=== PATIENT | female | born 1945 | race Caucasian/White ===

== ENCOUNTER → 2016-11-30 | Outpatient (CLI) | payer BC ==
[~2016-11-30] MED LIST: CHOL2000 PO; DILT240C56 PO; SIMV40TA4 PO; TRIA37.5 PO
--- NOTE | 2016-11-30 16:25 | MAMMOGRAPHY REPORT ---
BILATERAL DIGITAL SCREENING MAMMOGRAM WITH CAD: 11/30/2016 CLINICAL HISTORY: Routine screening examination. TECHNIQUE: Bilateral CC and MLO views were obtained. Current study was also evaluated with a Comput er Aided Detection (CAD) system. COMPARISON: Comparison is made to exams dated: 11/26/2015 mammogram, 05/25/2014 ultrasound, 11/22/2013 m ammogram, 05/25/2014 mammogram, 11/17/2013 mammogram, and 11/20/2014 mammogram - [facility]. BREAST COMPOSITION: There are scattered areas of fibroglandular density in both breasts. FINDINGS: There is a stable intramammary lymph node in the right upper outer posterior breast. Stab le scattered and grouped punctate benign-appearing microcalcifications bilaterally, most numerous in the left superior breast. No new suspicious mass, architectural distortion or cluster of microcalc ifications is seen. IMPRESSION: ACR BI-RADS CATEGORY 1: NEGATIVE There is no mammographic evidence of malignancy. A 1 year screening mammogram is recommended. The p atient will receive written notification of the results. Approximately 10% of breast cancers are not detected with mammography. A negative mammographic repor t should not delay biopsy if a clinically suggestive mass is present. Denise Tejada M.D. ay/:11/30/2016 14:24:04 Logistic Specialist: Leila VENTURA)(Mckenna), [facility] letter sent: Normal 1/2 BI-RADS Code: ACR BI-RADS Category 1: Negative
== END | disposition home or self-care (01) ==
LOC: C.MAMM 11:09
PROVIDERS: ATTEND Obstetrics & Gynecology
DX: Z12.31 Encounter for screening mammogram for malignant neoplasm of breast (principal)

== ENCOUNTER → 2017-01-21 | Outpatient (CLI) | payer BC ==
[2017-01-21 12:15] LABS: HEMATOCRIT 44.6 % (37-47); MEAN CELL VOLUME 93.1 fL (80-100); MEAN CORPUSCULAR HEMOGLOBIN 30.7 pg (25-34); MEAN PLATELET VOLUME 10.3 fL (7.4-10.4); PLATELET COUNT 294 K/uL (130-400); RED BLOOD COUNT 4.79 M/uL (4.2-5.4)
[2017-01-21 12:30] LABS: ESTIMATED AVERAGE GLUCOSE 117 mg/dl; HA1C FLAG Normal (Normal)
[2017-01-21 12:31] LABS: ALT/SGPT 29 U/L (12-78); AST/SGOT 21 U/L (15-37); BLOOD UREA NITROGEN 15 mg/dl (7-18); BUN/CREATININE RATIO 19.6 (10-20); CARBON DIOXIDE 28 mmol/L (21-32); CHLORIDE 105 mmol/L (98-107); CHOLESTEROL 139 mg/dl (0-200); CREATININE 0.77 mg/dl (0.60-1.20); GLUCOSE 101 mg/dl (70-99); POTASSIUM 3.7 mmol/L (3.5-5.1); SODIUM 142 mmol/L (136-145); TRIGLYCERIDES 90 mg/dl (0-150); VERY LOW DENSITY LIPOPROT CALC 18 mg/dl
[2017-01-21 12:33] LABS: ALKALINE PHOSPHATASE 67 U/L (45-117); CHOLESTEROL/HDL RATIO 2.5; HDL CHOLESTEROL 56 mg/dl; LDL CHOLESTEROL CALCULATED 65 mg/dl
[2017-01-21 12:38] LABS: CALCIUM 9.3 mg/dl (8.5-10.1)
== END | disposition home or self-care (01) ==
LOC: C.LABBFT 07:35
PROVIDERS: ATTEND Internal Medicine
DX: R73.01 Impaired fasting glucose (principal); I10 Essential (primary) hypertension; E55.9 Vitamin D deficiency, unspecified; E78.5 Hyperlipidemia, unspecified

== ENCOUNTER → 2017-08-19 | Outpatient (CLI) | payer BC ==
[~2017-08-19] MED LIST changes: +DILT-203 PO; -DILT240C56 PO
[2017-08-19 12:18] LABS: HEMATOCRIT 45.7 % (37-47); MEAN CELL VOLUME 93.6 fL (80-100); MEAN CORPUSCULAR HEMOGLOBIN 31.6 pg (25-34); MEAN CORPUSCULAR HGB CONC 33.7 g/dl (32-36); MEAN PLATELET VOLUME 10.3 fL (7.4-10.4); PLATELET COUNT 293 K/uL (130-400); RED BLOOD COUNT 4.88 M/uL (4.2-5.4); WHITE BLOOD COUNT 6.63 K/uL (4.8-10.8)
[2017-08-19 12:31] LABS: ALT/SGPT 30 U/L (12-78); AST/SGOT 20 U/L (15-37); BLOOD UREA NITROGEN 19 mg/dl (7-18); BUN/CREATININE RATIO 19.1 (10-20); CALCIUM 9.4 mg/dl (8.5-10.1); CARBON DIOXIDE 28 mmol/L (21-32); CHLORIDE 102 mmol/L (98-107); CHOLESTEROL 151 mg/dl (0-200); CREATININE 0.98 mg/dl (0.60-1.20); GLUCOSE 108 mg/dl (70-99); POTASSIUM 3.8 mmol/L (3.5-5.1); SODIUM 138 mmol/L (136-145); TRIGLYCERIDES 108 mg/dl (0-150); VERY LOW DENSITY LIPOPROT CALC 22 mg/dl
[2017-08-19 12:37] LABS: ESTIMATED AVERAGE GLUCOSE 117 mg/dl; HA1C FLAG Normal (Normal)
[2017-08-19 12:41] LABS: ALKALINE PHOSPHATASE 83 U/L (45-117); HDL CHOLESTEROL 50 mg/dl; LDL CHOLESTEROL CALCULATED 79 mg/dl
== END | disposition home or self-care (01) ==
LOC: C.LABBFT 07:18
PROVIDERS: ATTEND Internal Medicine
DX: E78.5 Hyperlipidemia, unspecified (principal); I10 Essential (primary) hypertension; R73.01 Impaired fasting glucose; E55.9 Vitamin D deficiency, unspecified

== ENCOUNTER → 2017-12-06 | Outpatient (CLI) | payer BC ==
--- NOTE | 2017-12-07 07:46 | MAMMOGRAPHY REPORT ---
BILATERAL DIGITAL SCREENING MAMMOGRAM TOMOSYNTHESIS WITH CAD: 12/06/2017 CLINICAL HISTORY: Routine screening. Patient has no complaints. TECHNIQUE: Breast tomosynthesis in addition to standard 2D mammography was performed. Current study was also evaluated with a Computer Aided Detection (CAD) system. COMPARISON: Comparison is made to exams dated: 11/30/2016 mammogram, 11/26/2015 mammogram, 11/20/2014 ma mmogram, 05/25/2014 mammogram, 11/22/2013 mammogram, and 11/17/2013 mammogram - [facility]. BREAST COMPOSITION: There are scattered areas of fibroglandular density in both breasts. FINDINGS: There is a stable intramammary lymph node in the upper outer posterior right breast. No miller spicious mass, architectural distortion or cluster of microcalcifications is seen. IMPRESSION: ACR BI-RADS CATEGORY 1: NEGATIVE There is no mammographic evidence of malignancy. A 1 year screening mammogram is recommended. The pa tient will receive written notification of the results. Approximately 10% of breast cancers are not detected with mammography. A negative mammographic report should not delay biopsy if a clinically suggestive mass is present. Denise Tejada M.D. ay/:12/06/2017 15:59:48 Competitive Athlete: Marivel VILLALOBOS(Jose Ramon)(Mckenna)([place]), [facility] letter sent: Normal 1/2 BI-RADS Code: ACR BI-RADS Category 1: Negative
== END | disposition home or self-care (01) ==
LOC: C.MAMM 11:03
PROVIDERS: ATTEND Obstetrics & Gynecology
DX: Z12.31 Encounter for screening mammogram for malignant neoplasm of breast (principal)

== ENCOUNTER → 2018-03-21 | Outpatient (CLI) | payer BC ==
[2018-03-21 17:41] LABS: ALBUMIN 3.8 gm/dl (3.4-5.0); ALKALINE PHOSPHATASE 83 U/L (45-117); ALT/SGPT 28 U/L (12-78); AST/SGOT 20 U/L (15-37); BLOOD UREA NITROGEN 15 mg/dl (7-18); CALCIUM 9.1 mg/dl (8.5-10.1); CARBON DIOXIDE 27 mmol/L (21-32); CHOLESTEROL 140 mg/dl (0-200); CREATININE 1.02 mg/dl (0.60-1.20); GLUCOSE 96 mg/dl (70-99); LDL CHOLESTEROL CALCULATED 67 mg/dl; POTASSIUM 3.7 mmol/L (3.5-5.1); SODIUM 136 mmol/L (136-145)
== END | disposition home or self-care (01) ==
LOC: C.LABBFT 12:06
PROVIDERS: ATTEND Internal Medicine
DX: E78.5 Hyperlipidemia, unspecified (principal); E55.9 Vitamin D deficiency, unspecified; R73.01 Impaired fasting glucose

== ENCOUNTER 2024-05-31 13:38 | Inpatient (IN) ==
--- NOTE | 2024-05-31 13:49 | Emergency Department Note ---
Impression & Plan Ambulatory dysfunction, Arthritis of left hip ED Provider Note NAME: AJITH KEITH AGE: 79 SEX: F : 1945 ARRIVES VIA: Ambulance INFORMANT: Patient ED PROVIDER(S): BROCK Sinclair, Shahla Morris DO CHIEF COMPLAINT: Left hip pain HISTORY OF PRESENT ILLNESS: This 79-year-old female patient presents to the emergency department via ambulance for evaluation of left hip pain. She reports pain is worsened over the last 4 days. She states she has a history of osteoarthritis in the left hip, and follows with orthopedics. She reports they recommended a left total hip, however the patient has worsened in the interim. Family is at bedside, and states the patient is having significant ambulatory dysfunction. The patient denies any numbness or tingling in the extremity, she denies any recent falls, or new injury. She is alert and oriented, she is neurovascularly intact. REVIEW OF SYSTEMS: A review of systems was performed with positives and pertinent negatives listed in the history of present illness. All other systems were reviewed and are negative. ALLERGIES: See below MEDICATIONS: See below PMH: See below PHYSICAL EXAM: VITALS: Vitals are noted on the nurse's note and reviewed by myself. Vital signs stable. GENERAL: 79-year-old female, in no acute distress, nondiaphoretic, well- developed well-nourished. SKIN: The skin was without rashes, erythema, edema, or bruising. HEAD: Normocephalic atraumatic. HEART: Regular rate and rhythm without murmurs gallops or rubs. LUNGS: Clear to auscultation bilaterally without wheezes, rales or rhonchi. No retractions or accessory muscle use. ABDOMEN: Positive bowel sounds x 4. Soft, nontender, without masses or organomegaly. sign negative. No guarding or rebound tenderness. MUSCULOSKELETAL: Limited ROM left lower extremity due to severe pain in the left hip joint, lateral left hip. TTP lateral left hip, posterior left knee, popliteal fossa. Limited ROM left knee, due to pain and proximal extremity. DP pulse intact, capillary refill <3. NEURO: Patient was alert and oriented to person place and time. No focal neurological deficits. MEDICAL DECISION MAKING: The patient is a pleasant, 79-year-old female who arrives to the emergency department for evaluation of the above-stated complaint. A saline lock was established, CBC, CMP, urinalysis were obtained. CBC shows no leukocytosis, with a stable hemoglobin and hematocrit, CMP is unremarkable, urinalysis negative for infection. CT imaging of the left hip, as well as the left lumbar spine were obtained which shows severe osteoarthritic changes of the left hip, with no acute bony abnormality. Ultrasound imaging was obtained to rule out DVT, which was negative. Family was able to inform nursing staff, as well as myself that the patient has been falling recently, and has worsened ambulatory status over the last few weeks. The patient was provided a topical Lidoderm patch, IV Toradol, and IV acetaminophen for pain control. An ambulatory trial was attempted, however was unsuccessful as the patient was unable to bear weight on the extremity. At that time I felt the need to admit the patient for ambulatory dysfunction, and pain control. [facility], Dr. Acosta who agreed to accept the patient for admission under his care. Orthopedic consult will be obtained during the patient's stay. Please refer to Dr. Acosta's documentation for further patient workup and care. The patient's case was discussed with Dr. Morris, who agreed with my evaluation and treatment plan. DIFFERENTIAL DIAGNOSIS: Fracture, subluxation, dislocation, contusion, ligamentous injury, neurovascular, compartment syndrome, as well as other pathologies. The chart was completed utilizing [employer] Speech voice recognition software. Grammatical errors, random word insertions, pronoun errors, and incomplete sentences are an occasional consequence of this system due to software limitations, ambient noise, and hardware issues. Any formal questions or concerns about the content, text, or information contained within the body of this dictation should be directly addressed to the physician for clarification. Past Med/Surg History Problem List (Updated 06/05/24 @ 01:07 by BROCK Early) Arthritis of left hip (Acute) Lower extremity edema Ambulatory dysfunction (Acute) Paresthesia of right foot Hip arthritis Greater trochanteric pain syndrome Tubular adenoma of colon Urinary incontinence Medicare annual wellness visit, subsequent Vitamin D deficiency (Chronic) Hypertension (Chronic) Impaired fasting glucose (Chronic) Hypercholesteremia (Chronic) Medical History (Updated 06/05/24 @ 01:07 by BROCK Early) Hypertension Hyperlipidemia Surgical History History of colonoscopy (07/30/16) Dr. Pozo, three polyps ranging 5-8 mm from rectum and sigmoid colon, tubular adenoma and hyperplastic, repeat recommended 3 years History of left cataract extraction Was given 2mg of IV versed without apparent complications History of rectocele HX OF RECTOCELE REPAIR History of bilateral tubal ligation History of cholecystectomy Family History Brother Prostate cancer Other No family history of adverse response to anesthesia Denies family history of Ovarian cancer Myocardial infarction Breast cancer Colorectal cancer Social History Smoking Status: Never smoker Tobacco Type: Cigarettes Cigarettes Per Day: QUIT MANY YEARS AGO; Second Hand Exposure: No; Do You Dip or Chew Tobacco: No; Hx Alcohol Use: No Hx Substance Use: No Preferred Language: Latvian Communication Ability: Effective Visual Impairment: No Limitations Hearing Ability: Use of Hearing Aid Asic Engineer Required: No Beliefs That Will Affect Care: None marital status: Current Living Situation: Alone current 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 status: retired 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[employer], [employer] Feels Safe at Home: Yes Safety Concerns: Feels Safe At This Time Childhood Exposure to Second-Hand Smoke: Yes Diet: low salt Diet Comment: watches her salt intake, does this by choice caffeine: Yes during the past year weight has: remained stable Dental Care, Regularly: No Physical Activity Frequency: Daily Physical Activity Frequency Comment: walking about 30 min a day Seatbelt Use: always Sunscreen Use: No Assistive Devices: Walker Allergies Allergies Allergy/AdvReac Type Severity Reaction Status Date / Time enalapril Allergy Unknown COUGH Verified 05/19/24 13:22 Home Meds Home Medications Medication Instructions Recorded Confirmed celecoxib 100 mg capsule (Celebrex) 100 mg PO BID PRN Other 05/31/24 05/31/24 Previous Rx's Medication Instructions Recorded ergocalciferol (vitamin D2) 1,250 50,000 unit PO WEEKLY #12 caps 11/13/23 mcg (50,000 unit) capsule triamterene 37.5 1 cap PO DAILY #90 caps 11/13/23 mg-hydrochlorothiazide 25 mg capsule diltiazem HCl 240 mg capsule,24 240 mg PO DAILY #90 caps 05/19/24 hr,extended release oxybutynin chloride 15 mg 15 mg PO DAILY #90 tabs 05/19/24 tablet,extended release 24 hr rosuvastatin 10 mg tablet 10 mg PO DAILY #90 tabs 05/19/24 Results & Data (ED) Vital Signs Vital Signs - 24 hr 05/31/24 13:39 Temperature 36.6 C Temperature Source Oral Pulse Rate 81 Pulse Rhythm Regular Pulse Strength Normal Respiratory Rate 20 Respiratory Effort / Characteristics Non-Labored Spontaneous Respiratory Depth Normal Blood Pressure 163/92 H Blood Pressure Mean 115 Blood Pressure Position Sitting Pulse Oximetry 96 Oxygen Delivery Method Room Air Sepsis Recent Fever Within 48 Hours No Sepsis New/Unexplained Change in Mental Status N/A Sepsis Action Taken by Nursing No Action Required Home Medications Current Medication List: was personally reviewed by me Laboratory Data Attestation: I reviewed the patient's lab results. 06/03/24 05:47 06/03/24 05:47 Lab Results 05/31/24 Range/Units 14:48 WBC 8.37 (4.8-10.8) K/ul RBC 4.09 L (4.20-5.40) M/uL Hgb 12.8 (12.0-16.0) g/dl Hct 37.6 (37.0-47.0) % MCV 91.9 (80.0-100.0) fL MCH 31.3 (25.0-34.0) pg MCHC 34.0 (32.0-36.0) g/dL RDW Std Deviation 46.5 H (36.4-46.3) fL RDW Coeff of Mitchell 13.6 (11.5-14.5) % Plt Count 259 (130-400) K/uL MPV 9.6 (9.4-12.4) fL Immature Gran % (Auto) 0.7 % Neut % (Auto) 75.5 % Lymph % (Auto) 11.8 % [place] % (Auto) 10.8 % Eos % (Auto) 0.8 % Baso % (Auto) 0.4 % Neut # (Auto) 6.32 (1.40-6.50) K/uL Lymph # (Auto) 0.99 L (1.20-3.40) K/uL [place] # (Auto) 0.90 H (0.11-0.59) K/uL Eos # (Auto) 0.07 (0.00-0.50) K/uL Baso # (Auto) 0.03 (0.00-0.20) K/uL Immature Gran # (Auto) 0.06 (0.01-0.20) K/uL Sodium 141 (136-145) mmol/L Potassium 4.2 (3.5-5.1) mmol/L Chloride 105 (98-107) mmol/L Carbon Dioxide 30 (21-32) mmol/L Anion Gap 6 (3-11) BUN 13 (6-23) mg/dl Creatinine 1.06 (0.6-1.2) mg/dl Est Cr Clr Drug Dosing 46.0 ml/min eGFR 53.44 BUN/Creatinine Ratio 12.3 (10-20) Glucose 95 (70-99(Fasting)) mg/dl Calcium 9.3 (8.6-10.3) mg/dl Total Bilirubin 0.6 (0.2-1.0) mg/dl AST 17 (13-39) U/L ALT 15 (7-52) U/L Alkaline Phosphatase 70 (34-104) U/L Total Protein 6.4 (6.0-8.3) gm/dl Albumin 3.8 (3.4-5.0) gm/dl Globulin 2.6 (2.5-4.0) gm/dl Albumin/Globulin Ratio 1.5 (0.9-2) Administered Medications Acetaminophen (Acetaminophen 325 Mg Tab) 650 mg PO Q4H PRN PRN Reason: Fever/Pain (Pain 1-7) Stop: 06/30/24 20:11 Last Admin: 06/04/24 18:08 Dose: 650 mg Documented By: Admin: 06/03/24 19:15 Dose: 650 mg Documented By: Admin: 06/03/24 12:50 Dose: 650 mg Documented By: Admin: 06/03/24 01:33 Dose: 650 mg Documented By: Admin: 06/02/24 02:15 Dose: 650 mg Documented By: Admin: 06/01/24 00:41 Dose: 650 mg Documented By: ZAKIA Diltiazem HCl (Diltiazem Hcl 240 Mg Capcr) 240 mg PO DAILY GIANCARLO Stop: 07/01/24 08:59 Last Admin: 06/04/24 08:10 Dose: 240 mg Documented By: Admin: 06/03/24 08:45 Dose: 240 mg Documented By: Admin: 06/02/24 09:19 Dose: 240 mg Documented By: Admin: 06/01/24 07:56 Dose: 240 mg Documented By: IAN Heparin Sodium (Porcine) (Heparin Sod 5,000 Unit/0.5 Ml Vial) 5,000 units SQ Q12 GIANCARLO Stop: 06/30/24 20:59 Last Admin: 06/04/24 20:24 Dose: 5,000 units Documented By: Admin: 06/04/24 08:17 Dose: 5,000 units Documented By: Admin: 06/03/24 21:05 Dose: 5,000 units Documented By: Admin: 06/03/24 08:51 Dose: 5,000 units Documented By: Admin: 06/02/24 20:29 Dose: 5,000 units Documented By: Admin: 06/02/24 09:22 Dose: 5,000 units Documented By: Admin: 06/01/24 20:10 Dose: 5,000 units Documented By: Admin: 06/01/24 07:56 Dose: 5,000 units Documented By: Admin: 05/31/24 21:55 Dose: 5,000 units Documented By: ZAKIA Lidocaine (Lidocaine 5% 1 Patch) 1 patch TD QAM GIANCARLO Stop: 07/01/24 08:59 Last Admin: 06/04/24 08:11 Dose: 1 patch Documented By: Admin: 06/03/24 12:50 Dose: 1 patch Documented By: Admin: 06/02/24 09:17 Dose: 1 patch Documented By: Admin: 06/01/24 07:56 Dose: 1 patch Documented By: IAN Miscellaneous (Remove Lidoderm Patch) 1 each N/A DAILY@2100 [facility] Stop: 06/30/24 20:59 Last Admin: 06/04/24 20:25 Dose: 1 each Documented By: Admin: 06/03/24 21:06 Dose: 1 each Documented By: Admin: 06/02/24 20:29 Dose: 1 each Documented By: Admin: 06/01/24 20:10 Dose: 1 each Documented By: Admin: 05/31/24 21:55 Dose: 1 each Documented By: ZAKIA Miscellaneous (Remove Lidoderm Patch) 1 each N/A DAILY@2100 [facility] Stop: 06/30/24 20:59 Last Admin: 06/04/24 20:25 Dose: Not Given Documented By: Admin: 06/03/24 21:06 Dose: Not Given Documented By: Admin: 06/02/24 20:29 Dose: Not Given Documented By: Admin: 06/02/24 00:21 Dose: Not Given Documented By: Admin: 05/31/24 21:55 Dose: Not Given Documented By: ZAKIA Oxybutynin Chloride (Oxybutynin Chloride Xl 5 Mg Tabcr) 15 mg PO DAILY [facility] Stop: 07/01/24 08:59 Last Admin: 06/04/24 08:10 Dose: 15 mg Documented By: Admin: 06/03/24 08:45 Dose: 15 mg Documented By: Admin: 06/02/24 09:19 Dose: 15 mg Documented By: Admin: 06/01/24 07:56 Dose: 15 mg Documented By: IAN Rosuvastatin Calcium (Rosuvastatin Calcium 10 Mg Tab) 10 mg PO DAILY [facility] Stop: 07/01/24 08:59 Last Admin: 06/04/24 10:51 Dose: 10 mg Documented By: Admin: 06/03/24 08:45 Dose: 10 mg Documented By: Admin: 06/02/24 09:18 Dose: 10 mg Documented By: Admin: 06/01/24 07:56 Dose: 10 mg Documented By: IAN Tramadol HCl (Tramadol Hcl 50 Mg Tablet) 50 mg PO Q6H PRN PRN Reason: Pain, breakthrough Stop: 07/01/24 13:55 Last Admin: 06/04/24 21:30 Dose: 50 mg Documented By: Admin: 06/03/24 20:57 Dose: 50 mg Documented By: DILMA Triamterene/Hydrochlorothiazide (Triamterene/Hctz 37.5/25mg Tab) 1 tab PO QAM [facility] Stop: 07/01/24 08:59 Last Admin: 06/04/24 08:10 Dose: 1 tab Documented By: Admin: 06/03/24 08:45 Dose: 1 tab Documented By: Admin: 06/02/24 09:19 Dose: 1 tab Documented By: Admin: 06/01/24 07:56 Dose: 1 tab Documented By: IAN Discontinued Medications Acetaminophen (Acetaminophen 500 Mg Tab) 1,000 mg PO NOW STA Stop: 05/31/24 14:38 Last Admin: 05/31/24 14:46 Dose: 1,000 mg Documented By: GIOVANNA Acetaminophen (Acetaminophen 325 Mg Tab) 650 mg PO NOW STA Stop: 05/31/24 19:18 Last Admin: 05/31/24 19:23 Dose: 650 mg Documented By: Ketorolac Tromethamine (Ketorolac Tromethamine 15 Mg/Ml Vial) 10 mg IV NOW ONE Stop: 05/31/24 14:38 Last Admin: 05/31/24 14:46 Dose: 10 mg Documented By: GIOVANNA Lidocaine (Lidocaine 5% 1 Patch) 1 patch TD NOW STA Stop: 05/31/24 14:38 Last Admin: 05/31/24 14:45 Dose: 1 patch Documented By: GIOVANNA Morphine Sulfate (Morphine Sulfate 2 Mg/Ml Carp) 2 mg IV NOW STA Stop: 05/31/24 19:25 Last Admin: 05/31/24 19:50 Dose: Not Given Documented By: Morphine Sulfate (Morphine Sulfate 2 Mg/Ml Carp) 2 mg IV Q4H PRN PRN Reason: Severe Pain (8-10) on NRS Stop: 06/14/24 20:11 Last Admin: 05/31/24 21:55 Dose: 2 mg Documented By: ZAKIA Imaging Data Attestation: I personally reviewed and interpreted this imaging study as follows: Discharge Plan Visit Data Chief Complaint: Hip Pain Stated Complaint: L HIP PAIN ED Provider: Shahla Morris ED Midlevel Provider: Naila Crane Discharge Problem: Ambulatory dysfunction, Arthritis of left hip Patient Disposition: Admitted As Inpatient Discharge Instructions Interventions: ED Discharge Assessment Last Done: 06/01/24 02:45
[2024-05-31] MEDS: LIDOCAINE 5% 1 PATCH TD STA (14:45)
[2024-05-31] MEDS: KETOROLAC TROMETHAMINE 15 MG/ML VIAL IV ONE (14:46)
[2024-05-31] MEDS: ACETAMINOPHEN 500 MG TAB PO STA (14:46)
[2024-05-31 15:10] LABS: Basophils # (auto) 0.03 K/uL (0.00-0.20); Basophils % (auto) 0.4 %; Eosinophils # (auto) 0.07 K/uL (0.00-0.50); Eosinophils % (auto) 0.8 %; Hematocrit (blood only) 37.6 % (37.0-47.0); Hemoglobin 12.8 g/dl (12.0-16.0); Immature Granulocytes # (auto) 0.06 K/uL (0.01-0.20); Immature Granulocytes % (auto) 0.7 %; Lymphocytes # (auto) 0.99 K/uL (1.20-3.40); Lymphocytes % (auto) 11.8 %; Mean Corpuscular Hemoglobin 31.3 pg (25.0-34.0); Mean Corpuscular Volume 91.9 fL (80.0-100.0); Mean Platelet Volume 9.6 fL (9.4-12.4); Monocytes % (auto) 10.8 %; Neutrophils # (auto) 6.32 K/uL (1.40-6.50); Neutrophils % (auto) 75.5 %; Platelet Count 259 K/uL (130-400); RDW Coefficient of Variation 13.6 % (11.5-14.5); RDW Standard Deviation 46.5 fL (36.4-46.3); Red Blood Count 4.09 M/uL (4.20-5.40); White Blood Count 8.37 K/ul (4.8-10.8)
[2024-05-31 15:19] LABS: Albumin Globulin Ratio 1.5 (0.9-2); Albumin Level 3.8 gm/dl (3.4-5.0); BUN Creatinine Ratio 12.3 (10-20); Bilirubin,Total 0.6 mg/dl (0.2-1.0); Calcium 9.3 mg/dl (8.6-10.3); Globulin 2.6 gm/dl (2.5-4.0); Potassium 4.2 mmol/L (3.5-5.1); Total Protein 6.4 gm/dl (6.0-8.3)
--- NOTE | 2024-05-31 15:34 | Ultrasound Report ---
ULTRASOUND LEFT LOWER EXTREMITY VENOUS CLINICAL HISTORY: Left leg pain. COMPARISON STUDY: No priors. TECHNIQUE: Real-time, grayscale, and color Doppler sonography of the deep veins of the left lower ext remity was performed from the inguinal crease to the calf. Compression and augmentation were utilized . FINDINGS: There is no sonographic evidence of deep venous thrombosis identified in the left lower ext remity. The common femoral, superficial femoral, and popliteal veins are patent and normally compress ible. The greater saphenous vein and the profunda femoris vein at the junction with the common femora l vein are clear. The visualized calf veins are patent. IMPRESSION: There is no sonographic evidence of deep venous thrombosis identified in the left lower e xtremity. ACT 112: Negative or not required by law. Electronically signed by: Alcides Hamilton M.D. 05/31/2024 3:32 PM
--- NOTE | 2024-05-31 15:41 | CT Scan Report ---
CT lumbar spine wo con CLINICAL HISTORY: pain, ambulatory dysfunction TECHNIQUE: Multidetector row helical CT of the lumbar spine was performed without administration of i ntravenous contrast. Coronal and sagittal reformations were obtained. Automated dose lowering techniq ues and/or adjustment according to patient size were utilized for this exam. Comparison: None available at the time of this dictation. FINDINGS: For counting purposes, the last complete intervertebral disc space is considered L5-S1. No acute fractures are identified. Degenerative changes are noted in the visualized spine. Vertebral body alignment is within normal limits. Atherosclerotic changes are seen in the aorta. High-grade jo-ann nosis in the left common iliac artery. Diverticulosis seen without diverticulitis. IMPRESSION: Degenerative changes without evidence of acute bony injury. ACT 112: Negative or not required by law. Electronically signed by: Cosmo Flores M.D. 05/31/2024 3:39 PM
--- NOTE | 2024-05-31 16:59 | CT Scan Report ---
CT SCAN OF THE LEFT HIP WITHOUT IV CONTRAST CLINICAL HISTORY: LEFT hip pain. Ambulatory dysfunction. COMPARISON STUDY: Pelvic CT dated 08/01/2009. TECHNIQUE: CT scan of the left hip was performed from the bony pelvis to the femoral shaft. Images ar e reviewed in the axial, sagittal, and coronal planes. IV contrast was not administered for this exam ination. A dose lowering technique was utilized adhering to the principles of ALARA. Note that interp retation is suboptimal without plain film correlate. CT DOSE: 1613.31 mGy.cm FINDINGS: The Skeletal structures are osteopenic. There is no evidence of acute fracture involving th e left hip or the visualized left hemipelvis. There is severe osteoarthritic change of the left hip w ith near complete loss of superior joint space, bony sclerosis, and overgrowth. There is minimal flat tening of the femoral head. A joint effusion is observed. No evidence of avascular necrosis is seen. No lytic or blastic lesion is identified. There is generalized atrophy of the regional musculature. N o left pelvic sidewall or inguinal lymphadenopathy is seen. Postsurgical change is partially visualiz ed in the pelvis. The bladder and uterus are normal as imaged. IMPRESSION: 1. No acute bony abnormality is identified. 2. Severe osteoarthritic change of the left hip as above. ACT 112: Negative or not required by law. Electronically signed by: Alcides Hamilton M.D. 05/31/2024 4:58 PM
--- NOTE | 2024-05-31 17:57 | History & Physical Report ---
Date of Service May 31, 2024 Assessment & Plan (1) Ambulatory dysfunction: Plan: Patient unable to bear weight on her left leg, and came to the emergency room on 05/31 Patient lives alone; per family, she has had recurrent/worsening unwitnessed falls Currently in discussions with orthopedics regarding left total hip replacement PT/OT consult appreciated Fall precautions Pain control Case management consult for potential rehab/SNF placement A.m. CBC, BMP (2) Hip arthritis: Plan: Left hip CT on arrival revealed severe osteoarthritic changes Orthopedic surgery consulted for potential left hip replacement (3) Lower extremity edema: Plan: +3 pitting edema in the lower extremities bilaterally; ?contributing to falls Patient reports she was recently told to stop taking her triamtereneHCTZ due to renal function (CrCl 46.0 on arrival) Renal function is okay on arrival; will plan to restart this medication given new onset/worsening LE edema Low-sodium diet Daily weights Strict I&O monitoring Trend BMP (4) Hypertension: Plan: Continue diltiazem Plan Disposition: Admit to [facility] Full Code Regular diet, low sodium VTE PPx: Heparin 5000u SQ q12h History of Present Illness Chief Complaint: Left hip pain, ambulatory dysfunction Primary Care Provider: Ely Bain MD Sandra is a 79-year-old female with PMH of hypercholesteremia, HTN, vitamin D deficiency, urinary incontinence, right hip arthritis, and greater trochanteric pain syndrome. She presented worsening pain in the right hip x 4 days, and inability to bear weight on 05/31. Patient lives alone, and family is concerned regarding recurrent unwitnessed falls, which have been increasing in frequency. Patient's [id number] (Destiney) is at the bedside and provides additional history. Patient follows with Dr. Nolasco (ortho), and has been in discussions regarding a left total hip replacement. Patient reports that the pain in her left hip is progressively getting worse. She characterizes it as a "sharp", intermittent pain like a "hot poker", followed by dull/achy pain. Ra diation down the left leg. She is not taking any pain medicine at home for this and generally tries to avoid pain medications. Patient is exacerbated when she bears weight on the leg; worse with movements. Patient fell twice last week. She is unable to get up on her own when she falls, but can sometimes crawl to the phone for help; family recently was told Mony in all rooms in her house. She moves with a walker at baseline. Patient took her regular morning medications today; she manages her own medications at home. She was recently told to stop taking triamterenehydrochlorothiazide due to her "kidney numbers". Since then, she does note that she has had increased swelling in her legs. Patient reports that she has had significant balance issues over the last few weeks. She no longer goes outside, or drives anymore. She is largely unable to get up on her own, per family. Patient is hypertensive 163/92 at time of admission; vitals otherwise stable. ED course: Toradol 10 mg IV Acetaminophen 1000 mg IV Lidocaine patch ROS: Patient endorses Patient denies Per nursing staff, patient was a 2+ assist and was unable to bear any weight on her leg. Allergies Allergy/AdvReac Type Severity Reaction Status Date / Time enalapril Allergy Unknown COUGH Verified 05/19/24 13:22 Home Medications Medication Instructions Recorded Confirmed Type ergocalciferol (vitamin D2) 1,250 50,000 unit PO WEEKLY #12 caps 11/13/23 05/31/24 Rx mcg (50,000 unit) capsule triamterene 37.5 1 cap PO DAILY #90 caps 11/13/23 05/31/24 Rx mg-hydrochlorothiazide 25 mg capsule diltiazem HCl 240 mg capsule,24 240 mg PO DAILY #90 caps 05/19/24 05/31/24 Rx hr,extended release oxybutynin chloride 15 mg 15 mg PO DAILY #90 tabs 05/19/24 05/31/24 Rx tablet,extended release 24 hr rosuvastatin 10 mg tablet 10 mg PO DAILY #90 tabs 05/19/24 05/31/24 Rx celecoxib 100 mg capsule (Celebrex) 100 mg PO BID PRN Other 05/31/24 05/31/24 History Past Med/Surg History Problem List (Updated 05/31/24 @ 18:55 by Charan Barriga PA-C) Lower extremity edema Ambulatory dysfunction Paresthesia of right foot Hip arthritis Greater trochanteric pain syndrome Tubular adenoma of colon Urinary incontinence Medicare annual wellness visit, subsequent Vitamin D deficiency (Chronic) Hypertension (Chronic) Impaired fasting glucose (Chronic) Hypercholesteremia (Chronic) Medical History (Updated 05/31/24 @ 18:55 by Charan Barriga PA-C) Hypertension Hyperlipidemia Surgical History History of colonoscopy (07/30/16) Dr. Pozo, three polyps ranging 5-8 mm from rectum and sigmoid colon, tubular adenoma and hyperplastic, repeat recommended 3 years History of left cataract extraction Was given 2mg of IV versed without apparent complications History of rectocele HX OF RECTOCELE REPAIR History of bilateral tubal ligation History of cholecystectomy Family History Brother Prostate cancer Other No family history of adverse response to anesthesia Denies family history of Ovarian cancer Myocardial infarction Breast cancer Colorectal cancer Social History Smoking Status: Never smoker Tobacco Type: Cigarettes Cigarettes Per Day: QUIT MANY YEARS AGO; Second Hand Exposure: No; Do You Dip or Chew Tobacco: No; Hx Alcohol Use: No Hx Substance Use: No Preferred Language: Palauan Communication Ability: Effective Visual Impairment: No Limitations Hearing Ability: Use of Hearing Aid Oil Filters Inspector Required: No Beliefs That Will Affect Care: None marital status: Current Living Situation: Alone current 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 status: retired 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, [employer] Feels Safe at Home: Yes Childhood Exposure to Second-Hand Smoke: Yes Diet: low salt Diet Comment: watches her salt intake, does this by choice caffeine: Yes during the past year weight has: remained stable Dental Care, Regularly: No Physical Activity Frequency: Daily Physical Activity Frequency Comment: walking about 30 min a day Seatbelt Use: always Sunscreen Use: No Assistive Devices: Denture - Upper, Denture - Lower, Glasses and Hearing Aid - Bilateral Review of Systems Review of Systems: See HPI above Physical Exam Physical Exam: General: no acute distress; pleasant affect; non-toxic appearing; cooperative; SpO2 94% on RA HEENT: normocephalic, atraumatic; no scleral icterus; PERRLA; vision and hearing grossly intact Neck: supple; no lymphadenopathy; trachea midline Skin: warm, dry without signs of tenting; no cyanosis; no rashes, bruising, lesions, or erythema noted CV: chest wall NTP; RRR; S1/S2 normal; no murmurs/rubs/gallops; pulses intact and symmetric at radial, DP, and PT Lungs: no acute respiratory distress; symmetrical chest wall expansion; clear breath sounds across all lung haro w/o adventitious sounds; no wheezing ABD: Soft, NTP; BS present; no rebound/guarding; no distention MSK: no tics or fasciculations; +3 pitting edema in the lower extremities bilaterally extending up towards the knee, nonerythematous; patient demonstrates to be able to wiggle toes/plantarflex/dorsiflex bilaterally with 5/5 strength; 3/5 strength when lifting left leg from the hip supine, 4/5 strength when lifting right leg from the hip supine Left hip: Mildly TTP; no rashes, bruising, or hematomas noted Neuro: A&Ox3; normal mood and affect; fluent speech; no focal deficits; sensation grossly intact in the LEs b/l Results & Data Results & Data Vital Signs (Past 12 Hours) Vital Signs Temp Pulse Pulse Resp BP BP Pulse Ox 05/31/24 13:52 72 20 163/92 H 94 05/31/24 13:39 36.6 C 81 20 163/92 H 96 O2 Del Method 05/31/24 13:52 Room Air 05/31/24 13:39 Room Air Laboratory Results Abnormal lab results 05/31/24 Range/Units 14:48 RBC 4.09 L (4.20-5.40) M/uL RDW Std Deviation 46.5 H (36.4-46.3) fL Lymph # (Auto) 0.99 L (1.20-3.40) K/uL [place] # (Auto) 0.90 H (0.11-0.59) K/uL Diagnostic Findings Venous Doppler Study 05/31/24 14:36 ULTRASOUND LEFT LOWER EXTREMITY VENOUS CLINICAL HISTORY: Left leg pain. COMPARISON STUDY: No priors. TECHNIQUE: Real-time, grayscale, and color Doppler sonography of the deep veins of the left lower extremity was performed from the inguinal crease to the calf. Compression and augmentation were utilized. FINDINGS: There is no sonographic evidence of deep venous thrombosis identified in the left lower extremity. The common femoral, superficial femoral, and popliteal veins are patent and normally compressible. The greater saphenous vein and the profunda femoris vein at the junction with the common femoral vein are clear. The visualized calf veins are patent. IMPRESSION: There is no sonographic evidence of deep venous thrombosis identified in the left lower extremity. ACT 112: Negative or not required by law. Electronically signed by: Alcides Hamilton M.D. 05/31/2024 3:[address] 05/31/24 14:52 CT SCAN OF THE LEFT HIP WITHOUT IV CONTRAST CLINICAL HISTORY: LEFT hip pain. Ambulatory dysfunction. COMPARISON STUDY: Pelvic CT dated 08/01/2009. TECHNIQUE: CT scan of the left hip was performed from the bony pelvis to the femoral shaft. Images are reviewed in the axial, sagittal, and coronal planes. IV contrast was not administered for this examination. A dose lowering technique was utilized adhering to the principles of ALARA. Note that interpretation is suboptimal without plain film correlate. CT DOSE: 1613.31 mGy.cm FINDINGS: The Skeletal structures are osteopenic. There is no evidence of acute fracture involving the left hip or the visualized left hemipelvis. There is severe osteoarthritic change of the left hip with near complete loss of superior joint space, bony sclerosis, and overgrowth. There is minimal flattening of the femoral head. A joint effusion is observed. No evidence of avascular necrosis is seen. No lytic or blastic lesion is identified. There is generalized atrophy of the regional musculature. No left pelvic sidewall or inguinal lymphadenopathy is seen. Postsurgical change is partially visualized in the pelvis. The bladder and uterus are normal as imaged. IMPRESSION: 1. No acute bony abnormality is identified. 2. Severe osteoarthritic change of the left hip as above. ACT 112: Negative or not required by law. Electronically signed by: Alcides Hamilton M.D. 05/31/2024 4:[address] 05/31/24 14:52 CT lumbar spine wo con CLINICAL HISTORY: pain, ambulatory dysfunction TECHNIQUE: Multidetector row helical CT of the lumbar spine was performed without administration of intravenous contrast. Coronal and sagittal reformations were obtained. Automated dose lowering techniques and/or adjustment according to patient size were utilized for this exam. Comparison: None available at the time of this dictation. FINDINGS: For counting purposes, the last complete intervertebral disc space is considered L5-S1. No acute fractures are identified. Degenerative changes are noted in the visualized spine. Vertebral body alignment is within normal limits. Atherosclerotic changes are seen in the aorta. High-grade stenosis in the left common iliac artery. Diverticulosis seen without diverticulitis. IMPRESSION: Degenerative changes without evidence of acute bony injury. ACT 112: Negative or not required by law. Electronically signed by: Cosmo Flores M.D. 05/31/2024 3:39 PM Code Status & VTE Plan Code Status Full code VTE Prophylaxis Plan VTE Prophylaxis will be ordered: Yes Supervising Physician Co-Signing Physician Notes Patient seen and examined, chart reviewed, case discussed with Charan Barriga PA-C and I agree with the assessment and plan as above except as otherwise noted Labs and images reviewed 79-year-old female who presents for worsened left hip pain now limiting her ability to ambulate at home. No longer bear weight and perform activities of daily living and lives alone. Presents for evaluation and placement as needed. Is pending evaluation by orthopedic surgery for hip replacement consulted. PT/OT consulted. Imaging is without evidence of fracture, degenerative disease of the left hip is seen. At bedside neurovascularly intact in the lower extremities bilaterally. Agree with above. PG Care Time/CCT Total # of Minutes Spent Total Time Spent with Patient: Total time spent is greater than 50% in coordination of care (as documented) at patient's floor/unit and/or counseling patient: Coding [place] [address] INT INP/OBS CARE 2/55MIN Patient Type Established Medical Decision Making Moderate Complexity Diagnoses Ambulatory dysfunction R26.2 Hip arthritis M16.10 Lower extremity edema R60.0 Hypertension I10
[2024-05-31] MEDS: ACETAMINOPHEN 325 MG TAB PO STA (19:23)
[2024-05-31] MEDS: MoRPHine SULFATE 2 MG/ML CARP IV STA (19:50)
[2024-05-31] MEDS ORDERED: MELATONIN 3 MG TAB PO PRN (20:12)
[2024-05-31] MEDS: HEPARIN SOD 5,000 UNIT/0.5 ML VIAL SQ SCH (21:55)
[2024-05-31] MEDS: MoRPHine SULFATE 2 MG/ML CARP IV PRN (21:55)
[2024-06-01] MEDS: ACETAMINOPHEN 325 MG TAB PO PRN (00:41)
[2024-06-01 01:33] LABS: Appearance Urine Cloudy (Clear); Bacteria Urine Automated None Seen (None Seen); Bilirubin Urine Negative (Negative); Blood Urine Negative (Negative); Color Urine Yellow; Glucose Urine UA Negative (Negative); Ketones Urine Trace (Negative); Leukocyte Esterase Urine Negative (Negative); Nitrite Urine Negative (Negative); Protein Urine Trace (Negative); RBC Urine Automated 0-2 /hpf (0-2); Specific Gravity Urine 1.028 (1.000-1.030); Urobilinogen Urine Negative (Negative); WBC Urine Automated 0-5 /hpf (0-5); pH Urine 5.5 (4.5-7.5)
--- NOTE | 2024-06-01 07:01 | Orthopedic Consultation ---
Date of Service June 01, 2024 Assessment & Plan (1) Arthritis of left hip: - At the consultation this morning, I had a detailed discussion with the patient regarding her HPI, symptoms, diagnosis, prognosis and recommendations. She did have an injection as an outpatient with Dr. Nolasco in January 2024. She states that it did not help her pain very much and that she is not interested in any other injections were about the outpatient or inpatient. I did discuss with her the use of interventional radiology for a left hip injection as an inpatient. She is not interested in this option. She is interested with talking with one of our orthopedic providers who does hip replacements. She states that she is comfortable at today's visit. States that her pain is under control when she is not moving much. She does have a positive logroll on physical exam. Her white count is within normal limits. Suspicion for infection low. This does seem to be an osteoarthritis flareup. She may follow-up as an outpatient with Dr. Gonzalez or Dr. Tomlinson first available to discuss left hip replacement. Did enco urage her to ask any questions or reach out in the meantime. She was pleased with the visit today. No other questions or concerns. Would recommend pain control per hospitalist team. History of Present Illness Reason for Consultation: left hip pain-known OA Requesting Physician: . Attending Physician: Minor Acosta MD Sandra is a 79-year-old female who is being consulted today due to left hip pain and inability to bear weight on the left lower extremity. She is known to [facility] orthopedic clinic as she has been treated for left hip osteoarthritis by Dr. Nolasco for some time now. She last had an intra-articular left hip injection by Dr. Nolasco in January 2024. She states that she is no longer interested in any injections whether that be outpatient or inpatient. She states that it did not help her hip very much and she is ready to get the hip replaced. She states that she reported to the emergency department yesterday due to the hip pain that she had in the anterior aspect of her hip as well as the pain with weightbearing. She denies any fever, chills or constitutional symptoms. States that she has had flareups in the past of her left hip. Does state that the pain radiates from her hip down to her knee. Per Dr. Nolasco last note, EMG of the left lower extremity was negative for any lumbar pathology. Patient states she is not interested in injections at this hospital visit. She is interested in discussing replacement with Dr. Tomlinson or Dr. Gonzalez. She states she is comfortable in her hospital bed today. Allergies Allergy/AdvReac Type Severity Reaction Status Date / Time enalapril Allergy Unknown COUGH Verified 05/19/24 13:22 Home Medications Medication Instructions Recorded Confirmed Type ergocalciferol (vitamin D2) 1,250 50,000 unit PO WEEKLY #12 caps 11/13/23 05/31/24 Rx mcg (50,000 unit) capsule triamterene 37.5 1 cap PO DAILY #90 caps 11/13/23 05/31/24 Rx mg-hydrochlorothiazide 25 mg capsule diltiazem HCl 240 mg capsule,24 240 mg PO DAILY #90 caps 05/19/24 05/31/24 Rx hr,extended release oxybutynin chloride 15 mg 15 mg PO DAILY #90 tabs 05/19/24 05/31/24 Rx tablet,extended release 24 hr rosuvastatin 10 mg tablet 10 mg PO DAILY #90 tabs 05/19/24 05/31/24 Rx celecoxib 100 mg capsule (Celebrex) 100 mg PO BID PRN Other 05/31/24 05/31/24 History diclofenac sodium 1 % topical gel 2 g EXT QID #30 grams 06/08/24 Rx (Voltaren Arthritis Pain) lidocaine 5 % topical patch 1 patch transdermal QAM #5 ea 06/08/24 Rx tramadol 50 mg tablet 50 mg PO Q6H PRN pain #20 tabs 06/08/24 Rx Past Med/Surg History Problem List (Updated 06/05/24 @ 01:07 by BROCK Early) Arthritis of left hip (Acute) Lower extremity edema Ambulatory dysfunction (Acute) Paresthesia of right foot Hip arthritis Greater trochanteric pain syndrome Tubular adenoma of colon Urinary incontinence Medicare annual wellness visit, subsequent Vitamin D deficiency (Chronic) Hypertension (Chronic) Impaired fasting glucose (Chronic) Hypercholesteremia (Chronic) Medical History (Updated 06/05/24 @ 01:07 by BROCK Early) Hypertension Hyperlipidemia Surgical History History of colonoscopy (07/30/16) Dr. Pozo, three polyps ranging 5-8 mm from rectum and sigmoid colon, tubular adenoma and hyperplastic, repeat recommended 3 years History of left cataract extraction Was given 2mg of IV versed without apparent complications History of rectocele HX OF RECTOCELE REPAIR History of bilateral tubal ligation History of cholecystectomy Family History Brother Prostate cancer Other No family history of adverse response to anesthesia Denies family history of Ovarian cancer Myocardial infarction Breast cancer Colorectal cancer Social History Smoking Status: Never smoker Tobacco Type: Cigarettes Cigarettes Per Day: QUIT MANY YEARS AGO; Second Hand Exposure: No; Do You Dip or Chew Tobacco: No; Hx Alcohol Use: No Hx Substance Use: No Preferred Language: Lithuanian Communication Ability: Effective Visual Impairment: No Limitations Hearing Ability: Use of Hearing Aid Order Packer Or Packager Required: No Beliefs That Will Affect Care: None marital status: Current Living Situation: Alone current 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 status: 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 Physical Exam General: Alert and oriented. No acute distress. Dedicated left hip exam: Inspection unremarkable. No erythema, open wounds or deformities. Did perform some gentle range of motion. She does have a positive logroll. Did have pain with other range of motion activities, therefore we did not perform that much du e to the patient's comfort. Her sensation was intact. Distal pulses palpated. Cap refill less than 3 seconds. Constitutional WD/WN, vitals as above Musculoskeletal See above. Psychiatric A+Ox3, euthymic affect Results & Data Results & Data Laboratory Results Laboratory Results - last 24 hr 05/31/24 06/01/24 14:48 01:00 WBC 8.37 RBC 4.09 L Hgb 12.8 Hct 37.6 MCV 91.9 MCH 31.3 MCHC 34.0 RDW Std Deviation 46.5 H RDW Coeff of Mitchell 13.6 Plt Count 259 MPV 9.6 Immature Gran % (Auto) 0.7 Neut % (Auto) 75.5 Lymph % (Auto) 11.8 Ida % (Auto) 10.8 Eos % (Auto) 0.8 Baso % (Auto) 0.4 Neut # (Auto) 6.32 Lymph # (Auto) 0.99 L Ida # (Auto) 0.90 H Eos # (Auto) 0.07 Baso # (Auto) 0.03 Immature Gran # (Auto) 0.06 Sodium 141 Potassium 4.2 Chloride 105 Carbon Dioxide 30 Anion Gap 6 BUN 13 Creatinine 1.06 Est Cr Clr Drug Dosing 46.0 eGFR 53.44 BUN/Creatinine Ratio 12.3 Glucose 95 Calcium 9.3 Total Bilirubin 0.6 AST 17 ALT 15 Alkaline Phosphatase 70 Total Protein 6.4 Albumin 3.8 Globulin 2.6 Albumin/Globulin Ratio 1.5 Urine Color Yellow Urine Appearance Cloudy A Urine pH 5.5 Ur Specific [place] 1.028 Urine Protein Trace H Urine Glucose (UA) Negative Urine Ketones Trace H Urine Blood Negative Urine Nitrite Negative Urine Bilirubin Negative Urine Urobilinogen Negative Ur Leukocyte Esterase Negative Urine WBC (Auto) 0-5 Urine RBC (Auto) 0-2 U Hyaline Cast (Auto) 3-5 H U Epithel Cells (Auto) 6-10 H Urine Bacteria (Auto) None Seen Diagnostic Findings I did review x-ray images of the left hip including AP pelvis from August 2023 as well as the CT of the left hip that was taken this month. I do not see any acute bony abnormalities, fractures or dislocations within the hip or the pelvis. She does have severe osteoarthritis of the left hip. PG Care Time/CCT Total # of Minutes Spent Total Time Spent with Patient: Total time spent is greater than 50% in coordination of care (as documented) at patient's floor/unit and/or counseling patient: Coding Level of Care Code 50448 IN/OBS CONSULT LVL 3,45M Diagnoses Arthritis of left hip M16.12
[2024-06-01] MEDS: LIDOCAINE 5% 1 PATCH TD SCH (07:56)
[2024-06-01] MEDS: OXYBUTYNIN CHLORIDE XL 5 MG TABCR PO SCH (07:56)
[2024-06-01] MEDS: TRIAMTERENE/HCTZ 37.5/25MG TAB PO SCH (07:56)
[2024-06-01] MEDS: ROSUVASTATIN CALCIUM 10 MG TAB PO SCH (07:56)
[2024-06-01] MEDS: dilTIAZem HCL 240 MG CAPCR PO SCH (07:56)
[2024-06-01 07:58] LABS: Basophils # (auto) 0.05 K/uL (0.00-0.20); Basophils % (auto) 0.7 %; Eosinophils # (auto) 0.19 K/uL (0.00-0.50); Eosinophils % (auto) 2.6 %; Hematocrit (blood only) 34.3 % (37.0-47.0); Hemoglobin 11.2 g/dl (12.0-16.0); Immature Granulocytes # (auto) 0.03 K/uL (0.01-0.20); Immature Granulocytes % (auto) 0.4 %; Lymphocytes # (auto) 1.11 K/uL (1.20-3.40); Lymphocytes % (auto) 15.4 %; Mean Corpuscular Hemoglobin 30.1 pg (25.0-34.0); Mean Corpuscular Hgb Conc 32.7 g/dL (32.0-36.0); Mean Corpuscular Volume 92.2 fL (80.0-100.0); Mean Platelet Volume 9.7 fL (9.4-12.4); Monocytes # (auto) 0.78 K/uL (0.11-0.59); Monocytes % (auto) 10.8 %; Neutrophils # (auto) 5.04 K/uL (1.40-6.50); Neutrophils % (auto) 70.1 %; Platelet Count 235 K/uL (130-400); RDW Coefficient of Variation 13.7 % (11.5-14.5); RDW Standard Deviation 46.5 fL (36.4-46.3); Red Blood Count 3.72 M/uL (4.20-5.40)
[2024-06-01 08:12] LABS: BUN Creatinine Ratio 16.7 (10-20); Calcium 8.7 mg/dl (8.6-10.3); Creatinine Clr Calc Pharmacy 46.9 ml/min
--- NOTE | 2024-06-01 13:57 | Hospitalist Progress Note ---
Date of Service June 01, 2024 Assessment & Plan (1) Ambulatory dysfunction: Plan: Ambulatory dysfunction due to inability to bear weight on her left leg due to osteoarthritis of the left hip PT/OT pending (2) Hip arthritis: Plan: Left hip CT with severe osteoarthritis, no evidence of fracture Patient has had prior hip injections which were reviewed with her by orthopedics. She is not interested in further injections and notes she does not feel she had significant/durable response from these On orthopedic valuation is recommended to follow-up as an outpatient for total hip replacement, pain control in the meantime Continue Tylenol, Toradol, and will transition to breakthrough tramadol for pain control PT/OT pending Case management consulted, anticipate patient will have at least short-term placement needs due to her inability to ambulate independently and perform activities of daily living at home at this time. Will need continued instruction and coaching for ambulation with walker (3) Lower extremity edema: Plan: Does have 3+ bilateral pitting edema, but lungs are clear no JVD. Suspect alan ous stasis TriametereneHCTZ and continued, renal function is at baseline and stable (4) Hypertension: Plan: Continue diltiazem Plan Disposition: MedSur Full Code Regular diet, low sodium VTE PPx: Heparin 5000u SQ q12h Disposition: Pending placement evaluation with PT/OT. Admission and Anticipated Discharge Date Admission Date: May 31, 2024 Elieser Flores is seen at the bedside this morning. She does have severe pain in her left hip. She was not able to ambulate well with physical therapy or engage this morning at their visit. She reports she does not like the idea of rehab, but knows that in her current level of function that she needs this as she is not able to ambulate independently at home. Did see orthopedics for evaluation of left hip arthritis. Did have a injection as an outpatient January 2024, does not feel that she has had durable improvement from steroids and is not interested in pursuing further steroid treatments. Did see orthopedics and is plan for outpatient follow-up for total hip replacement, and is recommended for acute pain control as inpatient and progression to outpatient follow-up. Physical Exam Physical Exam: General: A&Ox3. NAD. Cooperative. HEENT: Atraumatic, normocephalic. Pulm: CTAB A&P. -wheezes, -rales, -rhonchi. Symmetrical chest rise. No increased work of breathing. No respiratory distress. Cardiac: RRR, -mrg. Radial pulses intact and symmetrical. Abdominal: Nontender, nondistended, soft. BS present. Extremities: Endorses left hip pain with limited weightbearing of the heel, and on logroll. No pain at rest. Sensation of soft touch is intact in feet bilaterally, ankle dorsiflexion/plantarflexion 5/5 without strength asymmetry. Results & Data Results & Data Vital Signs (Past 12 Hours) Vital Signs Temp Pulse Resp BP Pulse Ox O2 Del Method 06/01/24 07:22 Room Air 06/01/24 07:05 36.5 C 71 16 132/76 95 Room Air PG Care Time/CCT Total # of Minutes Spent Total Time Spent with Patient: Total time spent is greater than 50% in coordination of care (as documented) at patient's floor/unit and/or counseling patient: Coding Level of Care Code 62737 SUB INP/OBS CARE 2/35MIN Diagnoses Ambulatory dysfunction R26.2 Hip arthritis M16.10 Lower extremity edema R60.0 Hypertension I10
[2024-06-02 10:00] LABS: Basophils # (auto) 0.03 K/uL (0.00-0.20); Basophils % (auto) 0.4 %; Eosinophils # (auto) 0.18 K/uL (0.00-0.50); Eosinophils % (auto) 2.7 %; Hemoglobin 12.6 g/dl (12.0-16.0); Immature Granulocytes # (auto) 0.06 K/uL (0.01-0.20); Immature Granulocytes % (auto) 0.9 %; Lymphocytes # (auto) 0.81 K/uL (1.20-3.40); Mean Corpuscular Hgb Conc 34.1 g/dL (32.0-36.0); Mean Corpuscular Volume 91.1 fL (80.0-100.0); Mean Platelet Volume 9.5 fL (9.4-12.4); Monocytes # (auto) 0.63 K/uL (0.11-0.59); Monocytes % (auto) 9.3 %; Neutrophils # (auto) 5.05 K/uL (1.40-6.50); Neutrophils % (auto) 74.7 %; Platelet Count 250 K/uL (130-400); RDW Coefficient of Variation 13.6 % (11.5-14.5); RDW Standard Deviation 45.5 fL (36.4-46.3); Red Blood Count 4.06 M/uL (4.20-5.40); White Blood Count 6.76 K/ul (4.8-10.8)
[2024-06-02 10:13] LABS: BUN Creatinine Ratio 15.8 (10-20); Calcium 9.5 mg/dl (8.6-10.3); Potassium 3.6 mmol/L (3.5-5.1)
--- NOTE | 2024-06-02 16:33 | Hospitalist Progress Note ---
Date of Service June 02, 2024 Assessment & Plan (1) Ambulatory dysfunction: Plan: Ambulatory dysfunction due to inability to bear weight on her left leg due to osteoarthritis of the left hip Seen by PT/OT. Patient would benefit from inpatient rehab Referrals to [facility] are pending (2) Hip arthritis: Plan: Left hip CT with severe osteoarthritis, no evidence of fracture Patient has had prior hip injections which were reviewed with her by orthopedics. She is not interested in further injections and notes she does not feel she had significant/durable response from these On orthopedic valuation is recommended to follow-up as an outpatient for total hip replacement, pain control in the meantime Continue Tylenol, Toradol, and will transition to breakthrough tramadol for pain control PT/OT pending Case management consulted, referrals have been placed to [facility]. Pending placement at this time. Will need rehab, and will have follow-up for DKA as outpatient. Pain is adequately controlled at bedside visit today (3) Lower extremity edema: Plan: Does have chronic bilateral pitting edema, but lungs are clear no JVD. Suspect venous stasis TriametereneHCTZ and continued, renal function is at baseline and stable Leg elevation and venous mobilization strategies. Pitting edema is slightly improved / (4) Hypertension: Plan: Continue diltiazem Plan Disposition: MedSurg Full Code Regular diet, low sodium VTE PPx: Heparin 5000u SQ q12h Disposition: Pending placement Admission and Anticipated Discharge Date Admission Date: May 31, 2024 Elieser Flores is seen at the bedside. No distress. She reports that she is very pleased with her care with physical therapy and they have been very helpful at teaching her how to use a rolling walker. Despite this she does still have some difficulty ambulating and would benefit from inpatient rehab to which she is agreeable and referrals have been sent to [facility]. She has had no fever chills or sweats. Otherwise feels well with no questions or concerns at bedside. She has not had any shortness of breath chest pain chest pressure. Is awaiting placement at this Physical Exam Physical Exam: General: A&Ox3. NAD. Cooperative. HEENT: Atraumatic, normocephalic. Pulm: CTAB A&P. -wheezes, -rales, -rhonchi. Symmetrical chest rise. No increased work of breathing. No respiratory distress. Cardiac: RRR, -mrg. Radial pulses intact and symmetrical. Abdominal: Nontender, nondistended, soft. BS present. Extremities: Endorses left pain on attempted weightbearing, patient is comfortable at rest today Results & Data Results & Data Vital Signs (Past 12 Hours) Vital Signs Temp Pulse Resp BP BP Pulse Ox O2 Del Method 06/02/24 14:57 36.6 C 80 16 149/82 H 94 Room Air 06/02/24 08:05 36.9 C 69 16 145/77 H 93 Room Air 06/02/24 08:00 Room Air PG Care Time/CCT Total # of Minutes Spent Total Time Spent with Patient: Total time spent is greater than 50% in coordination of care (as documented) at patient's floor/unit and/or counseling patient: Coding Level of Care Code 51309 SUB INP/OBS CARE 09/16MIN Diagnoses Ambulatory dysfunction R26.2 Hip arthritis M16.10 Lower extremity edema R60.0 Hypertension I10
[2024-06-03 06:42] LABS: Basophils # (auto) 0.04 K/uL (0.00-0.20); Basophils % (auto) 0.5 %; Eosinophils # (auto) 0.21 K/uL (0.00-0.50); Eosinophils % (auto) 2.6 %; Hematocrit (blood only) 36.6 % (37.0-47.0); Hemoglobin 12.6 g/dl (12.0-16.0); Immature Granulocytes # (auto) 0.08 K/uL (0.01-0.20); Lymphocytes # (auto) 1.12 K/uL (1.20-3.40); Lymphocytes % (auto) 14.1 %; Mean Corpuscular Hemoglobin 31.7 pg (25.0-34.0); Mean Corpuscular Hgb Conc 34.4 g/dL (32.0-36.0); Mean Corpuscular Volume 92.2 fL (80.0-100.0); Mean Platelet Volume 9.9 fL (9.4-12.4); Monocytes % (auto) 11.3 %; Neutrophils % (auto) 70.5 %; Platelet Count 267 K/uL (130-400); RDW Coefficient of Variation 13.4 % (11.5-14.5); RDW Standard Deviation 45.5 fL (36.4-46.3); Red Blood Count 3.97 M/uL (4.20-5.40); White Blood Count 7.95 K/ul (4.8-10.8)
[2024-06-03 07:03] LABS: BUN Creatinine Ratio 19.6 (10-20); Calcium 8.9 mg/dl (8.6-10.3); Creatinine Clr Calc Pharmacy 44.5 ml/min; Potassium 3.8 mmol/L (3.5-5.1)
--- NOTE | 2024-06-03 18:14 | Hospitalist Progress Note ---
Date of Service June 03, 2024 Assessment & Plan (1) Ambulatory dysfunction: Plan: Ambulatory dysfunction due to inability to bear weight on her left leg due to osteoarthritis of the left hip Patient reports that she does have 1013 steps to her basement, and 1 step into her home. Patient also feels she is not strong enough worth could not balance on 1 leg to do activities such as cooking safely by herself at this time - Was contacted for peer to peer which was completed approximately 5 PM. Reviewed that patient has a step into her home, and 13 steps into her basement which she is unable to ascend in order to complete all her activities of daily living. Peer to peer denied as her rehab potential was not felt to be likely to change her clinical course as ultimately she will need a hip replacement and was not felt that short-term rehab would make a meaningful difference in her functional mobility prior to this. Patient was recommended for home modification if able, or alternatively SNF authorization and placement. Patient and family notified, will review options with case management in the morning. (2) Hip arthritis: Plan: Left hip CT with severe osteoarthritis, no evidence of fracture Patient has had prior hip injections which were reviewed with her by orthopedics. She is not interested in further injections and notes she does not feel she had significant/durable response from these On orthopedic valuation is recommended to follow-up as an outpatient for total hip replacement, pain control in the meantime Continue Tylenol, Toradol, and will transition to breakthrough tramadol for pain control PT/OT pending Case management consulted, referrals have been placed to [facility]. Pending placement at this time. Will need rehab, and will have follow-up for TKA as outpatient. Pain is adequately controlled at bedside visit today (3) Lower extremity edema: Plan: Does have chronic bilateral pitting edema, but lungs are clear no JVD. Suspect venous stasis TriametereneHCTZ and continued, renal function is at baseline and stable Leg elevation and venous mobilization strategies. Pitting edema is slightly improved / (4) Hypertension: Plan: Continue diltiazem Plan Disposition: MedSurg Full Code Regular diet, low sodium VTE PPx: Heparin 5000u SQ q12h Disposition: Pending placement Admission and Anticipated Discharge Date Admission Date: May 31, 2024 Subjective PT patient is resting comfortably in the morning. Seen in afternoon on reassessment. She reports that she continues to feel well, unchanged from prior. She reports that she continues to do well with a rolling walker and is able to offload her hip and ambulate short distances but has been completely unable to bear weight to a send/descend steps due to severe pain. No other changes, no overnight events. Was contacted for peer to peer which was completed approximately 5 PM. Reviewed that patient has a step into her home, and 13 steps into her basement which she is unable to ascend in order to complete all her activities of daily living. Peer to peer denied as her rehab potential was not felt to be likely to change her clinical course as ultimately she will need a hip replacement and was not felt that short-term rehab would make a meaningful difference in her functional mobility prior to this. Patient was recommended for home modification if able, or alternatively SNF authorization and placement. Patient and family notified, will review options with case management in the morning. Physical Exam Physical Exam: General: A&Ox3. NAD. Cooperative. HEENT: Atraumatic, normocephalic. Pulm: CTAB A&P. -wheezes, -rales, -rhonchi. Symmetrical chest rise. No increased work of breathing. No respiratory distress. Cardiac: RRR, -mrg. Radial pulses intact and symmetrical. Abdominal: Nontender, nondistended, soft. BS present. Extremities: Continues with pain on the left weightbearing/heel load otherwise comfortable at rest. Neurovascularly intact. Ankle dorsiflexion/plantarflexion 5/5 bilaterally Results & Data Results & Data Vital Signs (Past 12 Hours) Vital Signs Temp Pulse Resp BP BP Pulse Ox O2 Del Method 06/03/24 15:21 36.9 C 65 18 116/70 93 Room Air 06/03/24 07:47 37.0 C 71 15 132/72 94 Room Air 06/03/24 07:37 Room Air PG Care Time/CCT Total # of Minutes Spent Total Time Spent with Patient: Total time spent is greater than 50% in coordination of care (as documented) at patient's floor/unit and/or counseling patient: Coding Level of Care Code 44855 SUB INP/OBS CARE 2/35MIN Diagnoses Ambulatory dysfunction R26.2 Hip arthritis M16.10 Lower extremity edema R60.0 Hypertension I10
[2024-06-03] MEDS: traMADol HCL 50 MG TABLET PO PRN (20:57)
--- NOTE | 2024-06-04 13:15 | Hospitalist Progress Note ---
Date of Service June 04, 2024 Assessment & Plan (1) Ambulatory dysfunction: Plan: Ambulatory dysfunction due to inability to bear weight on her left leg due to osteoarthritis of the left hip Patient reports that she does have 1013 steps to her basement, and 1 step into her home. Patient also feels she is not strong enough worth could not balance on 1 leg to do activities such as cooking safely by herself at this time - Was contacted for peer to peer which was completed approximately 5 PM. Reviewed that patient has a step into her home, and 13 steps into her basement which she is unable to ascend in order to complete all her activities of daily living. Peer to peer denied as her rehab potential was not felt to be likely to change her clinical course as ultimately she will need a hip replacement and was not felt that short-term rehab would make a meaningful difference in her functional mobility prior to this. Patient was recommended for home modification if able, or alternatively SNF authorization and placement. Reviewed with patient. Would like to pursue SNF placement. Case management following, referrals being made no accepting facility at this time (2) Hip arthritis: Plan: Left hip CT with severe osteoarthritis, no evidence of fracture Patient has had prior hip injections which were reviewed with her by orthopedics. She is not interested in further injections and notes she does not feel she had significant/durable response from these On orthopedic valuation is recommended to follow-up as an outpatient for total hip replacement, pain control in the meantime Continue Tylenol, Toradol, and will transition to breakthrough tramadol for pain control PT/OT pending Case management consulted, pending SNF until patient either improves enough to be able to be independent at home or is able to get TKA (3) Lower extremity edema: Plan: Does have chronic bilateral pitting edema, but lungs are clear no JVD. Suspect venous stasis TriametereneHCTZ and continued, renal function is at baseline and stable Leg elevation and venous mobilization strategies as needed (4) Hypertension: Plan: Continue diltiazem Plan Disposition: MedSur Full Code Regular diet, low sodium VTE PPx: Heparin 5000u SQ q12h Disposition: Pending placement Admission and Anticipated Discharge Date Admission Date: May 31, 2024 Subjective Seen in the bedside. No change from yesterday. Comfortable at rest, ambulation is improving with her walker however she is still completely unable to go up or down stairs, feels that she is not able perform any activities of daily living at home independently, and notes that she has 13 stairs into the bottom of her home which she does not feel safe managing. Rehab referral was denied on appeal, patient is agreeable to SNF. Referrals have been placed. Case management following Physical Exam Physical Exam: General: A&Ox3. NAD. Cooperative. HEENT: Atraumatic, normocephalic. Pulm: CTAB A&P. -wheezes, -rales, -rhonchi. Symmetrical chest rise. No increased work of breathing. No respiratory distress. Cardiac: RRR, -mrg. Radial pulses intact and symmetrical. Abdominal: Nontender, nondistended, soft. BS present. Extremities: Neurovascularly intact, no pain at rest sitting in bed Results & Data Results & Data Vital Signs (Past 12 Hours) Vital Signs Temp Pulse Resp BP Pulse Ox O2 Del Method 06/04/24 07:48 36.9 C 71 16 124/69 93 Room Air PG Care Time/CCT Total # of Minutes Spent Total Time Spent with Patient: Total time spent is greater than 50% in coordination of care (as documented) at patient's floor/unit and/or counseling patient: Coding Level of Care Code 02453 SUB INP/OBS CARE 1/25MIN Diagnoses Ambulatory dysfunction R26.2 Hip arthritis M16.10 Lower extremity edema R60.0 Hypertension I10
[2024-06-05] MEDS: DICLOFENAC SOD 1% GEL 100 GM TUBE EXT SCH (09:00)
--- NOTE | 2024-06-05 12:13 | Hospitalist Progress Note ---
Date of Service June 05, 2024 Assessment & Plan (1) Ambulatory dysfunction: Plan: Due to severe DJD of the left hip. Supportive care. Continue OT and PT while hospitalized (2) Hip arthritis: Plan: Left hip CT with severe osteoarthritis, no evidence of fracture. She will pursue left total hip arthroplasty at a later date. Supportive care. Pain control measures. (3) Lower extremity edema: Plan: chronic bilateral pitting edema due to chronic venous insufficiency. No evidence of CHF. (4) Hypertension: Plan: Stable. Continue diltiazem Plan Anticipate discharge to SNF facility when arrangements are finalized Admission and Anticipated Discharge Date Admission Date: May 31, 2024 Subjective Alert and oriented. No distress. Awaiting SNF placement Review of Systems 2 Review of Systems: General-alert and oriented x3, no fever, no chills HEENT-head atraumatic and normocephalic, pupils equal and reactive to light, extraocular muscles intact Neck-no lymphadenopathy or thyromegaly, trachea midline Chest-clear to auscultation. No rales, wheezing or rhonchi Cardiac-regular rate and rhythm, normal S1 and S2 Abdomen-normal bowel sounds, no hepatosplenomegaly Extremities-chronic left hip pain with ambulatory dysfunction Neuro-cranial nerves II through XII intact, motor and sensory function within normal limits, strength symmetrical, no focal deficits Psych-normal affect, normal mood Physical Exam 2 Physical Exam: General-alert and oriented x3, no fever, no chills HEENT-head atraumatic and normocephalic, pupils equal and reactive to light, extraocular muscles intact Neck-no lymphadenopathy or thyromegaly, trachea midline Chest-clear to auscultation. No rales, wheezing or rhonchi Cardiac-regular rate and rhythm, normal S1 and S2 Abdomen-normal bowel sounds, no hepatosplenomegaly Extremities-no cyanosis, clubbing, or edema Neuro-cranial nerves II through XII intact, motor and sensory function within normal limits, strength symmetrical, no focal deficits Psych-normal affect, normal mood Results & Data Results & Data Vital Signs (Past 12 Hours) Vital Signs Temp Pulse Resp BP Pulse Ox O2 Del Method 06/05/24 09:00 Room Air 06/05/24 07:24 36.8 C 63 15 126/64 93 Room Air Laboratory Results 06/03/24 05:47 06/03/24 05:47 PG Care Time/CCT Total # of Minutes Spent Total Time Spent with Patient: Total time spent is greater than 50% in coordination of care (as documented) at patient's floor/unit and/or counseling patient: Coding Level of Care Code 63894 SUB INP/OBS CARE 2/35MIN Diagnoses Ambulatory dysfunction R26.2 Hip arthritis M16.10 Lower extremity edema R60.0 Hypertension I10
--- NOTE | 2024-06-06 11:15 | Hospitalist Progress Note ---
Date of Service June 06, 2024 Assessment & Plan (1) Ambulatory dysfunction: Plan: Due to severe DJD of the left hip. Supportive care. Continue OT and PT while hospitalized (2) Hip arthritis: Plan: Left hip CT with severe osteoarthritis, no evidence of fracture. She will pursue left total hip arthroplasty at a later date. Supportive care. Pain control measures. (3) Lower extremity edema: Plan: chronic bilateral pitting edema due to chronic venous insufficiency. No evidence of CHF. (4) Hypertension: Plan: Stable. Continue diltiazem Plan Anticipate discharge to SNF facility when arrangements are finalized Admission and Anticipated Discharge Date Admission Date: May 31, 2024 Subjective Alert and oriented. No new problems. Awaiting SNF placement. Insurance denied [facility] placement as expected. Review of Systems 2 Review of Systems: General-alert and oriented x3, no fever, no chills HEENT-head atraumatic and normocephalic, pupils equal and reactive to light, extraocular muscles intact Neck-no lymphadenopathy or thyromegaly, trachea midline Chest-clear to auscultation. No rales, wheezing or rhonchi Cardiac-regular rate and rhythm, normal S1 and S2 Abdomen-normal bowel sounds, no hepatosplenomegaly Extremities-chronic left hip pain with ambulatory dysfunction Neuro-cranial nerves II through XII intact, motor and sensory function within normal limits, strength symmetrical, no focal deficits Psych-normal affect, normal mood Physical Exam 2 Physical Exam: General-alert and oriented x3, no fever, no chills HEENT-head atraumatic and normocephalic, pupils equal and reactive to light, extraocular muscles intact Neck-no lymphadenopathy or thyromegaly, trachea midline Chest-clear to auscultation. No rales, wheezing or rhonchi Cardiac-regular rate and rhythm, normal S1 and S2 Abdomen-normal bowel sounds, no hepatosplenomegaly Extremities-no cyanosis, clubbing, or edema Neuro-cranial nerves II through XII intact, motor and sensory function within normal limits, strength symmetrical, no focal deficits Psych-normal affect, normal mood Results & Data Results & Data Vital Signs (Past 12 Hours) Vital Signs Temp Pulse Resp BP Pulse Ox O2 Del Method 06/06/24 07:28 36.7 C 70 20 117/71 93 Room Air Laboratory Results 06/03/24 05:47 10/12/24 05:47 PG Care Time/CCT Total # of Minutes Spent Total Time Spent with Patient: Total time spent is greater than 50% in coordination of care (as documented) at patient's floor/unit and/or counseling patient: Coding Level of Care Code 20934 SUB INP/OBS CARE 2/35MIN Diagnoses Ambulatory dysfunction R26.2 Hip arthritis M16.10 Lower extremity edema R60.0 Hypertension I10
--- NOTE | 2024-06-07 11:43 | Hospitalist Progress Note ---
Date of Service June 07, 2024 Assessment & Plan (1) Ambulatory dysfunction: Plan: Due to severe DJD of the left hip. Supportive care. Continue OT and PT while hospitalized (2) Hip arthritis: Plan: Left hip CT with severe osteoarthritis, no evidence of fracture. She will pursue left total hip arthroplasty at a later date. Supportive care. Pain control measures. (3) Lower extremity edema: Plan: chronic bilateral pitting edema due to chronic venous insufficiency. No evidence of CHF. (4) Hypertension: Plan: Stable. Continue diltiazem Plan Anticipate discharge to SNF facility when arrangements are finalized Admission and Anticipated Discharge Date Admission Date: May 31, 2024 Subjective Alert and oriented. Vital signs stable. Afebrile. No new problems. Awaiting SNF placement. Review of Systems 2 Review of Systems: General-alert and oriented x3, no fever, no chills HEENT-head atraumatic and normocephalic, pupils equal and reactive to light, extraocular muscles intact Neck-no lymphadenopathy or thyromegaly, trachea midline Chest-clear to auscultation. No rales, wheezing or rhonchi Cardiac-regular rate and rhythm, normal S1 and S2 Abdomen-normal bowel sounds, no hepatosplenomegaly Extremities-chronic left hip pain with ambulatory dysfunction Neuro-cranial nerves II through XII intact, motor and sensory function within normal limits, strength symmetrical, no focal deficits Psych-normal affect, normal mood Physical Exam 2 Physical Exam: General-alert and oriented x3, no fever, no chills HEENT-head atraumatic and normocephalic, pupils equal and reactive to light, extraocular muscles intact Neck-no lymphadenopathy or thyromegaly, trachea midline Chest-clear to auscultation. No rales, wheezing or rhonchi Cardiac-regular rate and rhythm, normal S1 and S2 Abdomen-normal bowel sounds, no hepatosplenomegaly Extremities-no cyanosis, clubbing, or edema Neuro-cranial nerves II through XII intact, motor and sensory function within normal limits, strength symmetrical, no focal deficits Psych-normal affect, normal mood Results & Data Results & Data Vital Signs (Past 12 Hours) Vital Signs Temp Pulse Resp BP Pulse Ox O2 Del Method 06/07/24 08:05 Room Air 06/07/24 07:19 36.5 C 64 16 132/79 92 Room Air Laboratory Results 06/03/24 05:47 06/03/24 05:47 PG Care Time/CCT Total # of Minutes Spent Total Time Spent with Patient: Total time spent is greater than 50% in coordination of care (as documented) at patient's floor/unit and/or counseling patient: Coding Level of Care Code 54274 SUB INP/OBS CARE 2/35MIN Diagnoses Ambulatory dysfunction R26.2 Hip arthritis M16.10 Lower extremity edema R60.0 Hypertension I10
[2024-06-08 07:41] VITALS: BP 131/81; RESP 18; TEMP 97.7; O2SAT 95
--- NOTE | 2024-06-08 10:10 | Discharge Summary ---
Discharge Summary Date of Service June 08, 2024 Principal Dx & Hospital Course #1 = Principal Diagnosis (1) Ambulatory dysfunction: Due to severe DJD of the left hip. Supportive care. Continue OT and PT while hospitalized (2) Hip arthritis: Left hip CT with severe osteoarthritis, no evidence of fracture. She will pursue left total hip arthroplasty at a later date. Supportive care. Pain control measures. (3) Lower extremity edema: chronic bilateral pitting edema due to chronic venous insufficiency. No evidence of CHF. (4) Hypertension: Stable. Continue diltiazem Plan Discharge to Center care today, June 08 Admission HPI Per Admitting Provider Sandra is a 79-year-old female with PMH of hypercholesteremia, HTN, vitamin D deficiency, urinary incontinence, right hip arthritis, and greater trochanteric pain syndrome. She presented worsening pain in the right hip x 4 days, and inability to bear weight on 05/31. Patient lives alone, and family is concerned regarding recurrent unwitnessed falls, which have been increasing in frequency. Patient's [id number] (Destiney) is at the bedside and provides additional history. Patient follows with Dr. Nolasco (ortho), and has been in discussions regarding a left total hip replacement. Patient reports that the pain in her left hip is progressively getting worse. She characterizes it as a "sharp", intermittent pain like a "hot poker", followed by dull/achy pain. Radiation down the left leg. She is not taking any pain medicine at home for this and generally tries to avoid pain medications. Patient is exacerbated when she bears weight on the leg; worse with movements. Patient fell twice last week. She is unable to get up on her own when she falls, but can sometimes crawl to the phone for help; family recently was told Mony in all rooms in her house. She moves with a walker at baseline. Patient took her regular morning medications today; she manages her own medications at home. She was recently told to stop taking triamterenehydrochlorothiazide due to her "kidney numbers". Since then, she does note that she has had increased swelling in her legs. Patient reports that she has had significant balance issues over the last few weeks. She no longer goes outside, or drives anymore. She is largely unable to get up on her own, per family. Patient is hypertensive 163/92 at time of admission; vitals otherwise stable. ED course: Toradol 10 mg IV Acetaminophen 1000 mg IV Lidocaine patch ROS: Patient endorses Patient denies Per nursing staff, patient was a 2+ assist and was unable to bear any weight on her leg. Discharge Exam General-alert and oriented x3, no fever, no chills HEENT-head atraumatic and normocephalic, pupils equal and reactive to light, extraocular muscles intact Neck-no lymphadenopathy or thyromegaly, trachea midline Chest-clear to auscultation. No rales, wheezing or rhonchi Cardiac-regular rate and rhythm, normal S1 and S2 Abdomen-normal bowel sounds, no hepatosplenomegaly Extremities-no cyanosis, clubbing, or edema Neuro-cranial nerves II through XII intact, motor and sensory function within normal limits, strength symmetrical, no focal deficits Psych-normal affect, normal mood Discharge Plan Discharge Items Patient Disposition: Transfer Long-Term Fac Reason For Visit: AMBULATORY DYSFUNCTION Discharge Diagnosis: Degenerative arthritis of the left hip, ambulatory dysfunction Activity: Resume your previous activity Non-emergency contact: Primary Care Provider Call non-emergency contact if: your symptoms worsen Follow-up/Referrals: Ely Bain MD [Primary Care Provider] - Diet: Regular Addtl Attending Provider Instructions: See primary care provider soon as possible after discharge from Center care Pending Studies at Discharge: No Stand-Alone Forms: My [facility] Skilled Items Patient informed of condition?: Yes DNR: No Discharge Level of Care: Skilled Communicable Disease: No Discharge Prognosis: Stable Lines: None Urinary Catheter: No Medications and DC Order Prescriptions: New tramadol 50 mg Tablet 50 mg PO Q6H PRN (Reason: pain) Qty: 20 0RF lidocaine 5 % Adhesive Patch,Medicated 1 patch transdermal QAM Qty: 5 0RF diclofenac sodium [Voltaren Arthritis Pain] 1 % Gel 2 g EXT QID Qty: 30 0RF Continued ergocalciferol (vitamin D2) 1,250 mcg (50,000 unit) capsule 50,000 unit PO WEEKLY Qty: 12 2RF triamterene-hydrochlorothiazid 37.5-25 mg capsule 1 cap PO DAILY Qty: 90 3RF rosuvastatin 10 mg tablet 10 mg PO DAILY Qty: 90 3RF oxybutynin chloride 15 mg tablet extended release 24hr 15 mg PO DAILY Qty: 90 3RF diltiazem HCl 240 mg capsule,extended release 24 hr 240 mg PO DAILY Qty: 90 3RF celecoxib [Celebrex] 100 mg capsule 100 mg PO BID PRN (Reason: Other) Rx Instructions: Filled 05/17 30 day supply PRN take 1 tab twice daily for 2 weeks, then as needed after that. Discharge Orders: Discharge Order (Routine); Ordered 06/08/24 Ordered By: Kushal Goetz Admission Data Admit Date/Time: 05/31/24 18:39 Attending Provider: Kushal Goetz Admit Provider: Minor Acosta Primary Care Provider: Ely Bain Other Providers: Mau Vidal; Minor Acosta; [facility]; [facility] Consultations 05/31/24 17:36 ED Decision to Admit Stat 05/31/24 20:12 Consult Orthopedic Surgery Routine Diagnostic Imagining Performed 05/31/24 14:36 US venous doppler LE LT Stat 05/31/24 14:52 CT hip LT wo con Stat CT lumbar spine wo con Stat Pending Results Patient Have Any Pending Studies at Discharge: No Discharge Instructions Given to Patient (Per Discharging Provider) See primary care provider soon as possible after discharge from Center care Total Time Total Time Spent Total Time Spent (In Minutes): 45 minutes Coding Level of Care Code 78650 INP/OBS DISCH >30 MIN Diagnoses Ambulatory dysfunction R26.2 Hip arthritis M16.10 Lower extremity edema R60.0 Hypertension I10
[2024-06-08 11:41] VITALS: PULSE 80
== END 2024-06-08 13:13 | DRG 554 ==
LOC: ED 13:38 → 3N 18:39 → SUATTDRO 18:39 → 3N 06-01 02:45

== ENCOUNTER 2024-07-08 15:16 | Inpatient (IN) ==
--- NOTE | 2024-07-08 16:00 | Emergency Department Note ---
Impression & Plan COVID-19 ADMIT ED Provider Note HPI: History obtained from patient. The patient is a 79-year-old female who presents the emergency department with chief complaint of generalized weakness, lower extremity edema, and urinary urgency. Patient states she has had the symptoms for the past several days. Patient states she is also had a slight cough. On arrival here to the ER the patient is mildly hypertensive but otherwise hemodynamically stable, she appears to be in no acute distress. Patient states that she has had some pain more increasingly in the left hip with ambulation over the past several days. She notes she does have a history of osteoarthritis and has an upcoming hip replacement scheduled in July. Otherwise patient denies any focal complaint of pain on arrival. ROS: - Per HPI Differential Diagnosis: Acute CHF exacerbation, pulmonary edema, pneumonia, urinary tract infection, sepsis, viral infection/COVID-19/influenza A, amongst other potential pathologies. *Outpatient medications and allergy history reviewed. PE: General: Alert HEENT: Normocephalic, trachea midline Eyes: Extraocular eye movement is intact, no scleral erythema Pulmonary: Clear to auscultation bilaterally, no wheezing Cardio: Regular rate and rhythm GI: Abdomen is soft to palpation : No suprapubic tenderness MSK: No evidence of trauma or malformation of the extremities, mild bilateral lower extremity edema Skin: No evidence of rash Neuro: Alert, no focal deficits Psychiatric: Cooperative INDEPENDENT INTERPRETATIONS: environmental monitoring technician: (As interpreted by myself): - An order was placed for continuous cardiac monitoring - Patient was noted to be in sinus rhythm with a rate of 85 EKG: (As interpreted by myself): Rate: 82 Rhythm: Normal sinus rhythm Intervals: Within normal limits ST changes: No ST elevation Time: 1522 Chest x-ray: (As interpreted by myself): No focal infiltrate Medical Decision Making: IV was established and lab work obtained, patient was placed on environmental monitoring technician. Lab work shows no leukocytosis, hemoglobin is normal, platelet count is normal, CMP does not show any evidence of any critical findings. Troponin is negative, BNP is mildly elevated at 181, chest x-ray does not show any evidence of acute disease per my interpretation. Urinalysis was obtained and shows trace ketones but no evidence of infection or blood, viral panel testing was obtained and the patient is positive for COVID-19. I do suspect this is the source of her symptoms. In regards to the patient's left hip pain, the patient's daughter at the bedside states that the patient is having difficulty ambulating to the point where she cannot even pivot, she is requesting admission for placement to a physical therapy facility. X-ray imaging of the hip was therefore obtained and does show evidence of severe osteoarthritis of the left hip. Case management was consulted and it was determined that it would not be possible to place the patient directly into a rehabilitation facility and therefore admission would be required until this could be facilitated. Case was then discussed [facility] and the patient was placed for admission in stable condition to the service of Dr. Fung. Consultants/Discussions held with other healthcare providers: -Hospitalist, Dr. Fung Disposition discussion held by myself with: -Patient and patient's daughter at the bedside Diagnosis: 1. COVID-19 infection, acute 2. Generalized weakness, acute 3. Ambulatory dysfunction, acute on chronic 4. Osteoarthritis of the left hip Disposition: Admission Montrell Finney DO Emergency Medicine Past Med/Surg History Problem List (Updated 07/08/24 @ 20:07 by Montrell Finney DO) COVID-19 (Acute) Encounter for pre-operative examination Greater trochanteric pain syndrome Vitamin D deficiency (Chronic) Medical History Impaired fasting glucose HgbA1C 05/09/24: 5.8% Urinary incontinence Hx of colonic polyps Paresthesia of right foot Lower extremity edema Ambulatory dysfunction Uses walker or wheelchair prn Hip arthritis Hypertension Hyperlipidemia Surgical History Hx of gynecological procedure Rectocele repair Hx of right cataract extraction History of colonoscopy History of left cataract extraction History of bilateral tubal ligation History of cholecystectomy Family History Brother Prostate cancer Other No family history of adverse response to anesthesia Denies family history of Ovarian cancer Myocardial infarction Breast cancer Colorectal cancer Social History Smoking Status: Former smoker Tobacco Type: Cigarettes Age Started Using Tobacco: 13; Age Quit Using Tobacco: 64; packs per day: 1.25; Second Hand Exposure: Yes (hx growing up); Do You Dip or Chew Tobacco: No; Hx Alcohol Use: No Hx Substance Use: No Preferred Language: Yi Communication Ability: Effective Visual Impairment: No Limitations Hearing Ability: Use of Hearing Aid Parking Meter Attendant Required: No Beliefs That Will Affect Care: None marital status: Current Living Situation: Alone current 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 status: retired 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, [employer] Feels Safe at Home: Yes Childhood Exposure to Second-Hand Smoke: Yes Diet: low salt Diet Comment: watches her salt intake, does this by choice caffeine: Yes during the past year weight has: remained stable Dental Care, Regularly: No Physical Activity Frequency: Daily Physical Activity Frequency Comment: walking about 30 min a day Seatbelt Use: always Sunscreen Use: No Assistive Devices: Denture - Upper, Denture - Lower, Glasses, Hearing Aid - Bilateral, Walker and Wheelchair Allergies Allergies Allergy/AdvReac Type Severity Reaction Status Date / Time enalapril AdvReac Unknown COUGH Verified 07/08/24 19:02 Home Meds Home Medications Medication Instructions Recorded Confirmed celecoxib 100 mg capsule (Celebrex) 100 mg PO BID PRN Other 05/31/24 07/08/24 ergocalciferol (vitamin D2) 1,250 50,000 unit PO Q7D 07/03/24 07/08/24 mcg (50,000 unit) capsule oxybutynin chloride 15 mg 15 mg PO QAM 07/03/24 07/08/24 tablet,extended release 24 hr rosuvastatin 10 mg tablet 10 mg PO HS 07/03/24 07/08/24 triamterene 37.5 1 cap PO QAM 07/03/24 07/08/24 mg-hydrochlorothiazide 25 mg capsule diltiazem HCl 240 mg capsule,24 240 mg PO QAM 07/08/24 07/08/24 hr,extended release (Tiadylt ER) Previous Rx's Medication Instructions Recorded furosemide 20 mg tablet 20 mg PO DAILY 7 days #7 tabs 07/06/24 Results & Data (ED) Vital Signs Vital Signs - 24 hr 07/08/24 15:15 07/08/24 15:30 07/08/24 15:50 Temperature 36.6 C 36.6 C Temperature Source Oral Oral Pulse Rate 88 75 Pulse Rate [Apical] 82 Pulse Rate from SpO2 Sensor Pulse Strength Normal Respiratory Rate 22 18 Respiratory Effort / Characteristics Non-Labored Spontaneous Non-Labored Spontaneous Respiratory Depth Normal Normal Respiratory Pattern Regular Regular Blood Pressure 151/90 H Blood Pressure [Right Arm] 164/89 H Blood Pressure Mean 110 Blood Pressure Mean [Right Arm] 114 Pulse Oximetry 94 94 Oxygen Delivery Method Room Air Room Air Sepsis Recent Fever Within 48 Hours No Sepsis New/Unexplained Change in Mental Status No Sepsis Action Taken by Nursing No Action Required 07/08/24 16:15 07/08/24 17:28 07/08/24 18:39 Temperature Temperature Source Pulse Rate 82 Pulse Rate [Apical] 77 Pulse Rate from SpO2 Sensor Pulse Strength Respiratory Rate 18 Respiratory Effort / Characteristics Non-Labored Respiratory Depth Normal Respiratory Pattern Regular Blood Pressure Blood Pressure [Right Arm] 153/76 H Blood Pressure Mean Blood Pressure Mean [Right Arm] 101 Pulse Oximetry 93 94 Oxygen Delivery Method Room Air Room Air Sepsis Recent Fever Within 48 Hours Sepsis New/Unexplained Change in Mental Status Sepsis Action Taken by Nursing 07/08/24 19:33 Temperature Temperature Source Pulse Rate 82 Pulse Rate [Apical] Pulse Rate from SpO2 Sensor 81 Pulse Strength Respiratory Rate 24 Respiratory Effort / Characteristics Respiratory Depth Respiratory Pattern Blood Pressure 157/77 H Blood Pressure [Right Arm] Blood Pressure Mean 103 Blood Pressure Mean [Right Arm] Pulse Oximetry 92 Oxygen Delivery Method Sepsis Recent Fever Within 48 Hours Sepsis New/Unexplained Change in Mental Status Sepsis Action Taken by Nursing Laboratory Data 07/08/24 15:30 07/08/24 15:30 Lab Results 07/08/24 07/08/24 07/08/24 Range/Units 15:30 17:30 Unknown WBC 5.54 (4.8-10.8) K/ul RBC 4.45 (4.20-5.40) M/uL Hgb 13.5 (12.0-16.0) g/dl Hct 40.9 (37.0-47.0) % MCV 91.9 (80.0-100.0) fL MCH 30.3 (25.0-34.0) pg MCHC 33.0 (32.0-36.0) g/dL RDW Std Deviation 44.4 (36.4-46.3) fL RDW Coeff of Mitchell 13.2 (11.5-14.5) % Plt Count 234 (130-400) K/uL MPV 9.9 (9.4-12.4) fL Immature Gran % (Auto) 1.3 % Neut % (Auto) 75.3 % Lymph % (Auto) 5.6 % Wilkes % (Auto) 15.9 % Eos % (Auto) 1.4 % Baso % (Auto) 0.5 % Neut # (Auto) 4.17 (1.40-6.50) K/uL Lymph # (Auto) 0.31 L (1.20-3.40) K/uL Wilkes # (Auto) 0.88 H (0.11-0.59) K/uL Eos # (Auto) 0.08 (0.00-0.50) K/uL Baso # (Auto) 0.03 (0.00-0.20) K/uL Immature Gran # (Auto) 0.07 (0.01-0.20) K/uL PT 10.7 (9.0-12.0) Seconds INR 1.0 (0.9-1.1) Sodium 139 (136-145) mmol/L Potassium 3.6 (3.5-5.1) mmol/L Chloride 103 (98-107) mmol/L Carbon Dioxide 28 (21-32) mmol/L Anion Gap 8 (3-11) BUN 15 (6-23) mg/dl Creatinine 1.08 (0.6-1.2) mg/dl Est Cr Clr Drug Dosing 45.0 ml/min eGFR 52.25 BUN/Creatinine Ratio 13.9 (10-20) Glucose 89 (70-99(Fasting)) mg/dl Calcium 9.6 (8.6-10.3) mg/dl Total Bilirubin 0.5 (0.2-1.0) mg/dl AST 22 (13-39) U/L ALT 16 (7-52) U/L Alkaline Phosphatase 69 (34-104) U/L Troponin I High Sens 9.3 (0-14) pg/ml B-Natriuretic Peptide 181 H (0-100) pg/ml Total Protein 6.2 (6.0-8.3) gm/dl Albumin 3.8 (3.4-5.0) gm/dl Globulin 2.4 L (2.5-4.0) gm/dl Albumin/Globulin Ratio 1.6 (0.9-2) Lipase 25 (11-82) U/L Urine Color Yellow Urine Appearance Clear (Clear) Urine pH 7.0 (4.5-7.5) Ur Specific [place] 1.012 (1.000-1.030) Urine Protein Negative (Negative) Urine Glucose (UA) Negative (Negative) Urine Ketones Trace H (Negative) Urine Blood Negative (Negative) Urine Nitrite Negative (Negative) Urine Bilirubin Negative (Negative) Urine Urobilinogen Negative (Negative) Ur Leukocyte Esterase Negative (Negative) Adenovirus (PCR) Not Detected (NotDetected) B. pertussis DNA (PCR) Not Detected (NotDetected) B.parapertussis DNA PCR Not Detected (NotDetected) C. pneumoniae DNA (PCR) Not Detected (NotDetected) Coronavirus OC43 (PCR) Not Detected (NotDetected) Coronavirus HKU1 (PCR) Not Detected (NotDetected) Coronavirus 229E (PCR) Not Detected (NotDetected) SARS-CoV-2 (PCR) DETECTED A (NotDetected) Coronavirus NL63 (PCR) Not Detected (NotDetected) Human Metapneumovir PCR Not Detected (NotDetected) Influenza Type A (PCR) Not Detected (NotDetected) Influenza Type B (PCR) Not Detected (NotDetected) M. pneumoniae (PCR) Not Detected (NotDetected) Parainfluenza 1 (PCR) Not Detected (NotDetected) Parainfluenza 2 (PCR) Not Detected (NotDetected) Parainfluenza 3 (PCR) Not Detected (NotDetected) Parainfluenza 4 (PCR) Not Detected (NotDetected) RSV (PCR) Not Detected (NotDetected) Entero/Rhino (PCR) Not Detected (NotDetected) Imaging Data Radiologist's Impression: Chest X-Ray 07/08/24 16:00 EXAM: X-ray chest one-view portable CLINICAL HISTORY: Cough, left upper chest pain PRIORS: None TECHNIQUE: Portable upright AP view chest FINDINGS: The chest is well-expanded. Moderate atherosclerotic disease of the aortic knob. No airspace consolidation, effusion or congestive changes. Heart size is normal. No pneumothorax. Trachea is patent. Osseous structures demonstrate no acute abnormality. No radiopaque foreign body. IMPRESSION: No plain film evidence of an acute cardiopulmonary process. Electronically signed by Mary Anders 07-08-2024 4:47 PM Hip X-Ray 07/08/24 18:00 EXAMINATION: X-ray hip left minimum 2 view CLINICAL HISTORY: Left hip pain PRIORS: None TECHNIQUE: 2 views left hip FINDINGS: Large body habitus diminishes image quality. Second view submitted is nondiagnostic. Single view shows [id number] degenerative change of the left hip, superior aspect. Uncovering of the femoral head by the acetabulum is present and suggests dysplasia in the proper clinical setting. No acute displaced fracture or dislocation. Obturator ring unremarkable. No soft tissue swelling. IMPRESSION: [id number] degenerative change of the left hip. Orthopedic surgery consultation could be considered if appropriate. Electronically signed by Mary Anders 07-08-2024 6:32 PM Discharge Plan Visit Data Chief Complaint: Swelling/Edema to Extremity Stated Complaint: Swelling/Edema to Extremity ED Provider: Montrell Finney Discharge Problem: COVID-19 Forms Stand Alone Forms: [facility] Prescriptions Prescriptions: No Action furosemide 20 mg tablet 20 mg PO DAILY 7 Days Qty: 7 0RF oxybutynin chloride 15 mg tablet extended release 24hr 15 mg PO QAM triamterene-hydrochlorothiazid 37.5-25 mg capsule 1 cap PO QAM ergocalciferol (vitamin D2) 1,250 mcg (50,000 unit) capsule 50,000 unit PO Q7D rosuvastatin 10 mg tablet 10 mg PO HS diltiazem HCl [Tiadylt ER] 240 mg capsule,extended release 24 hr 240 mg PO QAM celecoxib [Celebrex] 100 mg capsule 100 mg PO BID PRN (Reason: Other) Rx Instructions: Filled 05/17 30 day supply PRN take 1 tab twice daily for 2 weeks, then as needed after that. Referrals Referrals: Ely Bain MD [Primary Care Provider] -
[2024-07-08 16:15] LABS: Basophils # (auto) 0.03 K/uL (0.00-0.20); Basophils % (auto) 0.5 %; Eosinophils # (auto) 0.08 K/uL (0.00-0.50); Eosinophils % (auto) 1.4 %; Hematocrit (blood only) 40.9 % (37.0-47.0); Hemoglobin 13.5 g/dl (12.0-16.0); Immature Granulocytes # (auto) 0.07 K/uL (0.01-0.20); Immature Granulocytes % (auto) 1.3 %; Lymphocytes # (auto) 0.31 K/uL (1.20-3.40); Lymphocytes % (auto) 5.6 %; Mean Corpuscular Hemoglobin 30.3 pg (25.0-34.0); Mean Corpuscular Volume 91.9 fL (80.0-100.0); Mean Platelet Volume 9.9 fL (9.4-12.4); Monocytes # (auto) 0.88 K/uL (0.11-0.59); Monocytes % (auto) 15.9 %; Neutrophils # (auto) 4.17 K/uL (1.40-6.50); Neutrophils % (auto) 75.3 %; Platelet Count 234 K/uL (130-400); RDW Coefficient of Variation 13.2 % (11.5-14.5); RDW Standard Deviation 44.4 fL (36.4-46.3); Red Blood Count 4.45 M/uL (4.20-5.40); White Blood Count 5.54 K/ul (4.8-10.8)
[2024-07-08 16:30] LABS: Albumin Globulin Ratio 1.6 (0.9-2); Albumin Level 3.8 gm/dl (3.4-5.0); BUN Creatinine Ratio 13.9 (10-20); Bilirubin,Total 0.5 mg/dl (0.2-1.0); Calcium 9.6 mg/dl (8.6-10.3); Globulin 2.4 gm/dl (2.5-4.0); Potassium 3.6 mmol/L (3.5-5.1); Total Protein 6.2 gm/dl (6.0-8.3)
[2024-07-08 16:37] LABS: Troponin I High Sensitivity 9.3 pg/ml (0-14)
[2024-07-08 16:40] LABS: Prothrombin Time 10.7 Seconds (9.0-12.0)
--- NOTE | 2024-07-08 16:48 | XRay Report ---
EXAM: X-ray chest one-view portable CLINICAL HISTORY: Cough, left upper chest pain PRIORS: None TECHNIQUE: Portable upright AP view chest FINDINGS: The chest is well-expanded. Moderate atherosclerotic disease of the aortic knob. No airspace consolidation, effusion or congestive changes. Heart size is normal. No pneumothorax. Trachea is patent. Osseous structures demonstrate no acute abnormality. No radiopaque foreign body. IMPRESSION: No plain film evidence of an acute cardiopulmonary process. Electronically signed by Mary Anders 07-08-2024 4:47 PM
[2024-07-08 17:04] LABS: Adenovirus PCR Not Detected (NotDetected); Bordetella parapertussis PCR Not Detected (NotDetected); Bordetella pertussis PCR Not Detected (NotDetected); Chlamydia pneumoniae PCR Not Detected (NotDetected); Coronavirus 229E PCR Not Detected (NotDetected); Coronavirus CoV-2 (COVID19)PCR DETECTED (NotDetected); Coronavirus HKU1 PCR Not Detected (NotDetected); Coronavirus NL63 PCR Not Detected (NotDetected); Coronavirus OC43PCR Not Detected (NotDetected); Human Metapneumovirus PCR Not Detected (NotDetected); Influenza A PCR Not Detected (NotDetected); Influenza B PCR Not Detected (NotDetected); Mycoplasma pneumoniae PCR Not Detected (NotDetected); Parainfluenza Virus 1 PCR Not Detected (NotDetected); Parainfluenza Virus 2 PCR Not Detected (NotDetected); Parainfluenza Virus 3 PCR Not Detected (NotDetected); Parainfluenza Virus 4 PCR Not Detected (NotDetected); Respiratory Syncytial VirusPCR Not Detected (NotDetected); Rhinovirus/Enterovirus PCR Not Detected (NotDetected)
[2024-07-08 17:40] LABS: Appearance Urine Clear (Clear); Bilirubin Urine Negative (Negative); Blood Urine Negative (Negative); Color Urine Yellow; Glucose Urine UA Negative (Negative); Ketones Urine Trace (Negative); Leukocyte Esterase Urine Negative (Negative); Nitrite Urine Negative (Negative); Protein Urine Negative (Negative); Specific Gravity Urine 1.012 (1.000-1.030); Urobilinogen Urine Negative (Negative)
[2024-07-08] MEDS ORDERED: CELECOXIB 100 MG CAP PO PRN (18:22)
[2024-07-08] MEDS ORDERED: ONDANSETRON INJ 2 MG/ML 2 ML VIAL IV PRN (18:25)
--- NOTE | 2024-07-08 18:29 | History & Physical Report ---
Date of Service July 08, 2024 Assessment & Plan (1) Ambulatory dysfunction: Plan: Complicated to hip arthritis (left), and paresthesias of foot; uses assistive device at baseline - Admit - Worsening lower extremity edema with bilaterally - Furosemide 20 mg daily at home - ON HOLD currently but repeat BMP if diuresing - Pending placement for rehabilitation w/ PT (2) Lower extremity edema: Plan: Secondary to #1 - Causing discomfort - Holding diuresis for now - Plan to repeat BMP in AM while diuresing + place pure wick as pt has difficulty ambulating + pain and has not been drinking so she does not have to get up to use the restroom - Consider echo 2/2 never having one completed before (3) COVID-19: Plan: COVID 19 diagnosed on admission Symptomatic with mild cough - CBC WNL - Not following in AM unless reason to do so - CXR without acute cardiopulmonary process - No O2 at baseline, not requiring O2- will place order for O2 as needed but attempt to wean off as tolerated IF needed (4) Greater trochanteric pain syndrome: Plan: Worsening and ongoing ambulatory dysfunction, secondary to left hip OA - Patient to have hip replacement in July - PT order placed Plan Urinary incontinence- oxybutynin chloride 15 mg p.o. a.m. No longer on diltiazem per patient and family member Dispo: Admit - discussion of going to [facility] Diet: Heart healthy VTE prophylaxis: Lovenox SQ Code: Full Admission and Anticipated Discharge Date Admission Date: 07/08/2024 History of Present Illness Chief Complaint: Lower extremity edema Primary Care Provider: Ely Bain MD Patient is a 79-year-old female presenting for worsening lower extremity edema as well as mild cough. Vpvuaxds-nr-sga is concerned for patient's safety if she hears to return home, secondary to ambulatory dysfunction. ED course: CBC grossly WNL, PT/INR WNL, CMP WNL; troponin 9.3; BNP 181; lipase 25; UA with tr [place]olina ketones only; positive for COVID-19; CXR no plain film evidence of acute cardiopulmonary process; EKG NSR rate around 80. Patient is a 79-year-old female with PMHx of osteoarthritis of the left hip, ambulatory dysfunction, HTN, and greater trochanteric pain syndrome, who is presenting with her daughter after worsening lower extremity edema x 3 days. Went to PCP and was prescribed 7-day dose of Lasix, did not take this complete course yet and just felt as though the edema was worsening. Bxiwtzyn-fe-wuk also feels as though patient is unable to safely return home secondary to her ambulatory dysfunction, and severe left hip pain secondary to OA. Patient is scheduled for a left hip replacement in July. Otherwise complaining of mild cough w/o SOB found to be COVID-positive. Denying chest pain, rhinorrhea, sore throat, abdominal pain, N/V/D/C, numbness/tingling, dysuria, or LUTS. Patient took all a.m. medications. Please see Dr. Fung's attestation for adjustments/additions to treatment plan. Allergies Allergy/AdvReac Type Severity Reaction Status Date / Time enalapril AdvReac Unknown COUGH Verified 07/08/24 19:02 Home Medications Medication Instructions Recorded Confirmed Type celecoxib 100 mg capsule (Celebrex) 100 mg PO BID PRN Other 05/31/24 07/08/24 History ergocalciferol (vitamin D2) 1,250 50,000 unit PO Q7D 07/03/24 07/08/24 History mcg (50,000 unit) capsule oxybutynin chloride 15 mg 15 mg PO QAM 07/03/24 07/08/24 History tablet,extended release 24 hr rosuvastatin 10 mg tablet 10 mg PO HS 07/03/24 07/08/24 History triamterene 37.5 1 cap PO QAM 07/03/24 07/08/24 History mg-hydrochlorothiazide 25 mg capsule furosemide 20 mg tablet 20 mg PO DAILY 7 days #7 tabs 07/06/24 07/08/24 Rx diltiazem HCl 240 mg capsule,24 240 mg PO QAM 07/08/24 07/08/24 History hr,extended release (Tiadylt ER) Past Med/Surg History Problem List (Updated 07/08/24 @ 20:07 by Montrell Finney DO) COVID-19 (Acute) Encounter for pre-operative examination Greater trochanteric pain syndrome Vitamin D deficiency (Chronic) Medical History Impaired fasting glucose HgbA1C 05/09/24: 5.8% Urinary incontinence Hx of colonic polyps Paresthesia of right foot Lower extremity edema Ambulatory dysfunction Uses walker or wheelchair prn Hip arthritis Hypertension Hyperlipidemia Surgical History Hx of gynecological procedure Rectocele repair Hx of right cataract extraction History of colonoscopy History of left cataract extraction History of bilateral tubal ligation History of cholecystectomy Family History Brother Prostate cancer Other No family history of adverse response to anesthesia Denies family history of Ovarian cancer Myocardial infarction Breast cancer Colorectal cancer Social History Smoking Status: Never smoker Tobacco Type: Cigarettes Age Started Using Tobacco: 13; Age Quit Using Tobacco: 64; packs per day: 1.25; Second Hand Exposure: Yes (hx growing up); Do You Dip or Chew Tobacco: No; Hx Alcohol Use: No Hx Substance Use: No Preferred Language: Slovenian Communication Ability: Effective Visual Impairment: No Limitations Hearing Ability: Use of Hearing Aid Sec Accountant Required: No Beliefs That Will Affect Care: None marital status: Current Living Situation: Alone current 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 status: 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, [employer] Feels Safe at Home: Yes Safety Concerns: Feels Safe At This Time Childhood Exposure to Second-Hand Smoke: Yes Diet: low salt Diet Comment: watches her salt intake, does this by choice caffeine: Yes during the past year weight has: remained stable Dental Care, Regularly: No Physical Activity Frequency: Daily Physical Activity Frequency Comment: walking about 30 min a day Seatbelt Use: always Sunscreen Use: No Assistive Devices: Walker Review of Systems Review of Systems: All systems reviewed & are unremarkable except as noted in Subjective Physical Exam Physical Exam: General: No acute distress Skin: Warm and dry Head: Normocephalic, atraumatic Eyes: PERRL, conjunctivae clear, sclera non-icteric; EOM intact ENT: External ear and ear canal without swelling; nose atraumatic; good dentition, lips dry Neck: Supple, no LAD Cardio: RRR, no M/G/R, S1 and S2 normal Resp: No respiratory distress, Lungs CTA in all lobes bilaterally, no wheezes, rales, or rhonchi Abdomen: Soft, symmetric, nontender; no distention; No masses or hepatosplenomegaly MSK: No deformities; sensation normal to UE/LE; pulses palpable and equal; 1+ pitting edema bilateral lower extremities. Neuro: Awake, alert; CN intact Psych: Appropriate mood and affect; good judgement and insight. [id number]-[id number] present in room at time of visit. Results & Data Results & Data Vital Signs (Past 12 Hours) Vital Signs Temp Pulse Pulse Resp BP BP Pulse Ox 07/08/24 17:28 77 18 153/76 H 94 07/08/24 16:15 93 07/08/24 15:50 75 07/08/24 15:30 36.6 C 82 18 164/89 H 94 07/08/24 15:15 36.6 C 88 22 151/90 H 94 O2 Del Method 07/08/24 17:28 Room Air 07/08/24 16:15 Room Air 07/08/24 15:50 07/08/24 15:30 Room Air 07/08/24 15:15 Room Air Laboratory Results 07/08/24 07/08/24 07/08/24 Unknown 17:30 15:30 WBC 5.54 RBC 4.45 Hgb 13.5 Hct 40.9 MCV 91.9 MCH 30.3 MCHC 33.0 RDW Std Deviation 44.4 RDW Coeff of Mitchell 13.2 Plt Count 234 MPV 9.9 Immature Gran % (Auto) 1.3 Neut % (Auto) 75.3 Lymph % (Auto) 5.6 [place] % (Auto) 15.9 Eos % (Auto) 1.4 Baso % (Auto) 0.5 Neut # (Auto) 4.17 Lymph # (Auto) 0.31 L [place] # (Auto) 0.88 H Eos # (Auto) 0.08 Baso # (Auto) 0.03 Immature Gran # (Auto) 0.07 PT 10.7 INR 1.0 Sodium 139 Potassium 3.6 Chloride 103 Carbon Dioxide 28 Anion Gap 8 BUN 15 Creatinine 1.08 Est Cr Clr Drug Dosing 45.0 eGFR 52.25 BUN/Creatinine Ratio 13.9 Glucose 89 Calcium 9.6 Total Bilirubin 0.5 AST 22 ALT 16 Alkaline Phosphatase 69 Troponin I High Sens 9.3 B-Natriuretic Peptide 181 H Total Protein 6.2 Albumin 3.8 Globulin 2.4 L Albumin/Globulin Ratio 1.6 Lipase 25 Urine Color Yellow Urine Appearance Clear Urine pH 7.0 Ur Specific [place] 1.012 Urine Protein Negative Urine Glucose (UA) Negative Urine Ketones Trace H Urine Blood Negative Urine Nitrite Negative Urine Bilirubin Negative Urine Urobilinogen Negative Ur Leukocyte Esterase Negative Adenovirus (PCR) Not Detected B. pertussis DNA (PCR) Not Detected B.parapertussis DNA PCR Not Detected C. pneumoniae DNA (PCR) Not Detected Coronavirus OC43 (PCR) Not Detected Coronavirus HKU1 (PCR) Not Detected Coronavirus 229E (PCR) Not Detected SARS-CoV-2 (PCR) DETECTED A Coronavirus NL63 (PCR) Not Detected Human Metapneumovir PCR Not Detected Influenza Type A (PCR) Not Detected Influenza Type B (PCR) Not Detected M. pneumoniae (PCR) Not Detected Parainfluenza 1 (PCR) Not Detected Parainfluenza 2 (PCR) Not Detected Parainfluenza 3 (PCR) Not Detected Parainfluenza 4 (PCR) Not Detected RSV (PCR) Not Detected Entero/Rhino (PCR) Not Detected Diagnostic Findings Chest X-Ray 07/08/24 16:00 EXAM: X-ray chest one-view portable CLINICAL HISTORY: Cough, left upper chest pain PRIORS: None TECHNIQUE: Portable upright AP view chest FINDINGS: The chest is well-expanded. Moderate atherosclerotic disease of the aortic knob. No airspace consolidation, effusion or congestive changes. Heart size is normal. No pneumothorax. Trachea is patent. Osseous structures demonstrate no acute abnormality. No radiopaque foreign body. IMPRESSION: No plain film evidence of an acute cardiopulmonary process. Electronically signed by Mary Anders 07-08-2024 4:47 PM Code Status & VTE Plan Code Status Full Supervising Physician Co-Signing Physician Notes During face to face encounter, I obtained a history and physical exam, I discussed plan of care with patient. I discussed plan of care with SUNIL Xavier. I reviewed above note and agree with it except for the following: Patient will be admitted for COVID 19 and weakness. Will obtain PT/OT continue diuretics as noted above. PG Care Time/CCT Total # of Minutes Spent Total Time Spent with Patient: Total time spent is greater than 50% in coordination of care (as documented) at patient's floor/unit and/or counseling patient: Coding Level of Care Code 42880 INT INP/OBS CARE 2/55MIN Diagnoses Ambulatory dysfunction R26.2 Lower extremity edema R60.0 COVID-19 U07.1 Greater trochanteric pain syndrome M25.559 Time Spent (min) 60
--- NOTE | 2024-07-08 18:33 | XRay Report ---
EXAMINATION: X-ray hip left minimum 2 view CLINICAL HISTORY: Left hip pain PRIORS: None TECHNIQUE: 2 views left hip FINDINGS: Large body habitus diminishes image quality. Second view submitted is nondiagnostic. Single view shows [id number] degenerative change of the left hip, superior aspect. Uncovering of the femoral head by the acetabulum is present and suggests dysplasia in the proper clinical setting. No acute displaced fracture or dislocation. Obturator ring unremarkable. No soft tissue swelling. IMPRESSION: Sqzv-ky-oozn degenerative change of the left hip. Orthopedic surgery consultation could be considered if appropriate. Electronically signed by Mary Anders 07-08-2024 6:32 PM
[2024-07-08] MEDS ORDERED: LIDOCAINE 5% 1 PATCH TD PRN (20:59)
[2024-07-08] MEDS: ENOXAPARIN INJ 40 MG/0.4 ML SYR SQ SCH (22:20)
[2024-07-08 23:24] LABS: C Reactive Protein 0.63 mg/dl (0-0.5)
[2024-07-09 06:45] LABS: BUN Creatinine Ratio 15.6 (10-20); Calcium 8.6 mg/dl (8.6-10.3); Creatinine Clr Calc Pharmacy 53.2 ml/min; Potassium 3.6 mmol/L (3.5-5.1)
[2024-07-09] MEDS: OXYBUTYNIN CHLORIDE XL 5 MG TABCR PO SCH (07:32)
[2024-07-09] MEDS: ROSUVASTATIN CALCIUM 10 MG TAB PO SCH (07:33)
[2024-07-09] MEDS ORDERED: dilTIAZem HCL 240 MG CAPCR PO SCH (09:00)
--- NOTE | 2024-07-09 15:15 | Hospitalist Progress Note ---
Date of Service July 09, 2024 Assessment & Plan (1) Ambulatory dysfunction: Plan: [id number]-br-[id number] ambulatory dysfunction, utilizing walker at home and in [facility]. Patient is old at 79 years of age, obese with BMI 34.2 (height 160.0 cm; weight 87.543kg), and suffers from severe non-erosive osteoarthritis with apparent jlpl-np-lxxy disease in the left hip (as noted on 07/08/2024, 8:00pm left hip x- ray). Hence, in addition to ongoing PT/OT Service evaluations, patient awaits formal Orthopedic Surgery Service evaluation with Dr. Froylan Tomlinson in the 07/10/2024 am with tentative left hip replacement in July 2024. In the interim, patient awaits anticipated D/C to SNF for short-term rehab versus long- term care/placement, pending Case Management Service evaluation in the 07/10/2024 am. (2) Lower extremity edema: Plan: 1+ pitting pedal edema with extension to the bilateral lower shins, sparing the bilateral upper shins, knees, hips, thighs. No correlation of bilateral lower soto edema with the rest of patient's body (e.g., no pulmonary vascular congestion, no hepatojugular reflux with normal jugular venous pressure estimated to be 8 cm above the sternal angle of Jose Antonio, which is 5 cm above the level of the right atrium). Hence, I surmise that patient's bilateral pedal edema is chronic and due to venous insufficiency. Observe with no indication or reason to perform TTE at this time. (3) COVID-19: Plan: Incidental diagnosis of acute COVID infection with no signs or symptoms to suggest underlying acute COVID pneumonia, either by history or by physical exam. Patient's lungs remain clear to auscultation and percussion and O2 saturation ranges from 92% on room air (07/09/2024, 7:34am) to 97% on room air (07/09/2024, 3:15pm). Hence, patient does not warrant treatment with either dexamethasone or remdesivir. Continue contact/droplet precautions as of 07/09/2024. (4) Greater trochanteric pain syndrome: Plan: Worsening and ongoing ambulatory dysfunction, secondary to severe non-erosive osteoarthritis with apparent [id number]-st-ufgp disease in the left hip (as noted on 07/08/2024, 8:00pm left hip x-ray). - As stated in bullet #1 above, patient awaits formal Orthopedic Surgery Service evaluation with Dr. Froylan Tomlinson in the 07/10/2024 am with tentative left hip replacement in July 2024. In the interim, patient continues to undergo daily PT/OT Service evaluations with anticipated D/C to SNF for short-term rehab versus long-term care/placement, pending Case Management Service evaluation in the 07/10/2024 am. Plan Other secondary medical issues include: 1. Chronic urinary incontinence on oxybutynin chloride 15 mg PO qam at home. Subsequently, I discontinued this anti-muscarinic medication while patient remains in [facility] for the simple reason that this medication, while it may serve to mitigate patient's chronic urinary incontinence, and keep the patient's clothes and bedsheets dry, it does so at the expense of anti-cholinergic side effects, which includes dizziness and gait instability, followed by falls and/or fractures. For this reason, anti-cholinergic medications such as oxybutynin are contra-indicated in the elderly. cf., 2022 [place] [employer]' [place] Criteria for Potentially Inappropriate Medications in Older Adults. 2. DVT prophylaxis. D/C lovenox 40mg SQ q12 and start lovenox 40mg SQ daily on 07/09/2024, 4:10pm. Of note, patient reports no calf pain, leg swelling, or pleurisy to suggest either DVT or PE on 07/09/2024. 3. Chronic peripheral monocytosis with baseline M% range, 10.8% (09/30/2018, 9:10am) to 14.3% (11/13/2021, 7:36am). cf., M% 9.9% (07/04/2024, 1:30pm), M% 15.9% (07/08/2023, 3:30pm). Etiology of peripheral monocytosis remains unclear; in the older adult, acute viral infection/syndrome and malignancy (cf., leukemia, lymphoma, solid organ malignancy) are common causes of peripheral monocytosis. In this patient, acute peripheral monocytosis is probably due to acute COVID infection; on the other hand, chronic peripheral monocytosis is unexplained. I do not see any prior Heme-Onc Service workup of this patient's chronic peripheral monocytosis in reviewing this patient's medical record in [facility] database from 08/29/2018, 9:33am to 07/06/2024, 3:26pm. cf., screening colonoscopy (08/10/2023) with 5mm sessile polyp in transverse colon; 4mm sessile polyp in sigmoid colon; 8mm sessile polyp in rectum (as per [facility] Dr. Gatito Tran, who recommended NO repeat colonoscopy due to age). cf. screening colonoscopy (08/05/2022) with 10mm sessile polyp @ ascending colon; 5mm sessile polyp in transverse colon; 5mm sessile polyp in descending colon (as per [facility] Dr. Gatito Tran, who recommended repeat colonoscopy in 1 year due to suboptimal bowel prep). Subsequently, I will defer to patient's PCP Dr. Ely Bain ([address] [place] [id number]) for any outpatient Heme-Onc Service workup of this patient's chronic peripheral monocytosis. 4. Code status, FULL CODE @ home alone. ACLS as required. Condition of patient remains fair. I anticipate that this patient will remain in [facility] for the next 2 midnights, in order to determine/identify which SNF patient will be discharged to for short-term rehab or long-term care/placement. There are no acute medical issues as of 07/09/2024 that require workup/intervention with outpatient/elective left hip replacement tentatively scheduled for July 2024. Patient will follow up with her PCP Dr. Ely Bain ([address] [place] [id number]) within 3-5 days of hospital discharge. Admission and Anticipated Discharge Date Admission Date: July 08, 2024 Subjective "I feel a little better today (07/09/2024); breathing is fine (e.g., O2 saturation ranges from 92% on room air (07/09/2024, 7:34am) to 97% on room air (07/09/2024, 3:15pm) and no coughing or wheezing, but I still cannot walk right. I need help. I need my walker." cf., While this patient was diagnosed with acute COVID infection (NOT pneumonia) on admission date 07/08/2024, patient's real reason for being admitted to [facility] on 07/08/2024 was [id number] ambulatory dysfunction at patient's home, now walker-dependent. Hence, patient awaits PT/OT Service evaluations in the 06/23 am with anticipated D/C to SNF in the 07/10/2024 am or pm, pending Case Management Service evaluation in the 07/10/2024 am, as there are no acute medical issues warranting inpatient hospitalization/treatment on 07/09/2024. Review of Systems Review of Systems: Positive for generalized weakness, utilizing walker at home and in [facility] Tele bed #[id number] on 07/09/2024. Negative for antecedent/coincident anosmia, ageusia, hypogeusia, myalgias, arthralgias, rhinorrhea, otorrhea, conjunctivitis, sick contacts, fevers, chills, diaphoresis, cough, wheeze, sore throat, hemoptysis, SOB, SANDOVAL, chest pains, palpitations, pleurisy, nausea, vomiting, diarrhea, abdominal pain, pelvic pain, hematochezia, melena, hematuria, dysuria, frequency, urgency, headaches, dizziness, visual changes, hearing changes, falls, syncope, trauma, travel history, or food/drug ingestions novel/new. All other review of systems are reported as negative/normal on 07/09/2024. Physical Exam Physical Exam: General: comfortable, coherent, cooperative. Wide awake and alert. Not confused, lethargic, or obtunded. Patient speaks in complete, fluent, without pause, interruption, cough, or wheeze. HEENT: normocephalic, atraumatic. EOMI, PERRL. No nystagmus, gaze paresis, anisocoria, miosis, mydriasis, hyphema, chemosis, scleral icterus, conjunctivitis, or pterygium. No otorrorhea. No rhinorrhea. No pharyngeal discharge or exudate. Neck: suppler, no stridor, bruit, goiter, JVD, or HJR. Lymph: no cervical, supraclavicular, infraclavicular, axillary, epitrochlear, or inguinal adenopathy. Chest: symmetric rise and fall with respiration. Non-tender to palpation. Lungs: clear to auscultation and percussion. No audible expiratory wheeze, egophony, pectoriloquy, increase in tactile fremitus, or flatness/dullness to percussion at the bases. Heart: RRR, S1 and S2 noted. No S3 or S4 summation gallop. No tripartite friction rub. Grade II/ early systolic murmur @ LLSB, not radiating to the carotids, the axilla, or back. Invariant in regards to the respiratory cycle. Abdomen: soft, non-tender, non-distended. No rebound, guarding, 's sign, or organomegaly. Bowel sounds auscultated in all 4 quadrants. Extremities: no clubbing, cyanosis. 1+ pitting pedal edema with extension to the bilateral lower shins, sparing the bilateral upper shins, knees, hips, thighs. 2+ pedal pulses bilaterally. Skin: no decubitus ulcer, exanthem, or enanthem. Neurology: alert and oriented in regards to person, place, and time. DTR+ and symmetric. Exquisite, hyperacute tenderness of the bilateral lower shins to slight palpation, etiology unclear. 5/5 motor strength in all 4 extremities, both proximally and distally. No tremors, tics, or myoclonus. Patient is actually walking in her room from the bed to the bathroom using a walker without any apparent difficulty at all: no stumbling, no scissoring or shuffling gait, no retropulsion. Fluid movement of upper and lower body parts as patient pivots from edge of bed to stand up with walker, and then starts walking without pause/hesitation at all on 07/09/2024, 12:31pm. Urology: no hussein catheter. No urethral discharge. Results & Data Results & Data Vital Signs (Past 12 Hours) Vital Signs Temp Pulse Resp BP Pulse Ox O2 Del Method 07/09/24 07:34 36.9 C 81 18 156/78 H 92 Room Air 07/09/24 07:30 Room Air Laboratory Results COVID+ (07/08/2024). U/A (07/08/2024, 5:30pm): LE-, nitrite- WBC 5.54, N75 L6 M16 E1 B1, Hb 13.5, MCV 91.9, MCHC 33.0, platelet 234 (07/08/2024, 3:30pm). Diagnostic Findings Portable CXR (07/08/2024, 4:00pm): No infiltrate, effusion, cardiomegaly, pulmonary vascular congestion, or pneumothorax (by my review). Left hip x-ray (07/08/2024, 8:00pm): [id number]-[id number]-zioa degenerative change of the left hip. Orthopedic surgery consultation could be considered if appropriate. ECG Additional Comments: EKG (07/08/2024, 3:22pm): NSR @ 82, RI 144, QTC 422, no acute ST elevations/depressions (by my review). PG Care Time/CCT Total # of Minutes Spent Total Time Spent with Patient: Total time spent is greater than 50% in coordination of care (as documented) at patient's floor/unit and/or counseling patient: Coding Level of Care Code 05391 SUB INP/OBS CARE 2/35MIN Diagnoses Ambulatory dysfunction R26.2 Lower extremity edema R60.0 COVID-19 U07.1 Greater trochanteric pain syndrome M25.559
--- NOTE | 2024-07-09 18:37 | Orthopedic Consultation ---
Date of Service July 09, 2024 Assessment & Plan (1) Degenerative joint disease of left hip: 79-year-old female with multiple medical comorbidities admitted with ambulatory dysfunction related to advanced left hip arthritis. She is currently has COVID as well. Fairly minimally symptomatic but does report a cough. Otherwise feeling well. Plan: This patient is scheduled for hip replacement surgery in July. We could do earlier but with her currently having COVID it does increase your risk of surgery specifically a hip arthroplasty. Her thrombosis risk would be higher. I think it is best to wait until she is over COVID episode. She can weight-bear as tolerated. Any orthopedic questions can be directly [phone]. (2) COVID-19: (3) Impaired fasting glucose: (4) Lower extremity edema: (5) Ambulatory dysfunction: History of Present Illness Reason for Consultation: . Left hip pain and ambulatory dysfunction. Requesting Physician: . Attending Physician: José Luis Knott MD, PhD . The patient is a 79-year-old female who was admitted for ambulatory dysfunction and left hip pain. Also been diagnosed with COVID. She has had some coughing but really no other symptoms from that. She has been followed by Dr. Byrd. She is actually scheduled for hip replacement surgery in July. She now presents. There has been no recent trauma. That she is having more more difficulty getting around. Lives by herself. Allergies Allergy/AdvReac Type Severity Reaction Status Date / Time enalapril AdvReac Unknown COUGH Verified 07/08/24 19:02 Home Medications Medication Instructions Recorded Confirmed Type celecoxib 100 mg capsule (Celebrex) 100 mg PO BID PRN Other 05/31/24 07/08/24 History ergocalciferol (vitamin D2) 1,250 50,000 unit PO Q7D 07/03/24 07/08/24 History mcg (50,000 unit) capsule oxybutynin chloride 15 mg 15 mg PO QAM 07/03/24 07/08/24 History tablet,extended release 24 hr rosuvastatin 10 mg tablet 10 mg PO HS 07/03/24 07/08/24 History triamterene 37.5 1 cap PO QAM 07/03/24 07/08/24 History mg-hydrochlorothiazide 25 mg capsule furosemide 20 mg tablet 20 mg PO DAILY 7 days #7 tabs 07/06/24 07/08/24 Rx diltiazem HCl 240 mg capsule,24 240 mg PO QAM 07/08/24 07/08/24 History hr,extended release (Tiadylt ER) Past Med/Surg History Problem List (Updated 07/09/24 @ 18:36 by Froylan Tomlinson MD) Degenerative joint disease of left hip COVID-19 (Acute) Encounter for pre-operative examination Greater trochanteric pain syndrome Vitamin D deficiency (Chronic) Medical History Impaired fasting glucose HgbA1C 05/09/24: 5.8% Urinary incontinence Hx of colonic polyps Paresthesia of right foot Lower extremity edema Ambulatory dysfunction Uses walker or wheelchair prn Hip arthritis Hypertension Hyperlipidemia Surgical History Hx of gynecological procedure Rectocele repair Hx of right cataract extraction History of colonoscopy History of left cataract extraction History of bilateral tubal ligation History of cholecystectomy Family History Brother Prostate cancer Other No family history of adverse response to anesthesia Denies family history of Ovarian cancer Myocardial infarction Breast cancer Colorectal cancer Social History Smoking Status: Never smoker Tobacco Type: Cigarettes Age Started Using Tobacco: 13; Age Quit Using Tobacco: 64; packs per day: 1.25; Second Hand Exposure: Yes (hx growing up); Do You Dip or Chew Tobacco: No; Hx Alcohol Use: No Hx Substance Use: No Preferred Language: Portuguese Communication Ability: Effective Visual Impairment: No Limitations Hearing Ability: Use of Hearing Aid Precipitator Supervisor Required: No Beliefs That Will Affect Care: None marital status: Current Living Situation: Alone current 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 status: 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 Physical Exam . Physical exam shows a pleasant elderly female. She is lying in bed looks pretty comfortable. Examination of the left hip and leg reveals no obvious deformity. She does have pain and stiffness with hip motion. No knee effusion. She is neurologically intact. Results & Data Results & Data Laboratory Results . Diagnostic Findings . X-rays of the hip reviewed. Shows advanced left hip arthritis. She got complete loss of the joint space. No signs of fracture or other pathology PG Care Time/CCT Total # of Minutes Spent Total Time Spent with Patient: Total time spent is greater than 50% in coordination of care (as documented) at patient's floor/unit and/or counseling patient: Coding Level of Care Code 63764 IN/OBS CONSULT LVL 4,60M Diagnoses Degenerative joint disease of left hip M16.12 COVID-19 U07.1 Impaired fasting glucose R73.01 Lower extremity edema R60.0 Ambulatory dysfunction R26.2
[2024-07-09] MEDS: ACETAMINOPHEN 325 MG TAB PO PRN (20:49)
[2024-07-10 06:31] LABS: BUN Creatinine Ratio 13.4 (10-20); Calcium 8.6 mg/dl (8.6-10.3); Creatinine Clr Calc Pharmacy 49.3 ml/min; Potassium 3.5 mmol/L (3.5-5.1)
[2024-07-10] MEDS: ENOXAPARIN INJ 40 MG/0.4 ML SYR SQ SCH (08:47)
[2024-07-10] MEDS ORDERED: ERGOCALCIFEROL 1250 MCG (50,000 UNITS) CAP PO SCH (09:00)
[2024-07-10] MEDS: TRIAMTERENE/HCTZ 37.5/25MG TAB PO SCH (11:27)
--- NOTE | 2024-07-10 15:32 | Hospitalist Progress Note ---
Date of Service July 10, 2024 Assessment & Plan (1) Ambulatory dysfunction: Plan: Irfwx-nv-lnamfhr ambulatory dysfunction, utilizing walker at home and in [facility]. Patient is obese with BMI 34.2 (height 160.0 cm; weight 87.543kg), and suffers from severe non-erosive osteoarthritis with apparent uxno-qb-vtsb disease in the left hip (as noted on 07/08/2024, 8:00pm left hip x-ray). Plans are in place for hip replacement surgery in 07/2024 Appreciate orthopedic surgery consultation-no acute management at this time Continue Celebrex and Tylenol for pain (2) Lower extremity edema: Plan: No significant edema on my examination Thought to be venous stasis Resume home HCTZ/triamterene and no further Lasix needed (3) COVID-19: Plan: Patient with fatigue, cough, no hypoxemia and chest x-ray negative No indication for remdesivir or dexamethasone at this time Prescribe guaifenesin dextromethorphan for cough Plan Chronic medical problems: Chronic urinary incontinence on oxybutynin chloride 15 mg PO qam at home. This anti-muscarinic medication was discontinued by previous hospitalist-while it may serve to mitigate patient's chronic urinary incontinence, and keep the patient's clothes and bedsheets dry, it does so at the expense of anti-cholinergic side effects, which includes dizziness and gait instability, followed by falls and/or fractures. 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 Follow-up with PCP and possibly heme-onc as an outpatient Hyperlipidemia: Resume home statin DVT prophylaxis. lovenox 40mg SQ daily Disposition-medically stable for discharge to rehab when bed available Admission and Anticipated Discharge Date Admission Date: July 08, 2024 Subjective Patient feeling very tired and has a persistent cough but denies any other symptoms. She has chronic pain in the left hip and agrees with rehab placement Physical Exam Constitutional: WD/WN, vitals as above Respiratory: normal respiratory effort, lungs clear to auscultation Cardiovascular: RRR, no murmur, no edema Psychiatric: A+Ox3, euthymic affect Results & Data Results & Data Vital Signs (Past 12 Hours) Vital Signs Temp Pulse Resp BP Pulse Ox O2 Del Method 07/10/24 07:54 37.1 C 83 18 137/78 94 Room Air 07/10/24 07:38 Room Air Laboratory Results BMP, CRP reviewed PG Care Time/CCT Total # of Minutes Spent Total Time Spent with Patient: Total time spent is greater than 50% in coordination of care (as documented) at patient's floor/unit and/or counseling patient: Coding Level of Care Code 91100 SUB INP/OBS CARE 09/16MIN Diagnoses Ambulatory dysfunction R26.2 Lower extremity edema R60.0 COVID-19 U07.1
[2024-07-10] MEDS: ROSUVASTATIN CALCIUM 10 MG TAB PO SCH (21:53)
[2024-07-10] MEDS: guaiFENesin/DEXTROM SYRUP 200MG/20MG 10ML UDC PO PRN (21:54)
--- NOTE | 2024-07-10 22:01 | Electrocardiogram Report ---
Test Reason : Blood Pressure : */* mmHG Vent. Rate : 82 BPM Atrial Rate : 82 BPM P-R Int : 144 ms QRS Dur : 86 ms QT Int : 362 ms P-R-T Axes : 26 34 48 degrees QTcB Int : 422 ms Normal sinus rhythm Normal ECG When compared with ECG of 04-Jul-2024 13:37, No significant change was found Confirmed by Marvin Cesar ([id number]) on 07/10/2024 10:01:40 PM Referred By: Confirmed By: Marvin Cesar
--- NOTE | 2024-07-11 15:40 | Hospitalist Progress Note ---
Date of Service July 11, 2024 Assessment & Plan (1) Ambulatory dysfunction: Plan: Mivnh-bv-mfuvcam ambulatory dysfunction, utilizing walker at home and in [facility]. Patient is obese with BMI 34.2 and suffers from severe non-erosive osteoarthritis with nmnj-eo-hlzz disease in the left hip (as noted on 07/08/2024, left hip x-ray). Plans are in place for hip replacement surgery in 08/10/2024 Appreciate orthopedic surgery consultation-no acute management at this time Continue Celebrex and Tylenol for pain (2) Lower extremity edema: Plan: Only trace pitting edema right greater than left legs bilaterally Thought to be venous stasis Continue home HCTZ/triamterene and no further Lasix needed (3) COVID-19: Plan: Patient with fatigue, cough, no hypoxemia and chest x-ray negative No indication for remdesivir or dexamethasone at this time Continue guaifenesin dextromethorphan as needed for cough Plan Chronic medical problems: Chronic urinary incontinence on oxybutynin chloride 15 mg PO qam at home. This anti-muscarinic medication was discontinued by previous hospitalist-while it may serve to mitigate patient's chronic urinary incontinence, and keep the patient's clothes and bedsheets dry, it does so at the expense of anti-cholinergic side effects, which includes dizziness and gait instability, followed by falls and/or fractures. 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 Follow-up with PCP and possibly heme-onc as an outpatient Hyperlipidemia: Continue home statin DVT prophylaxis. lovenox 40mg SQ daily Disposition-medically stable for discharge to rehab when bed available-[facility] Admission and Anticipated Discharge Date Admission Date: July 08, 2024 Subjective Feels her cough is improving and she is now able to cough up some sputum. Feels more energy today and has no other complaints. Physical Exam Constitutional: WD/WN, vitals as above Respiratory: normal respiratory effort, lungs clear to auscultation Cardiovascular: Rate/Rhythm: regular rate and regular rhythm Heart Sounds: no murmur Extremities: + edema (Trace pitting edema right greater than left legs) Psychiatric: A+Ox3, euthymic affect Results & Data Results & Data Vital Signs (Past 12 Hours) Vital Signs Temp Pulse Resp BP Pulse Ox O2 Del Method 07/11/24 07:16 Room Air 07/11/24 07:15 36.5 C 66 18 140/81 93 Room Air Laboratory Results No labs PG Care Time/CCT Total # of Minutes Spent Total Time Spent with Patient: Total time spent is greater than 50% in coordination of care (as documented) at patient's floor/unit and/or counseling patient: Coding Level of Care Code 48862 SUB INP/OBS CARE 1/25MIN Diagnoses Ambulatory dysfunction R26.2 Lower extremity edema R60.0 COVID-19 U07.1
--- NOTE | 2024-07-12 13:12 | Hospitalist Progress Note ---
Date of Service July 12, 2024 Assessment & Plan (1) Ambulatory dysfunction: Plan: Rchej-jt-dslritr ambulatory dysfunction, utilizing walker at home and in [facility]. Patient is obese with BMI 34.2 and suffers from severe non-erosive osteoarthritis with oyue-qn-djdg disease in the left hip (as noted on 07/08/2024, left hip x-ray). Plans are in place for hip replacement surgery in 08/10/2024 Appreciate orthopedic surgery consultation-no acute management at this time Continue Celebrex and Tylenol for pain (2) Lower extremity edema: Plan: Only trace pitting edema right greater than left legs bilaterally Thought to be venous stasis Continue home HCTZ/triamterene and no further Lasix needed (3) COVID-19: Plan: Patient with fatigue, cough, nasal congestion, poor appetite, but no hypoxemia and chest x-ray negative No indication for remdesivir or dexamethasone at this time Continue guaifenesin dextromethorphan as needed for cough Plan Chronic medical problems: Chronic urinary incontinence on oxybutynin chloride 15 mg PO qam at home. This anti-muscarinic medication was discontinued by previous hospitalist-while it may serve to mitigate patient's chronic urinary incontinence, and keep the patient's clothes and bedsheets dry, it does so at the expense of anti-cholinergic side effects, which includes dizziness and gait instability, followed by falls and/or fractures. 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 Follow-up with PCP and possibly heme-onc as an outpatient Hyperlipidemia: Continue home statin DVT prophylaxis. lovenox 40mg SQ daily Disposition-medically stable for discharge to rehab when bed available-[facility] Admission and Anticipated Discharge Date Admission Date: July 08, 2024 Subjective Patient reports cough is better still some nasal congestion. Appetite is lower than usual. Otherwise no problems. Physical Exam Constitutional: WD/WN, vitals as above Respiratory: normal respiratory effort, lungs clear to auscultation Cardiovascular: RRR, no murmur, no edema Rate/Rhythm: regular rate and regular rhythm Heart Sounds: no murmur Extremities: + edema (Trace pitting edema right greater than left legs) Psychiatric: A+Ox3, euthymic affect Results & Data Results & Data Vital Signs (Past 12 Hours) Vital Signs Temp Pulse Resp BP Pulse Ox O2 Del Method 07/12/24 07:56 Room Air 07/12/24 07:42 36.2 C L 67 16 134/82 95 Room Air Laboratory Results No labs PG Care Time/CCT Total # of Minutes Spent Total Time Spent with Patient: Total time spent is greater than 50% in coordination of care (as documented) at patient's floor/unit and/or counseling patient: Coding Level of Care Code 63385 SUB INP/OBS CARE 09/16MIN Diagnoses Ambulatory dysfunction R26.2 Lower extremity edema R60.0 COVID-19 U07.1
[2024-07-13 08:11] VITALS: RESP 16
--- NOTE | 2024-07-13 13:28 | Hospitalist Progress Note ---
Date of Service July 13, 2024 Assessment & Plan (1) Ambulatory dysfunction: Plan: Tbswi-yc-bnorzwr ambulatory dysfunction, utilizing walker at home and in [facility]. Patient is obese with BMI 34.2 and suffers from severe non-erosive osteoarthritis with avav-du-fewa disease in the left hip (as noted on 07/08/2024, left hip x-ray). Plans are in place for hip replacement surgery in 08/10/2024 Appreciate orthopedic surgery consultation-no acute management at this time Continue Celebrex and Tylenol for pain (2) Lower extremity edema: Plan: Only trace pitting edema right greater than left legs bilaterally Thought to be venous stasis Continue home HCTZ/triamterene and no further Lasix needed (3) COVID-19: Plan: Patient with fatigue, cough, nasal congestion, poor appetite, but no hypoxemia and chest x-ray negative No indication for remdesivir or dexamethasone at this time Continue guaifenesin dextromethorphan as needed for cough With some mild hospital delirium likely related to acute illness-supportive care Plan Chronic medical problems: Chronic urinary incontinence on oxybutynin chloride 15 mg PO qam at home. This anti-muscarinic medication was discontinued by previous hospitalist-while it may serve to mitigate patient's chronic urinary incontinence, and keep the patient's clothes and bedsheets dry, it does so at the expense of anti-cholinergic side effects, which includes dizziness and gait instability, followed by falls and/or fractures. 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 Follow-up with PCP and possibly heme-onc as an outpatient Hyperlipidemia: Continue home statin DVT prophylaxis. lovenox 40mg SQ daily Disposition-medically stable for discharge to rehab when bed available-awaiting bed at [facility] Admission and Anticipated Discharge Date Admission Date: July 08, 2024 Subjective Patient was found sitting on the ground next to her bed overnight. She remembers being down the ground but does not member how it happened. She denies any new pain or injuries. Nursing reports that she thought she saw a small child in the room this morning. When asked about this, she does not recall that. She is anxious to get to rehab and [facility] and Dr. De La Cruz. Physical Exam Constitutional: WD/WN, vitals as above Respiratory: normal respiratory effort, lungs clear to auscultation Cardiovascular: RRR, no murmur, no edema Rate/Rhythm: regular rate and regular rhythm Heart Sounds: no murmur Extremities: + edema (Trace pitting edema right greater than left legs) Psychiatric: A+Ox3, euthymic affect Results & Data Results & Data Vital Signs (Past 12 Hours) Vital Signs Temp Pulse Resp BP Pulse Ox O2 Del Method 07/13/24 08:09 36.8 C 73 16 147/82 H 94 Room Air 07/13/24 02:40 36.5 C 75 18 155/79 H 95 Room Air PG Care Time/CCT Total # of Minutes Spent Total Time Spent with Patient: Total time spent is greater than 50% in coordination of care (as documented) at patient's floor/unit and/or counseling patient: Coding Level of Care Code 27959 SUB INP/OBS CARE 09/16MIN Diagnoses Ambulatory dysfunction R26.2 Lower extremity edema R60.0 COVID-19 U07.1
[2024-07-14 06:38] VITALS: BP 147/88; TEMP 97.9; O2SAT 93
--- NOTE | 2024-07-14 11:59 | Discharge Summary ---
Discharge Summary Date of Service July 14, 2024 Principal Dx & Hospital Course #1 = Principal Diagnosis (1) Ambulatory dysfunction: Tcpsk-le-xcflisv ambulatory dysfunction, utilizing walker at home and in [facility]. Patient is obese with BMI 34.2 and suffers from severe non-erosive osteoarthritis with vjip-iz-myxt disease in the left hip (as noted on 07/08/2024, left hip x-ray). Plans are in place for hip replacement surgery in 08/10/2024 Appreciate orthopedic surgery consultation-no acute management at this time Continue Celebrex and Tylenol for pain (2) Lower extremity edema: Only trace pitting edema right greater than left legs bilaterally Thought to be venous stasis Continue home HCTZ/triamterene and no further Lasix needed Also may have been from previous diltiazem use which was recently discontinued (3) COVID-19: Patient with fatigue, cough, nasal congestion, poor appetite, but no hypoxemia and chest x-ray negative No indication for remdesivir or dexamethasone at this time Continue guaifenesin dextromethorphan as needed for cough With some mild hospital delirium likely related to acute illness-supportive care Plan Chronic medical problems: Chronic urinary incontinence on oxybutynin chloride 15 mg PO qam at home. This anti-muscarinic medication was discontinued by previous hospitalist-while it may serve to mitigate patient's chronic urinary incontinence, and keep the patient's clothes and bedsheets dry, it does so at the expense of anti-cholinergic side effects, which includes dizziness and gait instability, followed by falls and/or fractures. 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 Follow-up with PCP and possibly heme-onc as an outpatient Hyperlipidemia: Continue home statin HTN: Recently discontinued from diltiazem, remains on HCTZ triamterene-blood pressures are well-controlled DVT prophylaxis. lovenox 40mg SQ daily Disposition-medically stable for discharge to [facility] care Notes For Next Care Provider Needs follow-up with hematology for chronic peripheral monocytosis of unclear etiology Medication Changes From Visit Discontinued oxybutynin Added guaifenesin with dextromethorphan as needed for cough Admission HPI Per Admitting Provider Patient is a 79-year-old female presenting for worsening lower extremity edema as well as mild cough. Qlcdikck-nd-wea is concerned for patient's safety if she hears to return home, secondary to ambulatory dysfunction. ED course: CBC raymundo ssly WNL, PT/INR WNL, CMP WNL; troponin 9.3; BNP 181; lipase 25; UA with trace ketones only; positive for COVID-19; CXR no plain film evidence of acute cardiopulmonary process; EKG NSR rate around 80. Patient is a 79-year-old female with PMHx of osteoarthritis of the left hip, ambulatory dysfunction, HTN, and greater trochanteric pain syndrome, who is presenting with her daughter after worsening lower extremity edema x 3 days. Went to PCP and was prescribed 7-day dose of Lasix, did not take this complete course yet and just felt as though the edema was worsening. Kowidicy-lz-csh also feels as though patient is unable to safely return home secondary to her ambulatory dysfunction, and severe left hip pain secondary to OA. Patient is scheduled for a left hip replacement in July. Otherwise complaining of mild cough w/o SOB found to be COVID-positive. Denying chest pain, rhinorrhea, sore throat, abdominal pain, N/V/D/C, numbness/tingling, dysuria, or LUTS. Patient took all a.m. medications. Please see Dr. Fung's attestation for adjustments/additions to treatment plan. Discharge Exam Constitutional WD/WN, vitals as above Respiratory normal respiratory effort, lungs clear to auscultation Cardiovascular Rate/Rhythm: regular rate and regular rhythm Heart Sounds: no murmur Extremities: + edema (Trace pitting edema right greater than left legs) Psychiatric A+Ox3, euthymic affect Discharge Plan Discharge Items Patient Disposition: [facility] Reason For Visit: WEAKNESS,COVID Discharge Diagnosis: Left hip severe osteoarthritis Ambulatory dysfunction COVID-19 infection Condition on Discharge: Fair Activity: As commented below Lifting: Gradually increase as tolerated Bathing: No limitations Exercise/Sports: Gradually increase as tolerated Non-emergency contact: Primary Care Provider Call non-emergency contact if: you have any medication questions and your symptoms worsen Follow-up/Referrals: Ely Bain MD [Primary Care Provider] - Diet: Heart Healthy Addtl Attending Provider Instructions: Continue your same medications as before. You will need physical and Occupational Therapy for strengthening and balance due to your left hip arthritis prior to your hip surgery. As for your COVID-19 infection, you have a mild cough. You can continue the cough syrup as needed but do not require any further medications. Pending Studies at Discharge: No Stand-Alone Forms: My [facility] Skilled Items Patient informed of condition?: Yes DNR: No Discharge Level of Care: Skilled Communicable Disease: Yes (CoVid-19) Discharge Prognosis: Improving Lines: None Urinary Catheter: No Medications and DC Order Prescriptions: New dextromethorphan-guaifenesin [Robitussin Cough-Chest Pola DM] 5-100 mg/5 mL Liquid 10 ml PO Q6H PRN (Reason: cough) Qty: 120 0RF acetaminophen 325 mg Tablet 650 mg PO Q6H PRN (Reason: pain) Qty: 30 0RF Continued triamterene-hydrochlorothiazid 37.5-25 mg capsule 1 cap PO QAM ergocalciferol (vitamin D2) 1,250 mcg (50,000 unit) capsule 50,000 unit PO Q7D rosuvastatin 10 mg tablet 10 mg PO HS celecoxib [Celebrex] 100 mg capsule 100 mg PO BID PRN (Reason: Hip pain) Qty: 20 0RF Discontinued furosemide 20 mg tablet 20 mg PO DAILY 7 Days Qty: 7 0RF oxybutynin chloride 15 mg tablet extended release 24hr 15 mg PO QAM Discharge Orders: Discharge Order (Routine); Ordered 07/14/24 Ordered By: Mellisa Frederick Admission Data Admit Date/Time: 07/08/24 18:24 Attending Provider: Mellisa Frederick Admit Provider: Navid Fung Primary Care Provider: Ely Bain Other Providers: Navid Fung; [facility] Stay Data Consultations 07/08/24 18:17 ED Decision to Admit Stat 07/09/24 15:49 Consult Orthopedic Surgery Routine Pending Results Patient Have Any Pending Studies at Discharge: No Discharge Instructions Given to Patient (Per Discharging Provider) Continue your same medications as before. You will need physical and Occupational Therapy for strengthening and balance due to your left hip arthritis prior to your hip surgery. As for your COVID-19 infection, you have a mild cough. You can continue the cough syrup as needed but do not require any further medications. Total Time Total Time Spent Total Time Spent (In Minutes): 35 min Total Time Includes: Examination of the Patient, Discharge Planning and Medication Reconciliation Coding Level of Care Code 80532 INP/OBS DISCH >30 MIN Diagnoses Ambulatory dysfunction R26.2 Lower extremity edema R60.0 COVID-19 U07.1
[2024-07-14 12:54] VITALS: PULSE 77
== END 2024-07-14 13:24 | DRG 179 ==
LOC: ED 15:16 → SUATTDRO 18:24 → 3E 18:24

== ENCOUNTER 2024-08-10 05:08 | Observation (INO) ==
--- NOTE | 2024-07-03 11:30 | PAT Medication Instructions ---
Medication Instructions Date of Service July 03, 2024 Home Medications celecoxib 100 mg capsule (Celebrex) 100 mg PO BID PRN diclofenac sodium 1 % topical gel (Voltaren Arthritis Pain) 2 g EXT QID PRN diltiazem HCl 240 mg capsule,24 hr,extended release 240 mg PO QAM ergocalciferol (vitamin D2) 1,250 mcg (50,000 unit) capsule 50,000 unit PO Q7D lidocaine 5 % topical patch 1 patch transdermal QAM PRN oxybutynin chloride 15 mg tablet,extended release 24 hr 15 mg PO QAM rosuvastatin 10 mg tablet 10 mg PO QAM triamterene 37.5 mg-hydrochlorothiazide 25 mg capsule 1 cap PO QAM ASK your surgeon for instructions celecoxib 100 mg capsule (Celebrex) 100 mg PO BID PRN diclofenac sodium 1 % topical gel (Voltaren Arthritis Pain) 2 g EXT QID PRN STOP taking 24 hours before surgery lidocaine 5 % topical patch 1 patch transdermal QAM PRN DO NOT take the morning of surgery ergocalciferol (vitamin D2) 1,250 mcg (50,000 unit) capsule 50,000 unit PO Q7D oxybutynin chloride 15 mg tablet,extended release 24 hr 15 mg PO QAM triamterene 37.5 mg-hydrochlorothiazide 25 mg capsule 1 cap PO QAM Take morning of surgery With a small sip of water, OTHERWISE NOTHING TO EAT OR DRINK AFTER MIDNIGHT: diltiazem HCl 240 mg capsule,24 hr,extended release 240 mg PO QAM rosuvastatin 10 mg tablet 10 mg PO QAM Other Notes If you have any questions please call us at [phone] or [phone] or [phone] or [phone]
--- NOTE | 2024-07-04 12:50 | Anesthesiology Consultation ---
Date of Service July 04, 2024 Assessment & Plan (1) Encounter for pre-operative examination: - Infectious disease screening: Per assessment on 07/04/24- No known recent infectious disease contacts or current infectious disease symptoms. - Outpatient joint assessment: Pt currently scheduled for inpatient pathway. If surgeon requests review for outpatient joint pathway, patient is not recommended candidate for outpatient joint program from anesthesia standpoint based on available information. - Patient acceptable risk for surgery pending surgeon-ordered PCP preop evaluation ([facility] [place] 07[place]17). Chart Review Chart Review: Patient seen in Pre Admission Testing Teaching & Discussion Pre-Anesthesia Teaching/Discussion Notes: Instructed NPO after midnight before surgery,except medications with 15 cc of water. Medication instructions provided according to the PAT guidelines. History Surgery Operation Date: 08/10/24 07:00 Proposed Procedures p Left Total Hip Arthroplasty - Minor Diamond MD Height/Weight Height: 5 ft 3 in Weight: 89.9 kg Allergies Allergy/AdvReac Type Severity Reaction Status Date / Time enalapril AdvReac Unknown COUGH Verified 07/03/24 14:04 Medications Home Medications Medication Instructions Recorded Confirmed Last Taken celecoxib 100 mg capsule (Celebrex) 100 mg PO BID PRN Other 05/31/24 07/03/24 Unknown acetaminophen 325 mg capsule 650 mg PO Q6H PRN 07/03/24 07/03/24 Unknown (Tylenol) diclofenac sodium 1 % topical gel 2 g EXT QID PRN Pain 07/03/24 07/03/24 Unknown (Voltaren Arthritis Pain) diltiazem HCl 240 mg capsule,24 240 mg PO QAM 07/03/24 07/03/24 Unknown hr,extended release ergocalciferol (vitamin D2) 1,250 50,000 unit PO Q7D 07/03/24 07/03/24 Unknown mcg (50,000 unit) capsule lidocaine 4 % topical patch 1 patch topical BID PRN 07/03/24 07/03/24 Unknown oxybutynin chloride 15 mg 15 mg PO QAM 07/03/24 07/03/24 Unknown tablet,extended release 24 hr rosuvastatin 10 mg tablet 10 mg PO QAM 07/03/24 07/03/24 Unknown triamterene 37.5 1 cap PO QAM 07/03/24 07/03/24 Unknown mg-hydrochlorothiazide 25 mg capsule Past Medical History Medical History Ambulatory dysfunction Uses walker or wheelchair prn Hip arthritis Hx of colonic polyps Hyperlipidemia Hypertension Impaired fasting glucose HgbA1C 05/09/24: 5.8% Lower extremity edema Paresthesia of right foot Urinary incontinence Exercise / Class Metabolic Activity III < 4 Walking/Shop/Light housework Past Family History Family History Brother Prostate cancer Other No family history of adverse response to anesthesia Denies family history of Ovarian cancer Myocardial infarction Breast cancer Colorectal cancer Past Surgical History Surgical History History of bilateral tubal ligation History of cholecystectomy History of colonoscopy History of left cataract extraction Hx of gynecological procedure Rectocele repair Hx of right cataract extraction Past Anesthesia History No Hx of Anesthesia Complications and No Family Hx of Anesthesia Complications History of PONV No Hx of PONV and No Hx of Motion Sickness Social History Smoking Status: Former smoker Do You Dip or Chew Tobacco: No Smoking End Date: Quit many years ago Hx Alcohol Use: No Hx Substance Use: No substance use type: does not use Review of Systems Patient denies chest pain, shortness of breath, fever, chills, cough, wheezing, palpitations. Physical Exam Vital Signs BP 105/66 P 71 TEMP 98.1 SP02 94%RA RESP 18 Physical Full cervical extension range of motion. Full TMJ range of motion. TMD > 3.5 finger breaths Mallampati Score III Dentition: full dentures upper/lower Lungs: clear throughout to auscultation Cardiac: regular rate and rhythm, no murmurs noted Spine: normal Carotid arteries: negative bruit Extremities: non-pitting LE edema Lab Results Anesthesia Preop Results Results Anesthesia Widget: WBC 7.86 K/ul (4.8-10.8) 07/04/24 Hgb 13.2 g/dl (12.0-16.0) 07/04/24 Hct 39.6 % (37.0-47.0) 07/04/24 Plt 247 K/uL (130-400) 07/04/24 Na 140 mmol/L (136-145) 07/04/24 K 4.5 mmol/L (3.5-5.1) 07/04/24 Cl 104 mmol/L (98-107) 07/04/24 CO2 31 mmol/L (21-32) 07/04/24 BUN 19 mg/dl (6-23) 07/04/24 Creat 1.10 mg/dl (0.6-1.2) 07/04/24 Glucose Level 95 mg/dl (70-99(Fasting)) 07/04/24 PT 10.5 Seconds (9.0-12.0) 07/04/24 PTT 25 Seconds (21-31) 07/04/24 INR 1.0 (0.9-1.1) 07/04/24 HA1c 5.8 % (4.5-5.6) H 05/09/24 Urine Color Dark Yellow 07/05/24 Urine Appearance Cloudy (Clear) A 07/05/24 Urine pH 6.0 (4.5-7.5) 07/05/24 Urine Specific [place] 1.028 (1.000-1.030) 07/05/24 Urine Protein 1+ (Negative) H 07/05/24 Urine Glucose (UA) Negative (Negative) 07/05/24 Urine Ketones Trace (Negative) H 07/05/24 Urine Blood Negative (Negative) 07/05/24 Urine Nitrite Negative (Negative) 07/05/24 Urine Bilirubin 1+ (Negative) H 07/05/24 Urine Urobilinogen Negative (Negative) 07/05/24 Urine Leukocyte Esterase Trace (Negative) H 07/05/24 Urine WBC (Auto) 0-5 /hpf (0-5) 07/05/24 Urine RBC (Auto) 11-20 /hpf (0-2) H 07/05/24 Urine Hyaline Casts (Auto) 0-2 /lpf (0-2) 07/05/24 Urine Epithelial Cells (Auto) 0-2 /hpf (0-2) 07/05/24 Urine Bacteria (Auto) None Seen (None Seen) 07/05/24 Blood Type AB Positive 07/04/24 Antibody Screen NEGATIVE 07/04/24 Testing Electrocardiogram Date: 07/04/24 NSR at 67bpm. "Normal ECG"
--- NOTE | 2024-07-19 15:32 | History & Physical Report ---
Date of Service July 19, 2024 Assessment & Plan (1) Degenerative joint disease of left hip: Plan: PRE-OP Diagnosis: Left hip osteoarthritis Planned Procedure: Left total hip arthroplasty Plan: Patient is scheduled to undergo this procedure at the [facility] with Dr. Diamond on , August 10, 2024. Risks and complications of the procedure such as: Infection, bleeding, pain, scarring, nerve blood vessel damage, weakness, wound problems, stiffness, incomplete relief of symptoms, hardware failure, hardware loosening, wear, fracture, tendon or ligament injury, dislocation, leg length inequality, blood clots, Embolism, heart attack, stroke and were explained to the patient at her visit today. Informed consent to perform the procedure was obtained. Patient had an appointment with anesthesia July 04 and while there she obtained CBC with differential, complete metabolic panel, PT/INR, blood type and screen, urinalysis, urine culture and sensitivity, EKG, and a nasal culture for MRSA. Patient will also need preoperative medical clearance from their primary care provider. Patient states that she plans on doing physical therapy at [facility] for at least 1 week postoperatively before transitioning to in-home physical therapy for an additional week. She would like to do her outpatient physical therapy in our clinic if possible. Patient will need a walker, raised toilet seat, shower chair and a hip kit. During today's visit we reviewed the total hip packet as well as precautions. We discussed discharge planning from the hospital. We discussed lectures offered by [facility] in regards to joint replacement surgery via Zoom. I advised the patient that upon discharge from hospital we will prescribe a narcotic pain medication and anti- inflammatory. Patient will also be on an 81 mg aspirin twice daily for blood clot prevention. Patient will be scheduled for 2-week postoperative follow-up visit with on August 25. This chart was completed utilizing [employer] voice recognition software. Grammatical errors, random word insertions, pronoun errors, and in complete sentences are an occasional consequence of the system. Any questions or concerns about the content, text, or information contained within the body of this dictation should be addressed directly to the physician for clarification. History of Present Illness Chief Complaint: Chief Complaint: Left hip pain Primary Care Provider: Ely Bain MD History of Present Illness (including history relevant to procedure): This 79-year-old female presents to the clinic today for preoperative history and physical. She complains of intermittent left hip up until 5 years ago began having difficulty weightbearing secondary to pain. She has been using a walker for assistance for the last year. She is currently at [facility] following recent hospitalization. Patient reports her goal is to return home her where she lives by herself. She states she may be at [facility] until her hip pain is resolved but is having a home evlauation on Wednesday. She has been in a wheelchair since discharge but is going to PT twice a day at [facility]. She complains of the most pain in her groin worse with walking. She denies numbness or tingling. Previously she had left hip cortisone injections with Dr. Jones. She is not taking anything for pain. She has tried Celebrex with no change in symptoms. Review Of Systems: A 12 point review of systems is performed is unremarkable except for those things stated in the HPI and past medical history. Past Medical History: Problems: Arthritis of left hip Nevus Elevated cholesterol Hypertension Dysplastic nevus Procedure History Procedure Procedure Date Comments Shave biopsy Mammogram Gallbladder Surgery - tubes tied. Rectocele Colonoscopy 08/10/2023 - Repeat colonoscopy in 5 years - A) Transverse colon polyp, polypectomyTubular adenomaB) Sigmoid colon polyp, polypectomyHyperplastic polypC) Rectal polyp, polypectomyTubular adenoma - - Preparation of the colon was fair. - One 5 mm polyp in the transverse colon, removed with a cold snare. Resected and retrieved. - One 4 mm polyp in the sigmoid colon, removed with a jumbo cold forceps. Resected and retrieved. - One 8 mm polyp in the rectum, removed with a cold snare. Resected and retrieved. Colonoscopy 08/05/2022 - COLO to cecum, diverticulosis, 3 polyps removed, fair prep. Colonoscopy 08/11/2019 - COLO to cecum, panddivertiulosis, 3 sigmoid polyps cold sneard, rectal polyp hot snared. Allergies and Sensitivities: Vasotec(Cough) Current Home Meds: (Last Updated 07/19 11:22) celecoxib 100 mg diclofenac topical (diclofenac 1% topical gel) diltiazem (diltiazem 240 mg/24 hours oral capsule, extended release) 240 mg PO Daily ergocalciferol (Vitamin D2) 50,000 Int_Unit PO 1tab daily for 8 weeks hydrochlorothiazide-triamterene (hydrochlorothiazide-triamterene 25 mg-37.5 mg oral tablet) 1 tab PO Daily magnesium sulfate/potass Cl/sodium sulf (Sutab oral tablet) PLEASE FOLLOW ENDOSCOPY CENTER PREP INSTRUCTIONS, NOT PACKAGE INSERT. magnesium sulfate/potassium sulfate/sodium sulfate (Suprep Bowel Prep Kit oral liquid) Take as directed. meloxicam ondansetron (Zofran 4 mg oral tablet) 4 mg PO bid PRN: as needed for nausea/vomiting MAY TAKE 1 TABLET 30 MINUTES PRIOR TO COLONOSCOPY PREP IF NEEDED FOR NAUSEA/VOMITING oxyBUTYnin 15 mg traMADol Initial Wt: 07/19 84.3 kg 185 lb Allergies Allergy/AdvReac Type Severity Reaction Status Date / Time enalapril AdvReac Unknown COUGH Verified 07/08/24 19:02 Home Medications Medication Instructions Recorded Confirmed Type ergocalciferol (vitamin D2) 1,250 50,000 unit PO Q7D 07/03/24 07/08/24 History mcg (50,000 unit) capsule rosuvastatin 10 mg tablet 10 mg PO HS 07/03/24 07/08/24 History triamterene 37.5 1 cap PO QAM 07/03/24 07/08/24 History mg-hydrochlorothiazide 25 mg capsule acetaminophen 325 mg tablet 650 mg (2 x 325 mg) PO Q6H PRN 07/14/24 Rx pain #30 tabs celecoxib 100 mg capsule (Celebrex) 100 mg PO BID PRN Hip pain #20 caps 07/14/24 07/08/24 Rx dextromethorphan-guaifenesin 5 10 ml PO Q6H PRN cough #120 mL 07/14/24 Rx mg-100 mg/5 mL oral liquid (Robitussin Cough-Chest Congestion DM) Past Med/Surg History Problem List (Updated 07/09/24 @ 18:36 by Froylan Tomlinson MD) Degenerative joint disease of left hip COVID-19 (Acute) Encounter for pre-operative examination Greater trochanteric pain syndrome Vitamin D deficiency (Chronic) Medical History Impaired fasting glucose HgbA1C 05/09/24: 5.8% Urinary incontinence Hx of colonic polyps Paresthesia of right foot Lower extremity edema Ambulatory dysfunction Uses walker or wheelchair prn Hip arthritis Hypertension Hyperlipidemia Surgical History Hx of gynecological procedure Rectocele repair Hx of right cataract extraction History of colonoscopy History of left cataract extraction History of bilateral tubal ligation History of cholecystectomy Family History Brother Prostate cancer Other No family history of adverse response to anesthesia Denies family history of Ovarian cancer Myocardial infarction Breast cancer Colorectal cancer Social History Smoking Status: Never smoker Tobacco Type: Cigarettes Age Started Using Tobacco: 13; Age Quit Using Tobacco: 64; packs per day: 1.25; Second Hand Exposure: Yes (hx growing up); Do You Dip or Chew Tobacco: No; Hx Alcohol Use: No Hx Substance Use: No Preferred Language: Mauritian Communication Ability: Effective Visual Impairment: No Limitations Hearing Ability: Use of Hearing Aid Combination Saw Operator Required: No Beliefs That Will Affect Care: None marital status: Current Living Situation: Alone current 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 status: retired 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, [employer] Feels Safe at Home: Yes Childhood Exposure to Second-Hand Smoke: Yes Diet: low salt Diet Comment: watches her salt intake, does this by choice caffeine: Yes during the past year weight has: remained stable Dental Care, Regularly: No Physical Activity Frequency: Daily Physical Activity Frequency Comment: walking about 30 min a day Seatbelt Use: always Sunscreen Use: No Assistive Devices: Walker Physical Exam Physical Exam: Physical Exam: (relevant to the procedure, including heart and lung evaluation) General: Alert and oriented x 3 with proper grooming and hygiene Eyes: Pupils are equal reactive to light with accommodation. Extraocular moods are intact Throat: Posterior oropharynx clear with absence of edema, erythema or exudate. Patient has upper and lower dentures Cardiac: Regular rate and rhythm no murmurs or gallops appreciated Lungs: Clear to auscultation throughout with no wheezing, rales or rhonchi Abdomen: Mildly obese, nondistended, nontender with NABS Extremities: Left hip; flexion is limited to 80 degrees, internal rotation to -5 degrees and external rotation to 15 degrees. Logroll test is positive. Stinchfield test is positive. Straight leg raise test causes referred pain to the groin. Patient has tenderness to palpation over the groin area and over the trochanteric bursa. She is neurovascularly intact. Neuro: Cranial nerves II 12 intact no motor or sensory deficit Skin: Normal appearance with no open skin areas or discharge Results & Data Diagnostic Findings Studies (relevant to the procedure): AP Pelvis, AP and cross table lateral of the left hip taken demonstrate end-stage left hip arthritis
[2024-08-10] MEDS: LR 500ML BOLUS, THEN 15ML/HR IV SCH (05:50)
[2024-08-10] MEDS: LR 60ML/HR IV SCH (06:01)
[2024-08-10] MEDS: FAMOTIDINE 20 MG TAB PO SCH (06:03)
[2024-08-10] MEDS: CeleBREX 200 MG CAP PO SCH (06:03)
[2024-08-10] MEDS: Scopolamine 1 MG TDSY TD SCH (06:03)
[2024-08-10] MEDS: traMADol HCL 50 MG TABLET PO SCH (06:03)
[2024-08-10] MEDS: ACETAMINOPHEN 500 MG TAB PO SCH ×2 (06:03→13:50)
[2024-08-10] MEDS: dexAMETHasone**PF** 10 MG/ML VIAL IV SCH (06:06)
[2024-08-10] MEDS ORDERED: BUPIVACAINE 0.5 % 5 MG/1 ML PF 10ML VIAL ONE (06:22)
[2024-08-10] MEDS: TRANEXAMIC ACID 1,000 MG **IV Pre-op IV SCH (06:40)
--- NOTE | 2024-08-10 06:41 | History & Physical Bridge Note ---
Date of Service August 10, 2024 History & Physical Bridge Note I have examined the patient, reviewed the History & Physical and in the interval since the performance of the History & Physical I have noted the following changes of clinical significance: no changes noted
--- NOTE | 2024-08-10 06:42 | Anesthesiology Consultation ---
Date of Service August 10, 2024 Assessment & Plan Chart Review Chart Review: Acceptable Risk for Surgery and Patient NOT seen in Pre Admission Testing Consults Requested none ASA ASA3 Proposed Anesthesia Anesthesia Type: MAC Spinal Risk / Benefits Reviewed With: PT / POA / Parent / Guardian, Accepts Plan and Informed Consent Obtained History Surgery Operation Date: 08/10/24 07:00 Proposed Procedures p Left Total Hip Arthroplasty - Minor Diamond MD Height/Weight Height: 5 ft 3 in Weight: 81.8 kg Allergies Allergy/AdvReac Type Severity Reaction Status Date / Time enalapril AdvReac Mild COUGH Verified 08/10/24 05:38 Medications Home Medications Medication Instructions Recorded Confirmed Last Taken ergocalciferol (vitamin D2) 1,250 50,000 unit PO Q7D 07/03/24 08/10/24 08/07/24 10:00 mcg (50,000 unit) capsule rosuvastatin 10 mg tablet (Crestor) 10 mg PO HS 07/03/24 08/10/24 08/06/24 20:00 acetaminophen 325 mg tablet 650 mg (2 x 325 mg) PO Q6H PRN 07/14/24 08/10/24 Unknown pain #30 tabs furosemide 20 mg tablet 20 mg PO DAILY 08/08/24 08/10/24 08/09/24 10:00 meloxicam 15 mg tablet 15 mg PO DAILY 08/10/24 08/10/24 08/08/24 20:00 Active Medications Generic Name Dose Route Start Last Admin Trade Name Freq PRN Reason Stop Dose Admin Acetaminophen 1,000 mg 08/10/24 06:00 08/10/24 06:03 Acetaminophen 500 Mg Tab PO 08/10/24 18:00 1,000 mg PREOP GIANCARLO Administration Celecoxib 200 mg 08/10/24 06:00 08/10/24 06:03 Celebrex 200 Mg Cap PO 08/10/24 18:00 200 mg PREOP GIANCARLO Administration Dexamethasone Sodium Phosphate 10 mg 08/10/24 06:00 08/10/24 06:06 DexamethasonePf 10 Mg/Ml Vial IV 08/10/24 18:00 10 mg PREOP GIANCARLO Administration Famotidine 20 mg 08/10/24 06:00 08/10/24 06:03 Famotidine 20 Mg Tab PO 08/10/24 18:00 20 mg PREOP GIANCARLO Administration Lactated Ringer's 1,000 mls @ 60 mls/hr 08/10/24 06:00 08/10/24 06:01 Lr IV 08/10/24 22:39 Not Given .[id number] GIANCARLO Tranexamic Acid 1,000 mg in 100 mls @ 600 mls/hr 08/10/24 06:00 08/10/24 06:40 Tranexamic Acid / 0.7% Nacl IV 08/10/24 18:00 600 mls/hr TODAY@0600 GIANCARLO Administration Lactated Ringer's 1,000 mls @ 15 mls/hr 08/10/24 06:00 08/10/24 05:50 Lr IV 08/10/24 18:00 15 mls/hr .Q24H GIANCARLO Administration Scopolamine 1 patch 08/10/24 06:00 08/10/24 06:03 Scopolamine 1 Mg Tdsy TD 08/10/24 18:00 1 patch PREOP GIANCARLO Administration Tramadol HCl 50 mg 08/10/24 06:00 08/10/24 06:03 Tramadol Hcl 50 Mg Tablet PO 08/10/24 18:00 50 mg PREOP GIANCARLO Administration NPO Date Last Intake of Fluids: 08/09/24 Time Last Intake of Fluids: 22:00 Date Last Intake of Solids: 08/09/24 Time Last Intake of Solids: 17:00 Past Medical History Medical History Hard of hearing does not wear hearing aids Impaired fasting glucose HgbA1C 05/09/24: 5.8% Urinary incontinence Hx of colonic polyps Paresthesia of right foot Lower extremity edema Ambulatory dysfunction Uses walker or wheelchair prn Hip arthritis Hypertension Hyperlipidemia Exercise / Class Metabolic Activity III < 4 Walking/Shop/Light housework Past Family History Family History Brother Prostate cancer Other No family history of adverse response to anesthesia Denies family history of Ovarian cancer Myocardial infarction Breast cancer Colorectal cancer Past Surgical History Surgical History Hx of gynecological procedure Rectocele repair Hx of right cataract extraction History of colonoscopy History of left cataract extraction History of bilateral tubal ligation History of cholecystectomy Past Anesthesia History No Hx of Anesthesia Complications and No Family Hx of Anesthesia Complications History of PONV No Hx of PONV and No Hx of Motion Sickness Social History Smoking Status: Never smoker Do You Dip or Chew Tobacco: No Smoking End Date: Quit many years ago Hx Alcohol Use: No Hx Substance Use: No substance use type: does not use Physical Exam Vital Signs Last Vital Signs Temp 36.5 C 08/10/24 05:43 Pulse 73 08/10/24 05:43 Resp 20 08/10/24 05:43 BP 124/73 08/10/24 05:43 Pulse Ox 98 08/10/24 05:43 O2 Del Method Room Air 08/10/24 05:43 Constitutional + obese; no acute distress ENMT Mouth: + dentition abnormality and + dentures Thyromental Distance: < 3.5 Finger Breadths Mallampati Class: II Neck normal visual inspection and trachea midline; neck extension not limited Respiratory normal respiratory effort; no respiratory distress Auscultation: + diminished lung sounds Cardiovascular Rate/Rhythm: regular rate and regular rhythm Heart Sounds: no murmur Vessels: no carotid bruit Musculoskeletal Spine: normal cervical ROM and no pain with cervical ROM Extremities: extremities normal to inspection; full ROM of extremities Neurologic moves all extremities Motor/Sensory: no sensory deficit Psychiatric Orientation: alert and oriented x 3
[2024-08-10] MEDS ORDERED: PROPOFOL IV EMULSION 10 MG/ML 20 ML VIAL IV ONE ×2 (06:46→07:27)
[2024-08-10] MEDS ORDERED: LIDOCAINE 2% 2 ML VIAL/AMP(20MG/ML) INFIL ONE (06:46)
[2024-08-10] MEDS ORDERED: MIDAZOLAM HCL 1 MG/ML 2ML VIAL ONE ×2 (06:47→06:50)
[2024-08-10] MEDS ORDERED: fentaNYL citrate PF 100 MCG/2 ML VIAL ONE (06:50)
[2024-08-10] MEDS: ceFAZolin 2000MG 2,000 MG/15 ML SYR IV SCH ×2 (06:59→15:25)
[2024-08-10] MEDS ORDERED: ePHEDrine sulfate 50 MG/ML AMP IV PRN (07:03)
[2024-08-10] MEDS ORDERED: PROMETHAZINE HCL 6.25 MG in SODIUM CHLORIDE 0.9% 50 ML IV PRN (07:03)
[2024-08-10] MEDS ORDERED: HYDROmorphone INJ 1 MG/ML SYRINGE IV PRN (07:03)
[2024-08-10] MEDS ORDERED: ATROPINE SULFATE 0.1 MG/ML 10ML SYR IV PRN (07:03)
[2024-08-10] MEDS ORDERED: NALOXONE HCL 0.4 MG/1 ML VIAL/CARP IV PRN ×2 (07:03→08:52)
[2024-08-10] MEDS ORDERED: fentaNYL citrate PF 100 MCG/2 ML VIAL IV PRN (07:03)
[2024-08-10] MEDS ORDERED: FLUMAZENIL 0.1 MG/1 ML 10 ML VIAL IV PRN (07:03)
[2024-08-10] MEDS ORDERED: ONDANSETRON INJ 2 MG/ML 2 ML VIAL IV PRN ×2 (07:03→08:52)
[2024-08-10] MEDS: ORTHO JOINT ANESTHETIC ONE (07:31)
[2024-08-10] MEDS: ROPIVACAINE 0.5% HCL/PF 246 MG, Ketorolac (*for OR use only*) 30 MG, EPINEPHrine 30MG/3... INFIL SCH (07:31)
[2024-08-10] MEDS ORDERED: PHENYLEPHRINE 100MCG/ML 5ML SYR ONE (07:46)
[2024-08-10] MEDS: TRANEXAMIC ACID 1,000 MG **IV Intra-op IV SCH (08:15)
--- NOTE | 2024-08-10 08:46 | Operative Report ---
Post Operative Report Pre & Post Diagnosis Operation Date: 08/10/24 07:00 Pre-Op Diagnosis: Left Hip Osteoarthritis Post-Op Diagnosis: Left Hip Osteoarthritis I identified the patient and participated in the time-out.: Yes Procedure Operation Date: 08/10/24 07:00 Actual Procedures p Left Total Hip Arthroplasty, Uncemented(Left) - Minor Diamond MD Surgeon Minor Diamond MD Editing Computer Publisher Brian Colindres and MAKAYLA Pennington PA-C Estimated Blood Loss 100 Findings Consistent with Post-Op Diagnosis Specimens left femoral head Anesthesia Type Spinal MAC Complications none Disposition Disposition: Recovery Room Indications 79-year-old female, with left hip osteoarthritis refractory to conservative management. X-rays demonstrate [id number] arthritis with flattening of the superior femoral head. I had a long discussion with her about the risks and benefits of surgery, alternatives to surgery, and expected outcomes. After reviewing all these she elected to proceed with surgery. All questions were answered. Informed consent was signed. Description of Procedure Patient was identified in the preoperative holding area where the surgical site, left hip, was marked. A spinal anesthetic was placed, then the patient was brought back to the main operating room, placed in the operating table and moved into the lateral decubitus position. Axillary roll was placed. All bony pr ominences were padded. Perioperative antibiotics and tranexamic acid 1 gram IV were administered. The operative extremity was prepped and draped in the normal sterile fashion. Prior to incision a multidisciplinary timeout was called. All in the room were in agreement. We began by making an incision for a posterior approach to the hip. We dissected down through subcutaneous tissues to the level of the fascia. The fascia was incised in line with the incision. Charnley bow was placed. Fatty tissue was reflected posteriorly off the back of the greater trochanter to expose the piriformis and short external rotators of the hip. Quadratus femoris was taken off the femur subperiosteally. The piriformis and short external rotators were dissected off the posterior aspect of the hip. A box cut was made in the capsule. Inferior hip capsule was released off the femur. The femoral head was dislocated. The femoral neck cut was made at our preoperative template. The acetabulum was then exposed. The labrum was sharply excised. Contents of the cotyloid fossa were removed with electrocautery. We then began reaming at a size 8 mm less than our preoperative template. We reamed up by 1 [address] increments [address] the way up to a size 54 mm cup. This gave us good bleeding cancellus bone circumferentially. The acetabulum was then irrigated out and dried. The real Nelson Gription cup was then impacted down into position with 45 degrees of lateral opening and 25 degrees of anteversion. A single cancellous bone screw was placed up into the ilium. Excellent fixation was obtained. A trial liner for a 36 mm femoral head was then placed. Next we turned our attention to the femur. The lateral neck was removed with a box osteotome. Intramedullary guide was used to establish the intramedullary canal. We then broached all the way up to a size 3. Her canal narrowed distally so I did use the reamers to open up the intramedullary canal distally. We began trialing with a high offset neck and a +5 head. Hip was reduced. Leg lengths were symmetric. The hip was stable in extension and external rotation, and stable in the sleeper position. At 90 degrees of hip flexion the hip could be internally rotated 65 degrees before levering out of the cup. I was very happy with the stability exam. Therefore the hip was dislocated and the femoral trial was removed. The acetabulum was re-exposed, and the trial liner was removed. Montgomery hole eliminator screw was placed. An Altrx polyethylene liner for a 36 mm femoral head was then impacted into the shell. The locking mechanism was checked to ensure that it had engaged which it had. The femur was re-exposed. The femoral canal was irrigated and dried. The real Actis femoral stem was opened up. This was impacted down into position. The femoral head was opened up and gently impacted down onto the trunnion. The hip was atraumatically reduced. Another 1 gram of IV tranexamic acid was started prior to closure. The wound was irrigated out with sterile Betadine solution. The periarticular injection cocktail was then placed. The short external rotators, piriformis, and posterior capsule were repaired through drill holes in the greater trochanter using #2 Vicryl. The fascia was run with a looped #1 PDS. The subcutaneous layer was closed with #1 PDS. The dermal layer was closed with 2-0 Vicryl. Zip line was used for the skin followed by a Silverlon dressing. A compressive dressing was then placed. The patient was then rolled supine. Leg lengths were rechecked and were symmetric. An abduction pillow was placed. Sedation was lifted and the patient was transferred to the recovery room in stable condition. Summary of implants: Depuy Nelson Gription Acetabular Shell Sector Cup, 54 mm outer diameter Nelson Cancellous bone screw, 6.5 x 40 mm Montgomery hole eliminator Nelson Altrx Polyethylene Acetabular Liner, Neutral, with a 36 mm inner diameter DePuy Actis collared cementless Femoral stem, 12/14 taper, size 3 high offset 36 mm ceramic femoral head with +5 offset Postoperative course: Patient will be admitted overnight from the recovery room. Patient will be weightbearing as tolerated with posterior hip precautions. Aspirin for DVT prophylaxis I attest to the content of the Intraoperative Record and any orders documented therein. Any exceptions are noted below.
[2024-08-10] MEDS ORDERED: diphenhydrAMINE 50 MG/ML VIAL IV PRN (08:52)
[2024-08-10] MEDS ORDERED: ALUMINUM/MAGNESIUM SUSP 30 ML UDC PO PRN (08:52)
[2024-08-10] MEDS ORDERED: MAGNESIUM HYDROXIDE SUSP 30 ML UDC PO PRN (08:52)
[2024-08-10] MEDS ORDERED: METOCLOPRAMIDE HCL INJ 5 MG/ML 2 ML VIAL IV PRN (08:52)
[2024-08-10] MEDS ORDERED: oxyCODONE HCL IR 5 MG TAB (IMMEDIATE RELEASE) PO PRN (08:52)
[2024-08-10] MEDS ORDERED: bisacodyL 10 MG SUPP PR PRN (08:52)
--- NOTE | 2024-08-10 08:52 | Operative Report ---
Post Operative Report Pre & Post Diagnosis Operation Date: 08/10/24 07:00 Pre-Op Diagnosis: Left Hip Osteoarthritis Post-Op Diagnosis: Left Hip Osteoarthritis I identified the patient and participated in the time-out.: Yes Procedure Operation Date: 08/10/24 07:00 Actual Procedures p Left Total Hip Arthroplasty, Uncemented(Left) - Minor Diamond MD Surgeon Dr. Diamond Computing Services Director Brian Colindres and MAKAYLA Pennington PA-C Estimated Blood Loss 100 Findings Consistent with Post-Op Diagnosis Specimens femoral head Description of Procedure Please see Dr. Diamond's procedure note for full details. I was present for the entire case. I assisted with prepping, draping, retraction, suction, leg manipulation, wound closure, and dressing application. I attest to the content of the Intraoperative Record and any orders documented therein. Any exceptions are noted below.
--- NOTE | 2024-08-10 08:52 | Operative Report ---
Post Operative Report Pre & Post Diagnosis Operation Date: 08/10/24 07:00 Pre-Op Diagnosis: Left Hip Osteoarthritis Post-Op Diagnosis: Left Hip Osteoarthritis I identified the patient and participated in the time-out.: Yes Procedure Operation Date: 08/10/24 07:00 Actual Procedures p Left Total Hip Arthroplasty, Uncemented(Left) - Minor Diamond MD Surgeon Minor Diamond MD Fuel Efficient Aircraft Designer Brian Colindres and MAKAYLA Pennington PA-C Estimated Blood Loss 100 Findings Consistent with Post-Op Diagnosis Specimens femoral head Description of Procedure I was present during the entire case assisting with positioning, prepping, draping, wound retraction, wound closure, dressing and abduction pillow placement. No fellow present. Please see Dr. Diamond procedure note for specifics of the case. I attest to the content of the Intraoperative Record and any orders documented therein. Any exceptions are noted below.
--- NOTE | 2024-08-10 09:24 | XRay Report ---
XR pelvis 1-2V routine HISTORY: 79 years-old Female In PACU - Post Surgical left hip arthroplasty COMPARISON: Pelvis radiograph 07/19/2024 TECHNIQUE: AP view the pelvis FINDINGS: Left hip arthroplasty demonstrates satisfactory alignment. Expected postoperative soft tissue swellin g with deep tissue air. Surgical clip projects over the midline pelvis. [id number] right hip os teoarthritis. IMPRESSION: Unremarkable appearance of the left hip arthroplasty. ACT 112: Negative or not required by law. The above report was generated using voice recognition software. It may contain grammatical, syntax o r spelling errors. Electronically signed by: Brad Poon M.D. 08/10/2024 9:23 AM
--- NOTE | 2024-08-10 09:27 | Anesthesiology Progress Note ---
Date of Service August 10, 2024 Anesthesia Post Procedure Vital Signs Vital Signs: Temp Pulse Pulse Resp BP Pulse Ox O2 Del Method 08/10/24 09:20 74 15 107/53 L 93 Room Air 08/10/24 09:10 74 14 108/56 L 97 Oxymask 08/10/24 09:00 70 14 107/59 L 99 Oxymask 08/10/24 08:50 36.0 C L 65 15 92/50 L 98 Oxymask 08/10/24 05:43 36.5 C 73 20 124/73 98 Room Air O2 Flow Rate 08/10/24 09:20 08/10/24 09:10 2 08/10/24 09:00 2 08/10/24 08:50 4 08/10/24 05:43 Transfer of Care Handoff Completed per policy Notes Mental Status: alert / awake / arousable Patient Amnestic to Procedure: Yes Nausea / Vomiting: adequately controlled Pain: adequately controlled Airway Patency, RR, SpO2: stable & adequate BP & HR: stable & adequate Hydration State: stable & adequate Neuraxial Anesthesia: was administered and sensory block is resolving Anesthetic Complications: no major complications apparent
[2024-08-10] MEDS: DOCUSATE SODIUM 100 MG CAP PO SCH (11:35)
[2024-08-10] MEDS: KETOROLAC TROMETHAMINE 15 MG/ML VIAL IV SCH (11:35)
[2024-08-10] MEDS: FUROSEMIDE 20 MG TAB PO SCH (11:36)
[2024-08-10] MEDS: MULTIVITAMIN TAB PO SCH (11:36)
[2024-08-10] MEDS: Scopolamine CHECK PATCH PLACEMENT SCH (15:26)
--- NOTE | 2024-08-10 16:30 | Orthopedic Progress Note ---
Date of Service August 10, 2024 Assessment & Plan (1) S/P total hip arthroplasty: Plan: Weightbearing as tolerated with walker assistance PT/OT Pain control with p.o. medication DVT prophylaxis with CHIKA stockings and Xarelto Keep dressing in place Will see during morning rounds tomorrow with possible discharge. Admission and Anticipated Discharge Date Admission Date: August 10, 2024 Subjective This 79-year-old female was seen after undergoing a left total hip arthroplasty earlier this morning. She is doing very well. She has no complaints. She states she has no pain. She is currently on oxygen. Nasal cannula but has no complaint of shortness of breath or chest pain. She also denies nausea or vomiting. She has no complaint of numbness or tingling in her left lower extremity. Review of Systems Review of Systems: All systems reviewed & are unremarkable except as noted in Subjective Physical Exam Physical Exam: Left hip; dressing is clean dry and intact left in place. Patient is unable to perform active straight leg raise test. She is able to actively dorsi and plantarflex her foot. She has no discomfort with logroll testing. Her periph eral pulses are 2+. She is neurovascularly intact. Results & Data Vital Signs (Past 12 Hours) Vital Signs Temp Pulse Pulse Resp BP BP Pulse Ox 08/10/24 13:53 36.5 C 89 17 109/64 96 08/10/24 12:55 36.5 C 94 H 16 130/76 96 08/10/24 11:58 36.3 C L 74 16 117/73 97 08/10/24 11:30 36.5 C 81 17 114/67 96 08/10/24 11:23 08/10/24 11:01 36.9 C 81 17 119/63 95 08/10/24 10:35 76 16 97/62 L 96 08/10/24 10:20 36.2 C L 76 16 103/61 96 08/10/24 10:10 75 16 104/59 L 96 08/10/24 10:00 75 16 102/57 L 97 08/10/24 09:50 75 16 101/60 96 08/10/24 09:40 74 15 98/56 L 89 L 08/10/24 09:30 76 15 102/55 L 91 08/10/24 09:20 74 15 107/53 L 93 08/10/24 09:10 74 14 108/56 L 97 08/10/24 09:00 70 14 107/59 L 99 08/10/24 08:50 36.0 C L 65 15 92/50 L 98 08/10/24 05:43 36.5 C 73 20 124/73 98 O2 Del Method O2 Flow Rate 08/10/24 13:53 Nasal Cannula 1 08/10/24 12:55 Nasal Cannula 1 08/10/24 11:58 Nasal Cannula 1 08/10/24 11:30 Nasal Cannula 1 08/10/24 11:23 Nasal Cannula 1 08/10/24 11:01 Nasal Cannula 1 08/10/24 10:35 Nasal Cannula 1 08/10/24 10:20 Nasal Cannula 1 08/10/24 10:10 Nasal Cannula 1 08/10/24 10:00 Nasal Cannula 1 08/10/24 09:50 Nasal Cannula 1 08/10/24 09:40 Room Air 08/10/24 09:30 Room Air 08/10/24 09:20 Room Air 08/10/24 09:10 Oxymask 2 08/10/24 09:00 Oxymask 2 08/10/24 08:50 Oxymask 4 08/10/24 05:43 Room Air
[2024-08-10] MEDS: SENNA 8.6 MG TAB PO SCH (20:16)
[2024-08-10] MEDS: ROSUVASTATIN CALCIUM 10 MG TAB PO SCH (20:16)
[2024-08-11] MEDS: CeleBREX 200 MG CAP PO SCH (07:30)
[2024-08-11] MEDS: dexAMETHasone 4 MG TAB PO SCH (07:31)
[2024-08-11] MEDS: ASPIRIN 81 MG ECTAB PO SCH (07:31)
[2024-08-11 08:18] LABS: BUN Creatinine Ratio 18.8 (10-20); Calcium 9.2 mg/dl (8.6-10.3); Creatinine Clr Calc Pharmacy 27.2 ml/min; Potassium 3.4 mmol/L (3.5-5.1)
[2024-08-11 08:33] LABS: Basophils # (auto) 0.03 K/uL (0.00-0.20); Basophils % (auto) 0.2 %; Hematocrit (blood only) 35.1 % (37.0-47.0); Hemoglobin 11.7 g/dl (12.0-16.0); Immature Granulocytes # (auto) 0.15 K/uL (0.01-0.20); Lymphocytes # (auto) 0.65 K/uL (1.20-3.40); Lymphocytes % (auto) 4.5 %; Mean Corpuscular Hemoglobin 30.6 pg (25.0-34.0); Mean Corpuscular Hgb Conc 33.3 g/dL (32.0-36.0); Mean Corpuscular Volume 91.9 fL (80.0-100.0); Mean Platelet Volume 9.9 fL (9.4-12.4); Monocytes # (auto) 1.55 K/uL (0.11-0.59); Monocytes % (auto) 10.6 %; Neutrophils % (auto) 83.7 %; Platelet Count 262 K/uL (130-400); RDW Coefficient of Variation 13.3 % (11.5-14.5); Red Blood Count 3.82 M/uL (4.20-5.40); White Blood Count 14.58 K/ul (4.8-10.8)
--- NOTE | 2024-08-11 12:18 | Orthopedic Progress Note ---
Date of Service August 11, 2024 Assessment & Plan (1) S/P total hip arthroplasty: Plan: Total hip precautions reviewed Weightbearing as tolerated with walker and max assistance PT/OT Pain control with p.o. medication DVT prophylaxis with CHIKA stockings and Aspirin Keep silverlon in place Patient will need transfer to a rehab facility due to failing her postoperative PT and OT. Case management is working on this currently. Follow-up at [facility] orthopedics as previously scheduled Abduction pillow use x 6 weeks With questions contact our clinic at [phone] Admission and Anticipated Discharge Date Admission Date: August 10, 2024 Subjective This 79-year-old female Is day 1 status post left total hip arthroplasty. Patient states she is doing very well as long as she is resting. She required maximum assistance when participating with physical therapy to ambulate. It is their recommendation that she go to a rehab facility. Currently she denies chest pain, shortness of breath, fever, chills, sweats, nausea, vomiting, diarrhea or difficulty voiding. She also has no complaint of numbness or tingling Review of Systems Review of Systems: All systems reviewed & are unremarkable except as noted in Subjective Physical Exam Physical Exam: Left hip; Outer dressing was removed. Silverlon is clean dry and intact. Patient is unable to perform active straight leg raise test. She is able to actively dorsi and plantarflex her foot. She has no discomfort with logroll testing. Patient tolerates light passive hip flexion near 80 degrees. She expe riences tension with light passive internal and external hip rotation. Her peripheral pulses are 2+. She is neurovascularly intact. Results & Data Vital Signs (Past 12 Hours) Vital Signs Temp Pulse Resp BP Pulse Ox O2 Del Method 08/11/24 11:18 36.7 C 69 16 131/82 94 Room Air 08/11/24 07:30 36.5 C 73 17 136/80 94 Room Air Diagnostic Findings Laboratory Results WBC 14.58 K/ul (4.8-10.8) H 08/11/24 07:27 RBC 3.82 M/uL (4.20-5.40) L 08/11/24 07:27 Hgb 11.7 g/dl (12.0-16.0) L 08/11/24 07:27 Hct 35.1 % (37.0-47.0) L 08/11/24 07:27 MCV 91.9 fL (80.0-100.0) 08/11/24 07:27 MCH 30.6 pg (25.0-34.0) 08/11/24 07: MCHC 33.3 g/dL (32.0-36.0) 08/11/24 07: RDW Std Deviation 45.0 fL (36.4-46.3) 08/11/24 07: RDW Coeff of Mitchell 13.3 % (11.5-14.5) 08/11/24 07: Plt Count 262 K/uL (130-400) 08/11/24 07: MPV 9.9 fL (9.4-12.4) 08/11/24 07: Immature Gran % (Auto) 1.0 % 08/11/24 07: Neut % (Auto) 83.7 % 08/11/24 07: Lymph % (Auto) 4.5 % 08/11/24 07: [place] % (Auto) 10.6 % 08/11/24 07:27 Eos % (Auto) 0.0 % 08/11/24 07:27 Baso % (Auto) 0.2 % 08/11/24 07:27 Neut # (Auto) 12.20 K/uL (1.40-6.50) H 08/11/24 07:27 Lymph # (Auto) 0.65 K/uL (1.20-3.40) L 08/11/24 07:27 [place] # (Auto) 1.55 K/uL (0.11-0.59) H 08/11/24 07:27 Eos # (Auto) 0.00 K/uL (0.00-0.50) 08/11/24 07:27 Baso # (Auto) 0.03 K/uL (0.00-0.20) 08/11/24 07:27 Immature Gran # (Auto) 0.15 K/uL (0.01-0.20) 08/11/24 07:27 Sodium 139 mmol/L (136-145) 08/11/24 07:27 Potassium 3.4 mmol/L (3.5-5.1) L 08/11/24 07:27 Chloride 102 mmol/L (98-107) 08/11/24 07:27 Carbon Dioxide 28 mmol/L (21-32) 08/11/24 07:27 Anion Gap 9 (3-11) 08/11/24 07:27 BUN 32 mg/dl (6-23) H 08/11/24 07:27 Creatinine 1.70 mg/dl (0.6-1.2) H 08/11/24 07:27 Est Cr Clr Drug Dosing 27.2 ml/min 08/11/24 07:27 eGFR 30.32 08/11/24 07:27 BUN/Creatinine Ratio 18.8 (10-20) 08/11/24 07:27 Glucose 117 mg/dl (70-99(Fasting)) H 08/11/24 07:27 Calcium 9.2 mg/dl (8.6-10.3) 08/11/24 07:27 Impressions Pelvis X-Ray 08/10/24 08:52 XR pelvis 1-2V routine HISTORY: 79 years-old Female In PACU - Post Surgical left hip arthroplasty COMPARISON: Pelvis radiograph 07/19/2024 TECHNIQUE: AP view the pelvis FINDINGS: Left hip arthroplasty demonstrates satisfactory alignment. Expected postoperative soft tissue swelling with deep tissue air. Surgical clip projects over the midline pelvis. [id number] right hip osteoarthritis. IMPRESSION: Unremarkable appearance of the left hip arthroplasty. ACT 112: Negative or not required by law. The above report was generated using voice recognition software. It may contain grammatical, syntax or spelling errors. Electronically signed by: Brad Poon M.D. 08/10/2024 9:23 AM
--- NOTE | 2024-08-11 12:33 | Discharge Summary ---
Date of Service August 11, 2024 Admission HPI Per Admitting Provider History of Present Illness (including history relevant to procedure): This 79-year-old female presents to the clinic today for preoperative history and physical. She complains of intermittent left hip up until 5 years ago began having difficulty weightbearing secondary to pain. She has been using a walker for assistance for the last year. She is currently at [facility] following recent hospitalization. Patient reports her goal is to return home her where she lives by herself. She states she may be at [facility] until her hip pain is resolved but is having a home evlauation on Wednesday. She has been in a wheelchair since discharge but is going to PT twice a day at [facility]. She complains of the most pain in her groin worse with walking. She denies numbness or tingling. Previously she had left hip cortisone injections with Dr. Jones. She is not taking anything for pain. She has tried Celebrex with no change in symptoms. Review Of Systems: A 12 point review of systems is performed is unremarkable except for those things stated in the HPI and past medical history. Past Medical History: Problems: Arthritis of left hip Nevus Elevated cholesterol Hypertension Dysplastic nevus Procedure History Procedure Procedure Date Comments Shave biopsy Mammogram Gallbladder Surgery - tubes tied. Rectocele Colonoscopy 08/10/2023 - Repeat colonoscopy in 5 years - A) Transverse colon polyp, polypectomyTubular adenomaB) Sigmoid colon polyp, polypectomyHyperplastic polypC) Rectal polyp, polypectomyTubular adenoma - - Preparation of the colon was fair. - One 5 mm polyp in the transverse colon, removed with a cold snare. Resected and retrieved. - One 4 mm polyp in the sigmoid colon, removed with a jumbo cold forceps. Resected and retrieved. - One 8 mm polyp in the rectum, removed with a cold snare. Resected and retrieved. Colonoscopy 08/05/2022 - COLO to cecum, diverticulosis, 3 polyps removed, fair prep. Colonoscopy 08/11/2019 - COLO to cecum, panddivertiulosis, 3 sigmoid polyps cold sneard, rectal polyp hot snared. Allergies and Sensitivities: Vasotec(Cough) Current Home Meds: (Last Updated 07/19 11:22) celecoxib 100 mg diclofenac topical (diclofenac 1% topical gel) diltiazem (diltiazem 240 mg/24 hours oral capsule, extended release) 240 mg PO Daily ergocalciferol (Vitamin D2) 50,000 Int_Unit PO 1tab daily for 8 weeks hydrochlorothiazide-triamterene (hydrochlorothiazide-triamterene 25 mg-37.5 mg oral tablet) 1 tab PO Daily magnesium sulfate/potass Cl/sodium sulf (Sutab oral tablet) PLEASE FOLLOW ENDOSCOPY CENTER PREP INSTRUCTIONS, NOT PACKAGE INSERT. magnesium sulfate/potassium sulfate/sodium sulfate (Suprep Bowel Prep Kit oral liquid) Take as directed. meloxicam ondansetron (Zofran 4 mg oral tablet) 4 mg PO bid PRN: as needed for nausea/vomiting MAY TAKE 1 TABLET 30 MINUTES PRIOR TO COLONOSCOPY PREP IF NEEDED FOR NAUSEA/VOMITING oxyBUTYnin 15 mg traMADol Initial Wt: 07/19 84.3 kg 185 lb Admission Exam Per Admitting Provider Physical Exam: (relevant to the procedure, including heart and lung evaluation) General: Alert and oriented x 3 with proper grooming and hygiene Eyes: Pupils are equal reactive to light with accommodation. Extraocular moods are intact Throat: Posterior oropharynx clear with absence of edema, erythema or exudate. Patient has upper and lower dentures Cardiac: Regular rate and rhythm no murmurs or gallops appreciated Lungs: Clear to auscultation throughout with no wheezing, rales or rhonchi Abdomen: Mildly obese, nondistended, nontender with NABS Extremities: Left hip; flexion is limited to 80 degrees, internal rotation to -5 degrees and external rotation to 15 degrees. Logroll test is positive. Stinch field test is positive. Straight leg raise test causes referred pain to the groin. Patient has tenderness to palpation over the groin area and over the trochanteric bursa. She is neurovascularly intact. Neuro: Cranial nerves II 12 intact no motor or sensory deficit Skin: Normal appearance with no open skin areas or discharge Principal Diagnosis Left hip osteoarthritis Discharge Exam Left hip; Outer dressing was removed. Silverlon is clean dry and intact. Patient is unable to perform active straight leg raise test. She is able to actively dorsi and plantarflex her foot. She has no discomfort with logroll testing. Patient tolerates light passive hip flexion near 80 degrees. She experiences tension with light passive internal and external hip rotation. Her peripheral pulses are 2+. She is neurovascularly intact. Discharge Data Allergies Allergy/AdvReac Type Severity Reaction Status Date / Time enalapril AdvReac Mild COUGH Verified 08/10/24 05:38 Procedures Performed Operation Date: 08/10/24 07:00 Actual Procedures p Left Total Hip Arthroplasty, Uncemented(Left) - Minor Diamond MD Hospital Course (1) S/P total hip arthroplasty: Patient had a slightly complicated stay following total hip arthroplasty. She is unable to perform a straight leg raise test with her left lower extremity. She required maximum assistance when ambulating with her walker. PT and OT recommended inpatient rehab because the patient lives on her own and is unsafe to go home with in-home health services. Patient understood this and is agreeable. Insurance Auth is pending for transfer to [facility] Total hip precautions reviewed Weightbearing as tolerated with walker and max assistance PT/OT Pain control with p.o. medication DVT prophylaxis with CHIKA stockings and Aspirin Keep silverlon in place Patient will need transfer to a rehab facility due to failing her postoperative PT and OT. Case management is working on this currently. Follow-up at [facility] orthopedics as previously scheduled Abduction pillow use x 6 weeks With questions contact our clinic at [phone] Total Time Total Time Spent Total Time Spent (In Minutes): 25 min s Discharge Plan Discharge Items Patient Disposition: Transfer Inpatient Rehab Fac Reason For Visit: Left Hip Osteoarthritis Discharge Diagnosis: s/p Left total hip arthroplasty Activity: As commented below Lifting: None Bathing: Keep incision dry Bathing Comment: May shower tomorrow Sexual Activity: Wait until after follow-up appointment Exercise/Sports: Wait until after follow-up appointment Driving/Machine Use: No driving until cleared by administrative support specialist Weightbearing: Left weightbearing Weightbearing Comment: as tolerate with walker and max assistance Non-emergency contact: Surgeon Call non-emergency contact if: you have any medication questions, your pain is not controlled, your temperature is above 101.5, your wound has increased drainage and your wound pain has increased Follow-up/Referrals: Ely Bain MD [Primary Care Provider] - Diet: Regular Addtl Attending Provider Instructions: Post-operative Instructions Dear Patient and Family/Friends, Before you are discharged from the hospital, it is important to know what to expect when you get home after surgery. To that end, we have created this sheet of discharge instructions which covers many commonly asked questions. Make sure you go through this sheet in its entirety with your nurse before you are discharged. Please note that we will go over the specifics of your surgery and recovery when you return for your first post-operative visit. Sincerely, Dr. Diamond Pain Expect to be in a fair amount of pain after surgery. Remember, our goal is not to eliminate your pain, but to make it tolerable. It is a good idea to stay ahead of your pain by taking the medications you were prescribed once you get home. Typically, the pain starts improving 3-7 days after surgery. You should start weaning off the narcotic pain medication (oxycodone, hydrocodone, hydromorphone, morphine) as soon as your pain improves. Please call our office if your pain is not adequately controlled. Ice Ice your operative site at least 5 times a day for 15-30 minutes at a time. Make sure you have a thin cloth between the ice or cooling unit and your skin to p revent baker bite. This is especially important if you received a nerve block. Continue icing your operative site for the first 5-7 days after surgery, then as needed. Diet/Nausea/Vomiting Start by drinking clear liquids and eating crackers. If you can tolerate this, then you may resume your normal diet. If you feel nauseated or vomit, take Zofran/ondansetron (if prescribed). Please call our office if you have intractable nausea or vomiting, or, if after hours, you may go to the Emergency Room for help. Constipation Constipation is a common side effect of narcotic pain medication. If you have not had a bowel movement within 2 days after surgery, we recommend purchasing an over the counter laxative such as Milk of Magnesia, Dulcolax, or Miralax from a local pharmacy, and taking it as instructed. Call our clinic if any questions. Nerve block The anesthesia team sometimes places a nerve block to help with post-operative pain control. This results in significant numbness and inability to move the extremity. The nerve block usually wears off in 8-12 hours, but sometimes can last up to 24 hours. Please call our office if you are still unable to move your extremity after 24 hours, unless you received a pain pump to take home. Nerve blocks typically wear off quickly, so start taking pain medication as soon as you start feeling soreness near your surgical site. Weight bearing and Range of Motion. Do not bear any weight through your operative extremity immediately after surgery. If you had upper extremity surgery, do not lift anything with that arm. If you are in a knee brace, keep it locked in place until your follow-up. We will discuss your weight bearing, range of motion, and lifting restrictions in detail at your first post-operative appointment. Continuous Passive Motion (CPM) Machine If you were prescribed a CPM machine, it will start after your first post- operative appointment, at which time we will give you instructions on the range of motion settings and duration of treatment Physical therapy You will be given a prescription for physical therapy or 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 therapy at your first post-operative appointment. Typically, patients start therapy within 1 week of surgery Wound care and showering We will inspect your wound at your first post-operative visit, and may do a dressing change at that time. Most patients will be in a water-proof dressing that is removed 14 days after surgery. It is normal to see some dried blood on the dressing. Do not remove your dressing, paper strips or sutures yourself unless you are given permission. Showering is allowed the day after surgery. Do not scrub or remove any dressings. The wound should not be submerged underwater (i.e. in a bathtub or pool) until 4 weeks after surgery CHIKA stockings If you were given white stockings, these are to be worn at all times except to shower (on both legs) for the first 2 weeks after surgery. Driving You may not drive while taking narcotic pain medication or while in a cast, splint, sling or brace. You, the patient, need to make the final determination about when you are safe to drive, however, the earliest you may consider driving after surgery is below: Hand/Wrist/Elbow Surgery: 3 days Shoulder Surgery: 2 weeks Hip,/Knee/Ankle Surgery: 4 weeks Fracture repair: 6 weeks Return to Work Your return to work depends on what surgery was done and what type of work you do. Please bring any paperwork your employer needs completed to your first post-operative visit. Also, bring a description of your job duties, as this helps us to understand what risks you may face at work. Travel Avoid long distance travel (greater than 1 hour) in airplanes and cars for the first 6 weeks after surgery. If you must travel, you need to have a Doppler ultrasound done before you travel to rule out a blood clot in your legs. Follow-up You should have a follow-up appointment already scheduled 1-2 days after surgery. If not, please contact our office to make this appointment before you leave the hospital. When to call the office It is normal to have swelling and bruising in the limb that was operated on. This will improve with time. It is also normal to have fevers for the first 2 days after surgery. Reasons you should call your doctor include: Uncontrolled pain; Nausea, vomiting, or constipation that does not improve with medication; Fevers over 101.5, chills, sweats; Drainage or bleeding from the wound; Foul odor; Spreading areas of redness; Any other concerns. Contact Information Please call Dr. Diamond's office at [phone] with any concerns. Pending Studies at Discharge: No Stand-Alone Forms: My [facility] Skilled Items Patient informed of condition?: Yes DNR: No Discharge Level of Care: Skilled Communicable Disease: No Discharge Prognosis: Stable Lines: None Urinary Catheter: No Medications and DC Order Prescriptions: New aspirin 81 mg Tablet,Delayed Release (Dr/Ec) 81 mg PO BID 30 Days Qty: 60 0RF oxycodone 5 mg Tablet 5 - 10 mg PO Q4H MDD Ongoing Tx. Max 6/day PRN (Reason: Post op pain control) Qty: 28 0RF Continued furosemide 20 mg tablet 20 mg PO DAILY ergocalciferol (vitamin D2) 1,250 mcg (50,000 unit) capsule 50,000 unit PO Q7D Rx Instructions: every Wednesday rosuvastatin [Crestor] 10 mg tablet 10 mg PO HS meloxicam 15 mg Tablet 15 mg PO DAILY acetaminophen 325 mg Tablet 650 mg PO Q6H PRN (Reason: pain) Qty: 30 0RF Discharge Orders: Discharge Order (Routine); Ordered 08/11/24 Ordered By: Dave Pennington Admission Data Admit Date/Time: 08/10/24 08:53 Attending Provider: Minor Diamond Admit Provider: Minor Diamond Primary Care Provider: Ely Bain Other Providers: [facility]; [facility]
--- NOTE | 2024-08-12 08:34 | Orthopedic Progress Note ---
Date of Service August 12, 2024 Assessment & Plan (1) S/P total hip arthroplasty: Plan: PT/OT this morning. Yesterday She required maximum assistance when ambulating with her walker. PT and OT recommended inpatient rehab because the patient lives on her own and is unsafe to go home with in-home health services. Patient understood this and is agreeable. appreciate case management assistance in this regard. Patient is cleared to discharge to rehab facility once this is arranged through case management. Posterior hip precautions Weightbearing as tolerated with walker and max assistance Pain control with p.o. medication. Ice the wound liberally DVT prophylaxis with CHIKA stockings and Aspirin Keep silverlon in place Follow-up at [facility] orthopedics as previously scheduled Abduction pillow use x 6 weeks With questions contact our clinic at [phone] Admission and Anticipated Discharge Date Admission Date: August 10, 2024 Subjective This 79-year-old female Is day 2 status post left total hip arthroplasty. Patient reports she is feeling well this morning. She says she got a good night sleep last night. She says she has minimal pain in her left hip this morning. She denies chest pain, shortness of breath, fever, chills, sweats, nausea, vomiting, diarrhea or difficulty voiding. She also has no complaint of numbness or tingling Physical Exam Physical Exam: On exam she is resting comfortably in bed in no acute distress. Denies numbness or tingling in her feet. She wiggles her toes. Silverlon Dressing is intact. Through the window there is a little bit of bloody drainage. Results & Data Vital Signs (Past 12 Hours) Vital Signs Temp Pulse Resp BP BP Pulse Ox O2 Del Method 08/12/24 07:30 36.9 C 80 18 114/71 94 Room Air 08/12/24 00:24 154/85 H 08/11/24 22:23 36.7 C 77 14 171/89 H 93 Room Air 08/11/24 21:25 Room Air
--- NOTE | 2024-08-12 21:22 | Hospitalist Consultation ---
"Date of Consultation August 12, 2024 Assessment & Plan (1) S/P total hip arthroplasty: (2) Degenerative joint disease of left hip: (3) Intermittent confusion: Plan Intermittent Confusion | Hospital Delirium -Chart review shows prior history of hospital delirium on prior admissions -Vitals stable, normotensive and afebrile -Will obtain CBC, CMP in a.m. to help rule out additional causes of her delirium -Cr 1.7 on 08/11, baseline appears to be ~1.0 -Encouraged patient to increase PO fluid intake, Purewick draining concentrated urine -Avoid opioid medications, will hold currently ordered PRN benadryl which could exacerbate confusion. Will also remove scopolamine patch as this could be contributing factor -Reorient patient as needed, encourage patient to avoid naps during the day to maintain normal sleep/wake cycles Bilateral Lower Extremity Pain -Pain with palpation of bilateral calves -Unsure if this is new vs chronic, in setting of recent surgery will order venous duplex to rule out DVT S/P Left Total Hip Arthroplasty -POD #2 -Management per orthopedics Diet: Heart Healthy Code Status: Full Code Supervising Physician Co-Signing Physician Notes Attending addendum: I have physically seen this patient, have supervised the medical residents activities, and agree with the H&P unless as otherwise noted. Assessment and Plan: Intermittent confusion/hospital delirium/postop day 2 left MANOJ- History of hospital delirium on previous admissions Metabolic workup including CBC with differential, chemistry profile and ma gnesium level, and urinalysis, urine culture and sensitivity Contributing factors including not limited to: Acute kidney injury with dehydration, scopolamine patch, narcotic pain medications, Benadryl Encourage fluid intake, pure wick catheter as noted Address any further abnormalities as needed [facility] hospitalist service will follow along during hospitalization History of Present Illness Attending Physician: Mnior Diamond MD History of Present Illness Sandra Pastor is a 79 year-old female with a past medical history significant for osteoarthritis of the left hip, ambulatory dysfunction, HTN, and greater trochanteric pain syndrome. She is POD #2 following left MANOJ. Hospitalist service was consulted due to concern of intermittent confusion. Upon chart review, patient has experienced hospital delirium during her prior hospital admissions this year. At bedside evaluation, patient is currently alert and oriented to self/place/time. Patient states that she had some difficulty sleeping the last night after sleeping most of the day prior. She recalls that her son visited her and when he entered the room, she had a blanket over her head which concerned them. Patient states she does not remember doing this. Patient denies chest pain or shortness of breath, states she is eating and drinking like normal. Denies constipation or abdominal pain. Endorses some discomfort at her rear-end from laying in the bed. Allergies Allergy/AdvReac Type Severity Reaction Status Date / Time enalapril AdvReac Mild COUGH Verified 08/10/24 05:38 Home Medications Medication Instructions Recorded Confirmed Type ergocalciferol (vitamin D2) 1,250 50,000 unit PO Q7D 07/03/24 08/10/24 History mcg (50,000 unit) capsule rosuvastatin 10 mg tablet (Crestor) 10 mg PO HS 07/03/24 08/10/24 History acetaminophen 325 mg tablet 650 mg (2 x 325 mg) PO Q6H PRN 07/14/24 08/10/24 Rx pain #30 tabs furosemide 20 mg tablet 20 mg PO DAILY 08/08/24 08/10/24 History meloxicam 15 mg tablet 15 mg PO DAILY 08/10/24 08/10/24 History aspirin 81 mg tablet,delayed 81 mg PO BID DVT prophylaxis 30 08/11/24 Rx release days #60 tabs oxycodone 5 mg tablet 5 - 10 mg (1 - 2 x 5 mg) PO Q4H 08/11/24 Rx PRN Post op pain control #28 tabs Patient History Medical History Hard of hearing does not wear hearing aids Impaired fasting glucose HgbA1C 05/09/24: 5.8% Urinary incontinence Hx of colonic polyps Paresthesia of right foot Lower extremity edema Ambulatory dysfunction Uses walker or wheelchair prn Hip arthritis Hypertension Hyperlipidemia Surgical History Hx of gynecological procedure Rectocele repair Hx of right cataract extraction History of colonoscopy History of left cataract extraction History of bilateral tubal ligation History of cholecystectomy Family History Brother Prostate cancer Other No family history of adverse response to anesthesia Denies family history of Ovarian cancer Myocardial infarction Breast cancer Colorectal cancer Social History Smoking Status: Never smoker Tobacco Type: Cigarettes Age Started Using Tobacco: 13; Age Quit Using Tobacco: 64; packs per day: 1.25; Smoking End Date: Quit many years ago; Second Hand Exposure: Yes (hx growing up); Do You Dip or Chew Tobacco: No; Tobacco Cessation Education Requested by Patient: No Hx Alcohol Use: No Hx Substance Use: No Preferred Language: Azeri Communication Ability: Effective Visual Impairment: No Limitations Hearing Ability: Use of Hearing Aid Manager Data Warehouse Required: No Beliefs That Will Affect Care: None marital status: Current Living Situation: Alone current 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 status: retired 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, [employer] Other Information That Helps Us Care for You: No Feels Safe at Home: Yes Safety Concerns: Feels Safe At This Time Childhood Exposure to Second-Hand Smoke: Yes Diet: low salt Diet Comment: watches her salt intake, does this by choice caffeine: Yes during the past year weight has: remained stable Dental Care, Regularly: No Physical Activity Frequency: Daily Physical Activity Frequency Comment: walking about 30 min a day Seatbelt Use: always Sunscreen Use: No Assistive Devices: Cane, Walker and Wheelchair Assistive Devices Comment: reading glasses; has hearing aids, doesn't wear often Review of Systems Review of Systems: As per above Physical Exam Constitutional: WD/WN, vitals as above Eyes: + anicteric sclerae; no conjunctival abn ormality ENMT: Ears: no external ear abnormality Nose: no external nose abnormality Moist mucous membranes Respiratory: normal respiratory effort, lungs clear to auscultation Cardiovascular: Rate/Rhythm: regular rate and regular rhythm No lower extremity edema Gastrointestinal (Abdomen): Inspection/Auscultation: abdomen normal to inspection; abdomen not distended Musculoskeletal: Left hip bandaged. Able to wiggle toes on command. Pain with palpation of bilateral calves Skin: no rashes, warm and dry Psychiatric: A+Ox3, euthymic affect Results & Data Results & Data Vital Signs (Past 12 Hours) Vital Signs Temp Pulse Resp BP BP Pulse Ox O2 Del Method 08/12/24 20:44 36.8 C 73 18 109/67 93 Room Air 08/12/24 14:58 36.5 C 66 16 112/72 94 Room Air 08/12/24 11:00 36.8 C 75 20 143/77 H 96 Room Air Resident Activity Tracking Resident Involvement: Resident Care Provided Care Provided: Adult Hospital Medicine"
[2024-08-13 07:05] LABS: Basophils # (auto) 0.02 K/uL (0.00-0.20); Basophils % (auto) 0.2 %; Eosinophils # (auto) 0.27 K/uL (0.00-0.50); Eosinophils % (auto) 2.7 %; Hemoglobin 11.8 g/dl (12.0-16.0); Immature Granulocytes # (auto) 0.11 K/uL (0.01-0.20); Immature Granulocytes % (auto) 1.1 %; Lymphocytes # (auto) 0.98 K/uL (1.20-3.40); Mean Corpuscular Hemoglobin 31.2 pg (25.0-34.0); Mean Corpuscular Hgb Conc 33.7 g/dL (32.0-36.0); Mean Corpuscular Volume 92.6 fL (80.0-100.0); Mean Platelet Volume 9.8 fL (9.4-12.4); Monocytes # (auto) 0.93 K/uL (0.11-0.59); Monocytes % (auto) 9.5 %; Neutrophils # (auto) 7.52 K/uL (1.40-6.50); Neutrophils % (auto) 76.5 %; Platelet Count 239 K/uL (130-400); RDW Coefficient of Variation 13.6 % (11.5-14.5); RDW Standard Deviation 46.5 fL (36.4-46.3); Red Blood Count 3.78 M/uL (4.20-5.40); White Blood Count 9.83 K/ul (4.8-10.8)
[2024-08-13 07:24] LABS: Anion Gap 5 (3-11); BUN Creatinine Ratio 33.8 (10-20); Blood Urea Nitrogen 46 mg/dl (6-23); Calcium 8.8 mg/dl (8.6-10.3); Carbon Dioxide 32 mmol/L (21-32); Chloride 104 mmol/L (98-107); Glucose 88 mg/dl (70-99(Fasting)); Potassium 3.6 mmol/L (3.5-5.1); Sodium 141 mmol/L (136-145)
[2024-08-13 07:28] LABS: Alanine Aminotransferase < 3 U/L (7-52); Albumin Globulin Ratio 1.1 (0.9-2); Albumin Level 2.9 gm/dl (3.4-5.0); Alkaline Phosphatase 48 U/L (34-104); Aspartate Aminotransferase 17 U/L (13-39); Bilirubin,Total 0.6 mg/dl (0.2-1.0); Globulin 2.6 gm/dl (2.5-4.0); Total Protein 5.5 gm/dl (6.0-8.3)
--- NOTE | 2024-08-13 09:36 | Orthopedic Progress Note ---
Date of Service August 13, 2024 Assessment & Plan (1) S/P total hip arthroplasty: Plan: Appreciate internal medicine hospitalist service management of her confusion and overall medical condition. PT/OT this morning. appreciate case management assistance. Patient is cleared to discharge to rehab facility once this is arranged through case management. Posterior hip precautions Weightbearing as tolerated with walker and max assistance Pain control with p.o. medication. Ice the wound liberally DVT prophylaxis with CHIKA stockings and Aspirin Keep silverlon in place Follow-up at [facility] orthopedics as previously scheduled Abduction pillow use x 6 weeks With questions contact our clinic at [phone] Admission and Anticipated Discharge Date Admission Date: August 10, 2024 Subjective This 79-year-old female Is day 3 status post left total hip arthroplasty. Yesterday she was seen by internal medicine hospitalist service for confusion. Continues to struggle some with physical therapy getting out of bed. She feels like her mental status is improving every day much better than it was the first day after surgery. She denies chest pain, shortness of breath, fever, chills, sweats, nausea, vomiting, diarrhea or difficulty voiding. She also has no complaint of numbness or tingling Physical Exam Physical Exam: On exam she is sitting comfortably at the bedside ready due to her. Sickle therapy in no acute distress. Silverlon Dressing is intact. Through the window there is a little bit of bloody drainage. distally neurovascularly intact. Results & Data Vital Signs (Past 12 Hours) Vital Signs Temp Pulse Resp BP Pulse Ox O2 Del Method 08/13/24 07:39 36.7 C 73 16 131/77 94 Room Air
--- NOTE | 2024-08-13 11:50 | Ultrasound Report ---
EXAM: US Duplex Bilateral Lower Extremities Veins INDICATION: Pain following recent hip surgery. TECHNIQUE: Real-time duplex ultrasound scan of the bilateral lower extremity veins integrating B-mode two-dimensional vascular structure, Doppler spectral analysis, color flow Doppler imaging and compression. COMPARISON: Left 05/31/2024 FINDINGS: Right deep veins: No DVT in the right common femoral, femoral or popliteal veins. The veins demonstrate normal color flow, are normally compressible, with normal phasic flow and/or augmentation response. Deep venous structures visualized in the calf are patent. Right superficial veins: No abnormality noted. No thrombus in the visualized right great saphenous vein. Left deep veins: No DVT in the left common femoral, femoral or popliteal veins. The veins demonstrate normal color flow, are normally compressible, with normal phasic flow and/or augmentation response. The posterior tibial vein in the calf is poorly evaluated according to the technologist and not assessed. Left superficial veins: No abnormality noted. No thrombus in the visualized left great saphenous vein. Soft tissues: No abnormality noted. IMPRESSION: 1. The left calf veins cannot be assessed. 2. No deep venous thrombosis of either lower extremity from the groin to the knee. ACT 112: Negative or not required by law. Electronically signed by Rani Jimenez 08-13-2024 11:50 AM
--- NOTE | 2024-08-13 12:56 | Hospitalist Progress Note ---
"Date of Service August 13, 2024 Assessment & Plan (1) Intermittent confusion: Plan: Intermittent Confusion | Hospital Delirium -Chart review shows prior history of hospital delirium on prior admissions. Delirum is much improved. - KASSI but Cr is improving, now 1.36 - AM BMP -Encouraged patient to increase PO fluid intake, Purewick draining concentrated urine -Avoid opioid medications, d/c PRN benadryl and scopolamine patch as this could be contributing factor -Reorient patient as needed, encourage patient to avoid naps during the day to maintain normal sleep/wake cycles (2) S/P total hip arthroplasty: Plan: S/P Left Total Hip Arthroplasty -POD #3 -Management per orthopedics Awaiting placement (3) Bilateral lower extremity pain: Plan: Bilateral Lower Extremity Pain -Pain with palpation of bilateral calves -Unsure if this is new vs chronic - B/L LE doppler without DVT calf pain has improved (4) KASSI (acute kidney injury): Plan Dispo: continued inpatient stay, trend AM BMP Thank you for allowing us to participate in the care of this patient, please reach out with any questions or concerns. Medicine will continue to follow. Admission and Anticipated Discharge Date Admission Date: August 10, 2024 Supervising Physician Co-Signing Physician Notes Attending Attestation - Chart reviewed, care plan d/w DESIREE San. I agree w/ the bacon components of her documentation with the following addition - KASSI -- on POD #1 her Cr was 1.7, now 1.36 Baseline Cr 0.9 to 1 KASSI likely 2nd to intra-op hypotension as BPs were low on day of surgery. Repeat a BMP in am to ensure ongoing recovery. Angelo Downing MD Subjective Patient seen lying in bed - recalls being confused and hallucinating prior. Now is alert and oriented to the situation denies pain in her lower legs currently telling me that she has to use the bathroom encouraged to increase PO fluids Review of Systems Review of Systems: All systems reviewed & are unremarkable except as noted in Subjective Physical Exam Physical Exam: General: NAD, VS as above Resp: normal respiratory effort, lungs clear to auscultation CV: RRR, no murmur, Abd: normal bowel sounds, non tender, no hepatosplenomegaly Extremities: left hip dressing c/d/i. jocelin hose placed in proper position, able to wiggle toes bilaterally. No calf tenderness today Neuro: A&O x3, Skin: intact, no lesions noted Results & Data Results & Data Vital Signs (Past 12 Hours) Vital Signs Temp Pulse Resp BP Pulse Ox O2 Del Method 08/13/24 07:39 98.1 F 73 16 131/77 94 Room Air Laboratory Results cbc and cmp reviewed PG Care Time/CCT Total # of Minutes Spent Total Time Spent with Patient: Total time spent is greater than 50% in coordination of care (as documented) at patient's floor/unit and/or counseling patient: Coding Level of Care Code 64189 SUB INP/OBS CARE 2/35MIN Diagnoses Intermittent confusion R41.0 S/P total hip arthroplasty Z96.649 Bilateral lower extremity pain M79.604; M79.605 KASSI (acute kidney injury) N17.9"
--- NOTE | 2024-08-14 01:23 | Billing Data ---
Date of Service August 14, 2024 Coding Level of Care Code 62897 IN/OBS CONSULT LVL 3,45M
[2024-08-14 07:58] VITALS: BP 127/78; PULSE 67; RESP 18; TEMP 97.3; O2SAT 96
[2024-08-14 08:11] LABS: BUN Creatinine Ratio 33.3 (10-20); Calcium 8.9 mg/dl (8.6-10.3); Creatinine Clr Calc Pharmacy 40.5 ml/min; Potassium 3.5 mmol/L (3.5-5.1)
[2024-08-14] MEDS: ERGOCALCIFEROL 1250 MCG (50,000 UNITS) CAP PO SCH (08:38)
--- NOTE | 2024-08-14 10:45 | Orthopedic Progress Note ---
Date of Service August 14, 2024 Assessment & Plan (1) S/P total hip arthroplasty: Plan: Patient was approved to [facility] care discharge today. Appreciate internal medicine hospitalist service management of her confusion and overall medical condition. Continue with physical therapy Posterior hip precautions Weightbearing as tolerated with walker and max assistance Pain control with p.o. medication, tylenol and celebrex, and ice Avoid opioid use d/t delirium DVT prophylaxis with CHIKA stockings and Aspirin 81mg BID x 6 weeks from surgical date Keep silverlon in place, Nursing may reinforce if needed Follow-up at [facility] orthopedics as previously scheduled Abduction pillow use x 6 weeks From surgical date With questions contact our clinic at [phone] Admission and Anticipated Discharge Date Admission Date: August 10, 2024 Subjective Patient seen and examined at bedside. She says that she is doing very well. Her hip feels good. She has been working with PT and able to get out of bed and walk.Denies any shortness of breath or chest pains. Physical Exam Physical Exam: General: Pt laying in hospital bed AA&O, in NAD, calm and cooperative during exam Lower Extremity: Dressing in tact and not saturated. Pt has full ROM of ankle and all 5 digits. Pt has 4/5 strength with resisted DF/PF. Unable to do a straight leg raise. Calf supple and non tender. NVI with sensation to light touch distally and good distal pulses present. Results & Data Vital Signs (Past 12 Hours) Vital Signs Temp Pulse Resp BP Pulse Ox O2 Del Method 08/14/24 07:56 36.3 C L 67 18 127/78 96 Room Air
--- NOTE | 2024-08-14 11:00 | Hospitalist Progress Note ---
"Date of Service August 14, 2024 Assessment & Plan (1) Intermittent confusion: Plan: Intermittent Confusion | Hospital Delirium -Chart review shows prior history of hospital delirium on prior admissions. Delirum is much improved. - KASSI but Cr is improving, now 1.36 - KASSI has resolved -Encouraged patient to increase PO fluid intake, Purewick draining concentrated urine -Avoid opioid medications, d/c PRN benadryl and scopolamine patch as this could be contributing factor -Reorient patient as needed, encourage patient to avoid naps during the day to maintain normal sleep/wake cycles (2) S/P total hip arthroplasty: Plan: S/P Left Total Hip Arthroplasty -POD #3 -Management per orthopedics Awaiting placement (3) Bilateral lower extremity pain: Plan: Bilateral Lower Extremity Pain -Pain with palpation of bilateral calves -Unsure if this is new vs chronic - B/L LE doppler without DVT calf pain has improved (4) KASSI (acute kidney injury): Plan: now resolved Plan Dispo: medically stable, agree with discharge today. Thank you for allowing us to participate in the care of this patient, please reach out with any questions or concerns. Medicine will Sign off. Admission and Anticipated Discharge Date Admission Date: August 10, 2024 Supervising Physician Co-Signing Physician Notes Attending Attestation - Chart reviewed, care plan d/w DESIREE San. I agree w/ the bacon components of her documentation. KASSI resolved; Cr now 1.1 (peak 1.7). Angelo Downing MD Subjective patient seen resting in bedno further episodes of melena sedation or confusion. She is eager to go to rehab Happy to hear that her kidney function has improved Review of Systems Review of Systems: All systems reviewed & are unremarkable except as noted in Subjective Physical Exam Physical Exam: General: NAD, VS as above Resp: breathing unlabored CV: well-perfused Extremities: left hip dressing c/d/i. , able to wiggle toes bilaterally. No calf tenderness today Neuro: A&O x3, Skin: intact, no lesions noted Results & Data Results & Data Vital Signs (Past 12 Hours) Vital Signs Temp Pulse Resp BP Pulse Ox O2 Del Method 08/14/24 07:56 97.3 F L 67 18 127/78 96 Room Air Laboratory Results BMP reviewed PG Care Time/CCT Total # of Minutes Spent Total Time Spent with Patient: Total time spent is greater than 50% in coordination of care (as documented) at patient's floor/unit and/or counseling patient: Coding Level of Care Code 02190 SUB INP/OBS CARE 2/35MIN Diagnoses Intermittent confusion R41.0 S/P total hip arthroplasty Z96.649 Bilateral lower extremity pain M79.604; M79.605 KASSI (acute kidney injury) N17.9"
== END 2024-08-14 13:55 | DRG 470 ==
LOC: ASU 05:08 → 3N 08:53 → INTOOBSV 08:53

== ENCOUNTER 2025-03-25 18:48 | Inpatient (IN) ==
[2025-03-25] MEDS: SODIUM CHLORIDE 0.9% 1,000 ML IV SCH (19:37)
--- NOTE | 2025-03-25 19:48 | CT Scan Report ---
EXAMINATION: Abdomen and pelvis CT without CLINICAL HISTORY: Vomiting PRIORS: Pelvis plain film 01/26/2025 TECHNIQUE: Contiguous axial images were obtained through the abdomen and pelvis without the use of intravenous contrast. Sagittal and coronal reformations are supplied. FINDINGS: Lung bases unremarkable. Evaluation of solid organs is limited without the use of intravenous contrast. Allowing for this, the liver, pancreas, spleen, stomach, and adrenals are morphologically unremarkable. A small to moderate hiatal hernia is present. Advanced atherosclerotic disease of the abdominal aorta is noted. Left total hip arthroplasty create significant beam hardening artifact diminishing image quality. Advanced diverticulosis of the transverse, descending and sigmoid colon present. No pericolonic inflammatory change. No dilated loops of bowel or obstruction. Appendix is normal. No significant amount of formed stool in the colon. Urinary bladder distends normally. Atrophic uterus is present. No free fluid in the pelvis. No extraluminal gas, ascites or adenopathy. Mild diverticulosis of the ascending colon. Kidneys are symmetric. No hydronephrosis. In bone windows, moderate osseous demineralization. Advanced degenerative change throughout the lumbar spine. No high-grade compression fracture. IMPRESSION: 1. No CT evidence of an acute abdominal or pelvic abnormality. 2. Moderate to advanced diverticulosis of the entire colon with no pericolonic inflammatory change. 3. Small to moderate hiatal hernia. 4. Advanced atherosclerotic disease of the abdominal aorta. Electronically signed by Mary Anders 03-25-2025 7:48 PM
[2025-03-25 19:49] LABS: Alanine Aminotransferase 11.0 U/L (7-52); Alkaline Phosphatase 76.0 U/L (34-104); Anion Gap 7.0 (3-11); Blood Urea Nitrogen 13.0 mg/dl (6-23); Calcium 9.6 mg/dl (8.6-10.3); Carbon Dioxide 25.0 mmol/L (21-32); Chloride 106.0 mmol/L (98-107); Creatinine Clr Calc Pharmacy 52.1 ml/min; Glucose 123.0 mg/dl (70-99(Fasting)); Magnesium 1.8 mg/dl (1.7-2.4); Potassium 4.0 mmol/L (3.5-5.1); Sodium 138.0 mmol/L (136-145)
[2025-03-25 19:57] LABS: Albumin Globulin Ratio 1.2 (0.9-2); Bilirubin,Total 0.6 mg/dl (0.2-1.0); Globulin 3.0 gm/dl (2.5-4.0); Total Protein 6.7 gm/dl (6.0-8.3)
[2025-03-25 20:05] LABS: Thyroid Stimulating Hormone 1.452 uIu/ml (0.300-4.500)
--- NOTE | 2025-03-25 20:08 | Emergency Department Note ---
Impression & Plan Vomiting, Fatigue, Cerebellar stroke, NPH (normal pressure hydrocephalus) ED Provider Note NAME: AJITH KEITH AGE: 79 SEX: Female INFORMANT: Patient and daughter ED PROVIDER(S): Delfin Amado MD CHIEF COMPLAINT: Vomiting PLAN: Disposition: Admitted Outpatient prescription management: none Referral: None MEDICAL DECISION MAKING: Patient presented because of an episode of vomiting. She had received Zofran prehospital and is feeling much better at this point in time. Family did present and we discussed the patient's recent and MRI. Patient was found to have suggestions of NPH as well as possible acute cerebellar stroke. Patient's CBC and chemistry panel were unremarkable. Cardiac troponin was negative. Urinalysis did not reveal any signs of infection. Patient underwent CT imaging of the abdomen pelvis and this was negative for acute process. In light of the patient's symptoms and findings on recent outpatient MRI further evaluation and management in the hospital is felt to be appropriate. Patient and daughter felt comfortable. Consultation was made with Dr. Young Arthur of the [facility] service. Patient was evaluated in the ER for further management. Care/management discussed with: manager sap Level of care consideration(s): After review of the information above and other included data, I feel the patient requires escalation of care to admission Triage Nursing notes: reviewed and agree them. Vital Signs: reviewed and remarkable for no significant abnormalities Additional History obtained from: Patient's daughter Chronic Medical/Social Conditions affecting care: Dementia, high cholesterol Prior/ Outside/ External records reviewed: PCP note from 02/09 reviewed. Ordered MRI to evaluate for NPH. Differential Diagnosis: Infection, dehydration, metabolic abnormality, hypo/hyperglycemia, electrolyte disturbance, anemia, hypoxia, cardiac sources, intracerebral event, toxicologic, neurologic, as well as other pathologies. Diagnostics, independently interpreted by me: ECG: Twelve-lead ECG reveals a normal sinus rhythm at [address] elevation. No ST depression. Cardiac Monitoring: Cardiac monitoring ordered by me: The patient was placed on continuous cardiac monitoring and observed. It revealed a normal sinus rhythm at 70 beats per minute without ectopy or evidence of dysrhythmia. Medical decision rules: none Imaging studies: Chest x-ray. Findings: A chest x-ray was performed and revealed no pneumothorax, effusion, infiltrate, pulmonary edema, free air under the diaphragm, or wide mediastinum. Impression: No acute disease. HPI: 79 year old Female arrives for evaluation of vomiting. This started this afternoon and is currently resolved. Patient was not feeling well and stated she felt generally weak and fatigued. She was contacted by her home health. Nurse did evaluate the patient. She did have vomiting. She was referred to the ER for evaluation. Patient was given Zofran prehospital. She denies any pain. Family presents to ER and notes that the patient has had some confusion but has baseline dementia. She was recently seen by primary and outpatient imaging was ordered of the brain. Patient was found to have a cerebellar stroke and findings consistent with NPH. Pt denies LOC, headache, fevers, chills, diaphoresis, visual changes, neck pain, chest pain, breathing difficulties,abdominal pain, back pain, melena, hematochezia, urinary symptoms, rash, or other complaints.. PAST MEDICAL HISTORY: See Below, hypertension PAST SURGICAL HISTORY: See Below, SOCIAL HISTORY: See Below, retired HOME MEDICATIONS: See Below ALLERGIES: See Below VITALS: See Below PHYSICAL EXAMINATION: GENERAL: Awake, alert, [id number], in no distress HENT: Normocephalic, atraumatic. Oropharynx unremarkable. EYES: Normal conjunctiva. Sclera non-icteric. NECK: Inspection normal. Non-tender. Supple. No nuchal rigidity. FROM. No masses. RESPIRATORY: Clear to auscultation. No wheezes. No rales. Normal respiratory effort. CARDIAC: Normal rate. Normal rhythm. No murmurs. No rubs. Extremities warm and well perfused. Pulses equal. No JVD. GI: Soft, non-distended. No tenderness to palpation. No rebound or guarding. No masses. RECTAL: Deferred. MUSCULOSKELETAL: Atraumatic. Chest examination reveals no tenderness. The back is symmetrical on inspection without obvious abnormality. There is no CVA tenderness to palpation. No joint edema. LOWER EXTREMITIES: Calves are equal size bilaterally and non-tender. 1-2+ edema. No discoloration. NEURO: Oriented. Normal sensorium. No focal sensory or motor deficits noted. SKIN: No rash or jaundice noted. PROCEDURES: none CRITICAL CARE: none OBSERVATION NOTE: none Past Med/Surg History Problem List Hypomagnesemia Gait abnormality NPH (normal pressure hydrocephalus) (Acute) Cerebellar stroke (Acute) Fatigue (Acute) Vomiting (Acute) Urinary incontinence Impaired fasting glucose HgbA1C 05/09/24: 5.8% Hypertension S/P total hip arthroplasty Medical History Degenerative joint disease of left hip Hard of hearing Hx of colonic polyps Paresthesia of right foot Lower extremity edema Ambulatory dysfunction Hip arthritis Hyperlipidemia Surgical History Status post left hip replacement Hx of gynecological procedure Hx of right cataract extraction History of colonoscopy History of left cataract extraction History of bilateral tubal ligation History of cholecystectomy Family History Brother Prostate cancer Other No family history of adverse response to anesthesia Denies family history of Ovarian cancer Myocardial infarction Breast cancer Colorectal cancer Social History Smoking Status: Former smoker Tobacco Type: Cigarettes Age Started Using Tobacco: 13; Age Quit Using Tobacco: 64; packs per day: 1.25; Second Hand Exposure: Yes; Do You Dip or Chew Tobacco: No; Tobacco Cessation Education Requested by Patient: No Hx Alcohol Use: No Hx Substance Use: No Preferred Language: Togolese Communication Ability: Effective Visual Impairment: No Limitations Hearing Ability: Use of Hearing Aid [employer] Employee Required: No Beliefs That Will Affect Care: None marital status: Current Living Situation: Alone Current Living Situation Comment: with home health services current 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 status: 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, [employer] Other Information That Helps Us Care for You: No Feels Safe at Home: Yes Safety Concerns: Feels Safe At This Time Childhood Exposure to Second-Hand Smoke: Yes Diet: low salt Diet Comment: watches her salt intake, does this by choice caffeine: Yes during the past year weight has: remained stable Dental Care, Regularly: No Physical Activity Frequency: Daily Physical Activity Frequency Comment: walking about 30 min a day Seatbelt Use: always Sunscreen Use: No Assistive Devices: Denture - Upper, Denture - Lower, Glasses, Hearing Aid - Bilateral, Walker and Wheelchair Allergies Allergies Allergy/AdvReac Type Severity Reaction Status Date / Time enalapril AdvReac Intermediate COUGH Verified 03/25/25 19:23 Home Meds Previous Rx's Medication Instructions Recorded acetaminophen 325 mg tablet 650 mg (2 x 325 mg) PO Q6H PRN 07/14/24 pain #30 tabs lorazepam 0.5 mg tablet (Ativan) 0.5 mg PO DAILY PRN anxiety #2 tabs 03/19/25 aspirin 81 mg tablet 81 mg PO DAILY #30 tabs 03/21/25 rosuvastatin 40 mg tablet (Crestor) 40 mg PO DAILY #30 tabs 03/21/25 buspirone 5 mg tablet 5 mg PO DAILY PRN anxiety 30 days 03/24/25 #30 tabs diltiazem HCl 240 mg capsule,24 240 mg PO DAILY 90 days #90 caps 03/24/25 hr,extended release (Tiadylt ER) oxybutynin chloride 15 mg 15 mg PO DAILY #30 tabs 03/24/25 tablet,extended release 24 hr potassium chloride 10 mEq 10 meq PO DAILY 90 days #90 tabs 03/24/25 tablet,extended release(part/cryst) triamterene 37.5 1 cap PO DAILY 90 days #90 caps 03/24/25 mg-hydrochlorothiazide 25 mg capsule Results & Data (ED) Vital Signs Vital Signs - 24 hr 03/25/25 18:51 03/25/25 18:56 03/25/25 19:16 Temperature 36.6 C Temperature Source Oral Pulse Rate 74 69 Pulse Rate [Apical] Respiratory Rate 16 Blood Pressure 158/88 H Blood Pressure [Right Arm] Blood Pressure Mean 111 Blood Pressure Mean [Right Arm] Pulse Oximetry 92 Oxygen Delivery Method Room Air Room Air Sepsis Recent Fever Within 48 Hours No Sepsis New/Unexplained Change in Mental Status N/A Sepsis Action Taken by Nursing No Action Required 03/25/25 20:51 Temperature Temperature Source Pulse Rate Pulse Rate [Apical] 68 Respiratory Rate 18 Blood Pressure Blood Pressure [Right Arm] 164/88 H Blood Pressure Mean Blood Pressure Mean [Right Arm] 113 Pulse Oximetry 96 Oxygen Delivery Method Sepsis Recent Fever Within 48 Hours Sepsis New/Unexplained Change in Mental Status Sepsis Action Taken by Nursing Laboratory Data 03/25/25 20:11 03/25/25 19:00 Lab Results 03/25/25 03/25/25 03/25/25 Range/Units 19:00 20:06 20:11 WBC Cancelled 8.87 RBC Cancelled 4.53 Hgb Cancelled 13.7 Hct Cancelled 41.6 MCV Cancelled 91.8 MCH Cancelled 30.2 MCHC Cancelled 32.9 RDW Std Deviation Cancelled 45.8 RDW Coeff of Mitchell Cancelled 13.4 Plt Count Cancelled 248 MPV Cancelled 9.2 L Immature Gran % (Auto) Cancelled 0.6 Neut % (Auto) Cancelled 79.8 Lymph % (Auto) Cancelled 9.4 Newton % (Auto) Cancelled 8.7 Eos % (Auto) Cancelled 1.0 Baso % (Auto) Cancelled 0.5 Neut # (Auto) Cancelled 7.09 H Lymph # (Auto) Cancelled 0.83 L Newton # (Auto) Cancelled 0.77 H Eos # (Auto) Cancelled 0.09 Baso # (Auto) Cancelled 0.04 Immature Gran # (Auto) Cancelled 0.05 Absolute Nucleated RBC Cancelled Nucleated RBC % (auto) Cancelled Neutrophils % (Manual) Cancelled Band Neutrophils % Cancelled Lymphocytes % (Manual) Cancelled Prolymphocyte % Cancelled Reactive Lymphs % (Man) Cancelled Monocytes % (Manual) Cancelled Eosinophils % (Manual) Cancelled Basophils % (Manual) Cancelled Metamyelocytes % (Man) Cancelled Myelocytes % (Man) Cancelled Promyelocytes % (Man) Cancelled Blast Cells % (Manual) Cancelled Plasma Cell % (Manual) Cancelled Other Cells % Cancelled Nucleated RBC % Cancelled Neutrophils # (Manual) Cancelled Band Neutrophils # Cancelled Total Absolute Neuts Cancelled Lymphocytes # (Manual) Cancelled Prolymphocyte # Cancelled Reactive Lymphs # Cancelled Total Abs Lymphocytes Cancelled Monocytes # (Manual) Cancelled Eosinophils # (Manual) Cancelled Basophils # (Manual) Cancelled Metamyelocytes # (Man) Cancelled Myelocytes # (Manual) Cancelled Promyelocytes # (Man) Cancelled Blast Cells # (Man) Cancelled Plasma Cell # (Manual) Cancelled Other Cells # Cancelled Nucleated RBCs # (Man) Cancelled Hypersegmented Neuts Cancelled Hyposegmented Neuts Cancelled Hypogranular Neuts Cancelled Large Granular Lymphs Cancelled # Lrg Granular Lymphs Cancelled Hairy Cells Cancelled Smudge Cells Cancelled Toxic Granulation Cancelled Toxic Vacuolation Cancelled Dohle Bodies Cancelled Zoran Rods Cancelled Platelet Estimate Cancelled Hypogranular Platelets Cancelled Giant Platelets Cancelled Platelet Satelliting Cancelled RBC Morphology Cancelled Polychromasia Cancelled Hypochromasia Cancelled Poikilocytosis Cancelled Basophilic Stippling Cancelled Anisocytosis Cancelled Microcytosis Cancelled Macrocytosis Cancelled Spherocytes Cancelled Pappenheimer Bodies Cancelled Sickle Cells Cancelled Target Cells Cancelled Tear Drop Cells Cancelled Ovalocytes Cancelled Stomatocytes Cancelled [place] Bodies Cancelled Echinocytes Cancelled Acanthocytes (Spur) Cancelled Rouleaux Cancelled RBC Agglutinates Cancelled Schistocytes Cancelled Sezary Cell Cancelled Sodium 138 (136-145) mmol/L Potassium 4.0 (3.5-5.1) mmol/L Chloride 106 (98-107) mmol/L Carbon Dioxide 25 (21-32) mmol/L Anion Gap 7 (3-11) BUN 13 (6-23) mg/dl Creatinine 0.94 (0.6-1.2) mg/dl Est Cr Clr Drug Dosing 52.1 ml/min eGFR 61.72 BUN/Creatinine Ratio 13.8 (10-20) Glucose 123 H (70-99(Fasting)) mg/dl Calcium 9.6 (8.6-10.3) mg/dl Magnesium 1.8 (1.7-2.4) mg/dl Total Bilirubin 0.6 (0.2-1.0) mg/dl AST 16 (13-39) U/L ALT 11 (7-52) U/L Alkaline Phosphatase 76 (34-104) U/L Troponin I High Sens 12.7 (0-14) pg/ml Total Protein 6.7 (6.0-8.3) gm/dl Albumin 3.7 (3.4-5.0) gm/dl Globulin 3.0 (2.5-4.0) gm/dl Albumin/Globulin Ratio 1.2 (0.9-2) TSH 1.452 (0.300-4.500) uIu/ml Urine Color Yellow Urine Appearance Clear (Clear) Urine pH 5.5 (4.5-7.5) Ur Specific [place] 1.018 (1.000-1.030) Urine Protein Negative (Negative) Urine Glucose (UA) Negative (Negative) Urine Ketones Negative (Negative) Urine Blood Negative (Negative) Urine Nitrite Negative (Negative) Urine Bilirubin Negative (Negative) Urine Urobilinogen Negative (Negative) Ur Leukocyte Esterase Negative (Negative) Urine Comment Blood Parasites ID Cancelled Administered Medications Sodium Chloride (Nss) 1,000 mls @ 80 mls/hr IV .[id number] Stop: 03/26/25 07:44 Last Admin: 03/25/25 19:37 Dose: 80 mls/hr Documented By: BLAINE Discontinued Medications Magnesium Sulfate/Dextrose (Magnesium Sulfate / D5w) 1 gm in 100 mls @ 50 mls/hr IV ONE ONE Stop: 03/25/25 23:22 Last Infusion: 03/26/25 00:18 Dose: Infused Documented By: [id number] Admin: 03/25/25 22:04 Dose: 50 mls/hr Documented By: BLAINE Lorazepam (Lorazepam 0.5 Mg Tab) 0.5 mg PO ONE PRN PRN Reason: MRI Last Admin: 03/26/25 01:34 Dose: 0.5 mg Documented By: [id number] Ondansetron HCl (Ondansetron Inj 2 Mg/Ml 2 Ml Vial) 4 mg IV NOW STA Stop: 03/25/25 21:18 Last Admin: 03/25/25 21:22 Dose: 4 mg Documented By: BLAINE Imaging Data Radiologist's Impression: Abdomen/Pelvis CT 03/25/25 19:08 EXAMINATION: Abdomen and pelvis CT without CLINICAL HISTORY: Vomiting PRIORS: Pelvis plain film 01/26/2025 TECHNIQUE: Contiguous axial images were obtained through the abdomen and pelvis without the use of intravenous contrast. Sagittal and coronal reformations are supplied. FINDINGS: Lung bases unremarkable. Evaluation of solid organs is limited without the use of intravenous contrast. Allowing for this, the liver, pancreas, spleen, stomach, and adrenals are morphologically unremarkable. A small to moderate hiatal hernia is present. Advanced atherosclerotic disease of the abdominal aorta is noted. Left total hip arthroplasty create significant beam hardening artifact diminishing image quality. Advanced diverticulosis of the transverse, descending and sigmoid colon present. No pericolonic inflammatory change. No dilated loops of bowel or obstruction. Appendix is normal. No significant amount of formed stool in the colon. Urinary bladder distends normally. Atrophic uterus is present. No free fluid in the pelvis. No extraluminal gas, ascites or adenopathy. Mild diverticulosis of the ascending colon. Kidneys are symmetric. No hydronephrosis. In bone windows, moderate osseous demineralization. Advanced degenerative change throughout the lumbar spine. No high-grade compression fracture. IMPRESSION: 1. No CT evidence of an acute abdominal or pelvic abnormality. 2. Moderate to advanced diverticulosis of the entire colon with no pericolonic inflammatory change. 3. Small to moderate hiatal hernia. 4. Advanced atherosclerotic disease of the abdominal aorta. Electronically signed by Mary Anders 03-25-2025 7:48 PM Chest X-Ray 03/25/25 19:08 Exam(s): XR CXR 1 VIEW EXAM: XR Chest, 1 View CLINICAL HISTORY: Reason for exam: weakness. TECHNIQUE: Frontal view of the chest. COMPARISON: 07/08/2024 FINDINGS: Lungs: No consolidation. No overt edema. Pleural space: No pleural effusion. No pneumothorax. Heart: Unremarkable. No cardiomegaly. IMPRESSION: No acute cardiopulmonary abnormality. Electronically signed by: Clem Rob MD 03/25/25 23:37 PM Discharge Plan Visit Data Chief Complaint: Illness Stated Complaint: WEAKNESS, VOMITING ED Provider: Delfin Amado Discharge Problem: Vomiting, Fatigue, Cerebellar stroke, NPH (normal pressure hydrocephalus) Patient Disposition: Admitted As Inpatient Condition: Fair Discharge Instructions Interventions: ED Discharge Assessment Last Done: 03/25/25 22:21
[2025-03-25 20:22] LABS: Appearance Urine Clear (Clear); Glucose Urine UA Negative (Negative)
[2025-03-25 20:27] LABS: Hematocrit (blood only) 41.6 % (37.0-47.0); Hemoglobin 13.7 g/dl (12.0-16.0); Immature Granulocytes # (auto) 0.05 K/uL (0.01-0.20); Immature Granulocytes % (auto) 0.6 %; Mean Corpuscular Hemoglobin 30.2 pg (25.0-34.0); Mean Corpuscular Volume 91.8 fL (80.0-100.0); Platelet Count 248 K/uL (130-400); RDW Standard Deviation 45.8 fL (36.4-46.3); Red Blood Count 4.53 M/uL (4.20-5.40); White Blood Count 8.87 K/ul (4.8-10.8)
--- NOTE | 2025-03-25 21:20 | History & Physical Report ---
Date of Service March 25, 2025 Assessment & Plan (1) Cerebellar stroke: (2) Vomiting: (3) Gait abnormality: (4) Hypomagnesemia: Plan Patient is a 79-year-old female with past medical history of hyperlipidemia, hypertension, lower extremity edema. Patient presented via EMS due to a prolonged episode of vomiting, dizziness, confusion, and weakness. Patient recently found out on Wednesday that her brain MRI showed a small acute to subacute infarct and concern for atrophy versus NPH. Patient does have difficulty with balance/gait abnormalities, urinary incontinence, and intermittent confusion. She is being admitted for further stroke workup including brain MRI and angiography studies and to have neurology eval. #stroke workup - MRI 03/21 showed 1 centimeters hyperintense focus of right cerebellar hemisphere concerning for small acute to subacute infarct as well as dilation of left ventricle and third ventricle concerning for atrophy versus NPH. Patient with new symptoms 03/25, improved at time of admission. Repeat MRI brain ordered MRI angiography of brain and neck ordered Start baby aspirin daily Continue rosuvastatin 40 Mg daily Ordered lipid panel and A1c with a.m. labs - echo with bubble study ordered Neurology consulted #vomiting 1 episode at home, resolved at time of admission however with persistent nausea. Stroke workup as above. APCT negative for acute changes. Hold triamtereneHCTZ Zofran as needed - clear diet, advance as tolerated - NSS @ 80 ml/hr x 1L #Hypomagnesemia mag 1.8. Likely secondary to GI losses. Renal function stable. 1G IV magnesium ordered Trend magnesium #Bilateral lower extremity edema patient reports chronic for several years, unchanged. Teds ordered Promote leg elevation #Hypertension continue diltiazem. Holding triamtereneHCTZ as above. VTE ppx: SCDs and TEDs, low risk and obs status; consider chemical ppx if prolonged stay Dispo: med/tele Admission and Anticipated Discharge Date Admission Date: 03/25/25 History of Present Illness Chief Complaint: illness Primary Care Provider: Ely Bain MD Patient is a 79-year-old female with past medical history of hyperlipidemia, hypertension, lower extremity edema. Patient presented via EMS due to a prolonged episode of vomiting, dizziness, confusion, and weakness. Patient recently found out on Wednesday that her brain MRI showed a small acute to subacute infarct and concern for atrophy versus NPH. Patient does have difficulty with balance/gait abnormalities, urinary incontinence, and intermittent confusion. She is being admitted for further stroke workup given episode today including brain MRI and angiography studies and to have neurology eval. Patient seen at bedside with her kjsuqldt-mj-het present. She stated she is daily home health and when they were visiting today she had a prolonged episode of vomiting in which she threw up her Alex Antwan's breakfast bowl which she thought may have been bad. he came in via EMS and received Zofran 4 Mg IV en route. Her jcxewrlb-kx-sox was concerned given the patient reported dizziness, weakness and seemed mildly confused after the episode. Patient stated she does remember feeling dizzy however now feels back to her baseline. Patient had an MRI with her PCP due to persistent gait abnormalities, confusion, and urinary incontinence after having an abnormal head CT. The MRI on 03/21 showed a 1 cm hyperintense focus of the right cerebellar hemisphere concerning for small acute to subacute infarct. Also dilated left ventricle and third ventricle concerning for atrophy versus NPH. Patient stated she uses a walker at baseline however frequently has balance issues and is slow due to concern for fall. She currently denies any headaches, dizziness, lightheadedness, chest pain, shortness of breath, vomiting, abdominal pain, diarrhea, dysuria. She is feeling nauseous, Zofran ordered. She does not use nicotine products or drink alcohol. She did take all of her morning medications today. On Wednesday her PCP increase her cholesterol medication from 10 Mg daily to 40 Mg daily and started her on a baby aspirin which she has not yet started. She wishes to be DNR/DNI. Allergies Allergy/AdvReac Type Severity Reaction Status Date / Time enalapril AdvReac Intermediate COUGH Verified 03/25/25 19:23 Home Medications Medication Instructions Recorded Confirmed Type acetaminophen 325 mg tablet 650 mg (2 x 325 mg) PO Q6H PRN 07/14/24 03/25/25 Rx pain #30 tabs lorazepam 0.5 mg tablet (Ativan) 0.5 mg PO DAILY PRN anxiety #2 tabs 03/19/25 03/25/25 Rx aspirin 81 mg tablet 81 mg PO DAILY #30 tabs 03/21/25 03/25/25 Rx rosuvastatin 40 mg tablet (Crestor) 40 mg PO DAILY #30 tabs 03/21/25 03/25/25 Rx buspirone 5 mg tablet 5 mg PO DAILY PRN anxiety 30 days 03/24/25 03/25/25 Rx #30 tabs diltiazem HCl 240 mg capsule,24 240 mg PO DAILY 90 days #90 caps 03/24/25 03/25/25 Rx hr,extended release (Tiadylt ER) oxybutynin chloride 15 mg 15 mg PO DAILY #30 tabs 03/24/25 03/25/25 Rx tablet,extended release 24 hr potassium chloride 10 mEq 10 meq PO DAILY 90 days #90 tabs 03/24/25 03/25/25 Rx tablet,extended release(part/cryst) triamterene 37.5 1 cap PO DAILY 90 days #90 caps 03/24/25 03/25/25 Rx mg-hydrochlorothiazide 25 mg capsule Past Med/Surg History Problem List Hypomagnesemia Gait abnormality NPH (normal pressure hydrocephalus) (Acute) Cerebellar stroke (Acute) Fatigue (Acute) Vomiting (Acute) Urinary incontinence Impaired fasting glucose HgbA1C 05/09/24: 5.8% Hypertension S/P total hip arthroplasty Medical History Degenerative joint disease of left hip Hard of hearing Hx of colonic polyps Paresthesia of right foot Lower extremity edema Ambulatory dysfunction Hip arthritis Hyperlipidemia Surgical History Status post left hip replacement Hx of gynecological procedure Hx of right cataract extraction History of colonoscopy History of left cataract extraction History of bilateral tubal ligation History of cholecystectomy Family History Brother Prostate cancer Other No family history of adverse response to anesthesia Denies family history of Ovarian cancer Myocardial infarction Breast cancer Colorectal cancer Social History Smoking Status: Former smoker Tobacco Type: Cigarettes Age Started Using Tobacco: 13; Age Quit Using Tobacco: 64; packs per day: 1.25; Second Hand Exposure: Yes (hx growing up); Do You Dip or Chew Tobacco: No; Hx Alcohol Use: No Hx Substance Use: No Preferred Language: Nauruan Communication Ability: Effective Visual Impairment: No Limitations Hearing Ability: Use of Hearing Aid Senior Research Analyst Required: No Beliefs That Will Affect Care: None marital status: Current Living Situation: Alone current 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 status: retired 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, [employer] Feels Safe at Home: Yes Childhood Exposure to Second-Hand Smoke: Yes Diet: low salt Diet Comment: watches her salt intake, does this by choice caffeine: Yes during the past year weight has: remained stable Dental Care, Regularly: No Physical Activity Frequency: Daily Physical Activity Frequency Comment: walking about 30 min a day Seatbelt Use: always Sunscreen Use: No Assistive Devices: Cane, Walker and Wheelchair Review of Systems Review of Systems: see HPI Physical Exam Physical Exam: The patient is awake, alert and oriented 3, well developed and well nourished, normocephalic and atraumatic, in no acute distress. Non-toxic appearing. HEENT- EOMI, mucous membranes moist. Hearing grossly intact. Heart-normal S1 and S2. No murmurs, rubs or gallops. Lungs-clear bilaterally, no respiratory distress, no accessory muscle use. Abdomen-normal bowel sounds and soft. No ascites noted. Non-tender. Extremities- no clubbing, cyanosis. +1 pitting edema BL LE. Rheumatologic-normal range of motion. Psychiatric-normal affect. Musculoskeletal: no cyanosis or clubbing, extremities motor strength 5/5 Neurologic: PERRL, EOMI, accommodation nl, no face palsy, no dysarthria C N's II-XI intact bilaterally; no focal motor deficits Motor/Sensory: no pronator drift Coordination: normal [id number]-[id number] test Results & Data Results & Data Vital Signs (Past 12 Hours) Vital Signs Temp Pulse Resp BP Pulse Ox O2 Del Method 03/25/25 19:16 Room Air 03/25/25 18:56 69 03/25/25 18:51 36.6 C 74 16 158/88 H 92 Room Air Laboratory Results Reviewed CBC, CMP, magnesium, troponin, TSH, UA Diagnostic Findings reviewed AP CT CXR pending at time of admission however personally reviewed and it appears similar to previous Medications Administered EDNSS at 80 mL/hour x 1 L AdmissionZofran 4 Mg IV ECG Additional Comments: NSR Rate 63 QTc 433 Code Status & VTE Plan Code Status DNR/DNI VTE Prophylaxis Plan VTE Prophylaxis will be ordered: Yes Supervising Physician Co-Signing Physician Notes Attending addendum: I have physically seen this patient, have supervised the SUPRIYA's activities, and agree with the H&P unless as otherwise noted. Assessment and Plan: The patient is a 79-year-old female with past medical history including hyperlipidemia, hypertension, lower extremity edema, gait abnormality, urinary incontinence, status post total hip arthroplasty, and bladder spasm. She presented to the emergency department due to an episode of vomiting, dizziness, confusion and generalized weakness. She had a brain MRI performed on 03/21/2025 in the outpatient setting, and was notified of an abnormality the following day. The patient has had issues with imbalance and gait disturbance, urinary incontinence, and intermittent confusion. Brain MRI on 03/21 suggested a right cerebellar acute/subacute infarct, possible NPH, and an old posterior right parietal lobe infarct. The patient is referred for evaluation [facility] for further assessment of stroke, possible NPH, and her ongoing symptoms. Recent CVA- Brain MRI on 03/21/2025 showed a right cerebellar 1 cm acute/subacute infarct, findings of possible NPH, and old posterior right parietal lobe infarct. Starting baby aspirin 81 mg daily Starting rosuvastatin 40 mg p.o. daily Check a fasting lipid panel and hemoglobin A1c The patient will be admitted to telemetry for serial cardiac enzymes, serial EKG's, cardiac rhythm monitoring and a 2-D echocardiogram with Dopplers. Repeating MRI brain today MR angiography of brain and neck ordered and pending Vomiting- Patient had 1 episode at home, and has had none since being in the emergency department Unclear if associated with above stroke findings Hold triamterene/HCTZ Zofran 4 mg IV every 6 hours as needed Clear diet, advancing as tolerated NSS 80 mL/h x 1 L Relative hypomagnesemia- Magnesium 1.8 Give magnesium sulfate 1 g IV, recheck laboratories in the a.m. Bilateral lower extremity edema- Patient reports this has been chronic for several years Tests ordered Leg elevation Could possibly be associated with diltiazem Hypertension for now continue diltiazem, and holding triamterene/HCTZ as noted above PG Care Time/CCT Total # of Minutes Spent Total Time Spent with Patient: Total time spent is greater than 50% in coordination of care (as documented) at patient's floor/unit and/or counseling patient: Coding Level of Care Code 06202 INT INP/OBS CARE 3/75MIN Diagnoses Cerebellar stroke I63.9 Vomiting R11.10 Gait abnormality R26.9 Hypomagnesemia E83.42
[2025-03-25] MEDS: ONDANSETRON INJ 2 MG/ML 2 ML VIAL IV STA (21:22)
[2025-03-25] MEDS: MAGNESIUM SULFATE / D5W 1 GM/100 ML BAG IV ONE (22:04)
[2025-03-25] MEDS ORDERED: busPIRone 5 MG TAB PO PRN (23:08)
[2025-03-25] MEDS ORDERED: LORazepam 0.5 MG TAB PO PRN (23:08)
[2025-03-25] MEDS ORDERED: MELATONIN 3 MG TAB PO PRN (23:08)
[2025-03-25] MEDS ORDERED: DOCUSATE SODIUM 100 MG CAP PO PRN (23:08)
--- NOTE | 2025-03-25 23:38 | XRay Report ---
Exam(s): XR CXR 1 VIEW EXAM: XR Chest, 1 View CLINICAL HISTORY: Reason for exam: weakness. TECHNIQUE: Frontal view of the chest. COMPARISON: 07/08/2024 FINDINGS: Lungs: No consolidation. No overt edema. Pleural space: No pleural effusion. No pneumothorax. Heart: Unremarkable. No cardiomegaly. IMPRESSION: No acute cardiopulmonary abnormality. Electronically signed by: Clem Rob MD 03/25/25 23:37 PM
[2025-03-26] MEDS: LORazepam 0.5 MG TAB PO PRN (01:34)
[2025-03-26] MEDS: GADOBUTROL 30ML VIAL IV ONE (02:34)
[2025-03-26] MEDS: ONDANSETRON INJ 2 MG/ML 2 ML VIAL IV PRN (03:04)
--- NOTE | 2025-03-26 03:55 | Magnetic Resonance Report ---
EXAM: MR brain wo con CLINICAL HISTORY: Stroke-like sx, nph TECHNIQUE: MRI of the brain was performed without contrast with multiplanar sequences obtained. COMPARISON: Comparison is made with prior imaging studies dated [CT study 01/26/2025]. FINDINGS: Brain Parenchyma: Bilateral deep white matter periventricular confluent patchy sheets of bright T2 and FLAIR weighted images signal intensity at both frontoparietal regions, denoting small artery disease Multiple tiny subcentimetric foci of altered bright T2 and FLAIR weighted images signal intensity are seen scattered within both cerebral hemispheres, mainly the frontoparietal regions subcortical and periventricular in location, exert no appreciable mass effect upon the surrounding structures. No MRI evidence of restricted diffusion. No evidence of hemorrhage. Ventricles and Sulci: Moderate symmetric and dilatation of the ventricular system. There are T2WI and FLAIR hyperintensities along with the lateral ventricles, which denote transependymal CSF permeation. Widened both sylvian fissures, prominent cortical sulci, and basal cisterns. There is discordance between the ventricular dilatation and sulcal dilatation. Posterior Fossa: Few tiny foci of bright T2 and FLAIR weighted images signal intensity are seen within right cerebellar hemisphere. There is 3 mm, tiny DWI hyperintense focus in right cerebellar hemisphere with bright signal intensity on FLAIR weighted images and an intermediate ADC value. These findings are suggestive of late acute or early subacute infarct. Cranial Nerves: Normal course and appearance of cranial nerves identified. Orbits and Skull Base: Orbits and skull base structures are normal without evidence of abnormalities. IMPRESSION: 1. Right cerebellar tiny ischemic foci with a signal property denoting late acute or early subacute infarct. 2. Brain involutional changes with deep white matter small artery disease. 3. Bilateral cerebral ischemic foci and lacunar infarcts. 4. Findings suggestive of normal pressure hydrocephalus. Please correlate clinically. Normal appearance of brain parenchyma, ventricular system, posterior fossa, cranial nerves, vessels, orbits, and skull base. Electronically signed by Arun Lamas 03-26-2025 03:55 AM
--- NOTE | 2025-03-26 04:18 | Magnetic Resonance Report ---
EXAM: MR angio head wo con CLINICAL HISTORY: stroke workup TECHNIQUE: MRA of the head was performed without intravenous contrast. 3D Ijaj-iw-Obsghg (TOF) sequences were acquired through the [place]. COMPARISON: "No prior studies available for comparison." FINDINGS: Intracranial Arteries: Right Internal Carotid Artery (ICA): The proximal segment is [normal]. The middle segment is [normal]. The distal segment is [normal]. Left Internal Carotid Artery (ICA): The proximal segment is [normal]. The middle segment is [normal]. The distal segment is [normal]. Right Middle Cerebral Artery (MCA): The M1 segment is [normal]. The M2 segment is [normal]. Left Middle Cerebral Artery (MCA): The M1 segment is [normal]. The M2 segment is [normal]. Right Anterior Cerebral Artery (NESTOR): The A1 segment is [normal]. The A2 segment is [normal]. Left Anterior Cerebral Artery (NESTOR): The A1 segment is [normal). The A2 segment is [normal]. Anterior Communicating Artery (ACoA): The ACoA is [normal]. Right Posterior Cerebral Artery (MANAGER PAPER): The P1 segment is [normal. The P2 segment is [normal]. Left Posterior Cerebral Artery (MANAGER PAPER): The P1 segment is [normal. The P2 segment is [david]. Posterior Communicating Artery (PCoA): The PCoA is [normal]. Basilar Artery: The basilar artery is [normal]. Vertebral Arteries: Tortuous atheromatous changes of the vertebral arteries with no significant stenotic lesions Additional Findings: There is no evidence of aneurysms, significant stenosis, or vascular malformations identified. IMPRESSION: Atheromatous changes of the cerebral vessels most evident at the posterior circulation with no significant stenotic lesions or occlusions A negative MRA does not exclude the possibility of small vessel disease or subtle vascular abnormalities. Clinical correlation and follow-up imaging may be warranted based on clinical symptoms and history. Electronically signed by Arun Lamas 03-26-2025 04:18 AM
--- NOTE | 2025-03-26 04:19 | Magnetic Resonance Report ---
EXAM: MR angio neck wo/w con CLINICAL HISTORY: stroke workup TECHNIQUE: MRA of the head was performed without intravenous contrast. 3D Kewo-xe-Ots[place] (TOF) sequences were acquired through the [place]. COMPARISON: Comparison is made with a previous MRA dated [insert date], if available. Otherwise, state "No prior studies available for comparison." FINDINGS: Carotid Arteries: Common Carotid Arteries (CCA): Normal caliber and signal intensity. No evidence of luminal narrowing or dissection. Internal Carotid Arteries (ICA): Filling defects at proximal internal carotid arteries on both sides, 60% stenosis at the right side, 40% stenosis at the left side Otherwise, normal distal flow-related signal bilaterally. No dissection flap seen. External Carotid Arteries (ECA): Patent and unremarkable bilaterally. Vertebral Arteries: Patent bilaterally with a normal flow signal. No significant stenosis or dissection. Normal course through the transverse foramina and across the foramen magnum. Other Vessels: Subclavian and proximal brachiocephalic arteries are patent. No evidence of aneurysm, arteriovenous malformation, or vascular mass. Intracranial Arteries: Right Internal Carotid Artery (ICA): Patent and unremarkable bilaterally. No significant stenosis. No aneurysms Left Internal Carotid Artery (ICA): Patent and unremarkable. No significant stenosis. No aneurysms Right Middle Cerebral Artery (MCA): Patent and unremarkable. No significant stenosis. No aneurysms The M1 segment is normal The M2 segment is normal Left Middle Cerebral Artery (MCA): Patent and unremarkable. No significant stenosis. No aneurysms The M1 segment is normal The M2 segment is normal Right Anterior Cerebral Artery (NESTOR): Patent and unremarkable. No significant stenosis. No aneurysms Left Anterior Cerebral Artery (NESTOR): Patent and unremarkable. No significant stenosis. No aneurysms Anterior Communicating Artery (ACoA): No aneurysm Right Posterior Cerebral Artery (WIRER): Patent and unremarkable. No significant stenosis. No aneurysms Left Posterior Cerebral Artery (WIRER): Patent and unremarkable. No significant stenosis. No aneurysms Posterior Communicating Artery (PCoA): No aneurysm Basilar Artery: Patent and unremarkable. No significant stenosis. No aneurysms Vertebral Arteries: Patent and unremarkable. No significant stenosis. No aneurysms Additional Findings: [place] is normal There is no evidence of aneurysms, significant stenosis, or vascular malformations identified. IMPRESSION: 1. Atherosclerotic changes. 2. Proximal 60% stenosis at the right internal carotid artery. 40% stenosis at left internal carotid artery. 3. Clinical correlation is recommended for further evaluation with carotid-vertebral Doppler US. Electronically signed by Arun Lamas 03-26-2025 04:19 AM
[2025-03-26 07:15] LABS: Hematocrit (blood only) 37.9 % (37.0-47.0); Hemoglobin 12.3 g/dl (12.0-16.0); Immature Granulocytes # (auto) 0.05 K/uL (0.01-0.20); Immature Granulocytes % (auto) 0.7 %; Mean Corpuscular Hemoglobin 30.1 pg (25.0-34.0); Mean Corpuscular Volume 92.7 fL (80.0-100.0); Platelet Count 231 K/uL (130-400); RDW Standard Deviation 46.2 fL (36.4-46.3); Red Blood Count 4.09 M/uL (4.20-5.40); White Blood Count 6.97 K/ul (4.8-10.8)
[2025-03-26 08:02] LABS: Anion Gap 6.0 (3-11); Blood Urea Nitrogen 13.0 mg/dl (6-23); Calcium 8.7 mg/dl (8.6-10.3); Carbon Dioxide 27.0 mmol/L (21-32); Chloride 107.0 mmol/L (98-107); Cholesterol 145.0 mg/dl (0-200); Creatinine Clr Calc Pharmacy 52.5 ml/min; Glucose 87.0 mg/dl (70-99(Fasting)); HDL Cholesterol 47.0 mg/dl; Magnesium 1.9 mg/dl (1.7-2.4); Potassium 3.7 mmol/L (3.5-5.1); Sodium 140.0 mmol/L (136-145); Triglycerides 76.0 mg/dl (0-150)
[2025-03-26 08:05] LABS: Hemoglobin A1C 5.6 % (4.5-5.6)
[2025-03-26] MEDS: ASPIRIN 81 MG ECTAB PO SCH (08:34)
[2025-03-26] MEDS: ROSUVASTATIN CALCIUM 20 MG TAB PO SCH (08:34)
[2025-03-26] MEDS ORDERED: OXYBUTYNIN CHLORIDE XL 5 MG TABCR PO SCH (09:00)
--- NOTE | 2025-03-26 10:47 | XCELERA ---
[id number] \\[email or web address]\[id number]
--- NOTE | 2025-03-26 11:41 | Electrocardiogram Report ---
Test Reason : Blood Pressure : */* mmHG Vent. Rate : 63 BPM Atrial Rate : 63 BPM P-R Int : 166 ms QRS Dur : 86 ms QT Int : 424 ms P-R-T Axes : 48 30 43 degrees QTcB Int : 433 ms Normal sinus rhythm Normal ECG When compared with ECG of 26-Jan-2025 18:00, Premature ventricular complexes are no longer Present Confirmed by Jeffery Morales ([id number]) on 03/26/2025 11:41:24 AM Referred By: REFERRED SELF Confirmed By: Jeffery Morales
--- NOTE | 2025-03-26 14:22 | Hospitalist Progress Note ---
Date of Service March 26, 2025 Assessment & Plan (1) Cerebellar stroke: Plan: Asymptomatic. Await Neurology Service evaluation with Dr. Delfin Villar. In the interim, continue secondary prophylaxis against CVD utilizing home-scheduled ASA 81mg PO daily and rosuvastatin 40mg PO daily. In addition, I have opted to D/C patient's home-scheduled oxybutynin 15mg PO daily given the strong anti- cholinergic properties of this medication, which can exacerbate/cause dizziness, lightheadedness, N/V/D abdominal pain, etc. (2) Vomiting: Plan: Asymptomatic. Observe. (3) Gait abnormality: Plan: Await PT/OT Service evaluations in the 03/26/2025 am. (4) Hypomagnesemia: Plan: NOT hypomagnesemic: cf., normal Mg 1.8 mg/dL (03/25/2025, 7:00pm). cf., normal Mg 1.9 mg/dL (03/26/2025, 5:32am). s/p magnesium sulfate 1g IV x 1 dose (03/25/2025, 10:04pm). Observe. Plan Patient is a 79-year-old female with past medical history of hyperlipidemia, hypertension, lower extremity edema. Patient presented via EMS due to a prolonged episode of vomiting, dizziness, confusion, and weakness. Patient recently found out on Wednesday that her brain MRI showed a small acute to subacute infarct and concern for atrophy versus NPH. Patient does have difficulty with balance/gait abnormalities, urinary incontinence, and intermittent confusion. She is being admitted for further stroke workup including brain MRI and angiography studies and to have neurology eval. #stroke workup - MRI 03/21 showed 1 centimeters hyperintense focus of right cerebellar hemisphere concerning for small acute to subacute infarct as well as dilation of left ventricle and third ventricle concerning for atrophy versus NPH. Patient with new symptoms 03/25, improved at time of admission. Repeat MRI brain ordered MRI angiography of brain and neck ordered Start baby aspirin daily Continue rosuvastatin 40 Mg daily Ordered lipid panel and A1c with a.m. labs - echo with bubble study ordered Neurology consulted #vomiting 1 episode at home, resolved at time of admission however with persistent nausea. Stroke workup as above. APCT negative for acute changes. Hold triamtereneHCTZ Zofran as needed - clear diet, advance as tolerated - NSS @ 80 ml/hr x 1L #Hypomagnesemia mag 1.8. Likely secondary to GI losses. Renal function s table. 1G IV magnesium ordered Trend magnesium #Bilateral lower extremity edema patient reports chronic for several years, unchanged. Teds ordered Promote leg elevation #Hypertension continue diltiazem. Holding triamtereneHCTZ as above. VTE ppx: SCDs and TEDs, low risk and obs status; consider chemical ppx if prolonged stay Dispo: med/tele Admission and Anticipated Discharge Date Admission Date: March 25, 2025 Subjective "I feel fine now. No complaints. No more vomit, dizziness, confusion, or weakness. When can I go home?" Review of Systems Constitutional: Negative for antecedent/coincident fevers, chills, diaphoresis, cough, wheeze, sore throat, hemoptysis, chest pains, palpitations, pleurisy, nausea, vomiting, diarrhea, abdominal pain, pelvic pain, hematemesis, hematochezia, melena, hematuria, dysuria, frequency, urgency, headaches, dizziness, lightheadedness, visual changes, hearing changes, weakness, falls, syncope, trauma, travel history, sick contacts, or food/drug ingestions novel or new. All other review of systems are reported as negative by the patient on 03/26/2025. Physical Exam Constitutional: General appearance: Comfortable, coherent, cooperative. Wide awake and alert. Not confused, lethargic, or obtunded. Speaks in complete, fluent, and articulate sentences without pause, interruption, cough, or wheeze. No facial droop. HEENT: Normocephalic; atraumatic. EOMI. PERRL No rhinorrhea. No pharyngeal discharge. Neck: Supple, no stridor, bruit, goiter, JVD, or HJR. Lymph: No lymphadenopathy. Chest: Symmetric rise and fall with respirations. Non-tender to palpation. Lungs: Clear to auscultation and percussion. No audible wheeze, pector iloquy, increase in tactile fremitus, or flatness/dullness to percussion at the bases. Heart: RRR, S1S2, no S3 or S4. Grade II/ early systolic murmur @ LLSB without radiation to the carotids, axilla, or back, and which remains invariant in regards to the respiratory cycle. Abd: Soft, non-tender, non-distended. No rebound, guarding, 's sign, or organomegaly. Bowel sounds auscultated in all 4 quadrants. Ext: No clubbing, cyanosis, or edema. 2+ pedal pulses bilaterally. Skin: No decubitus ulcer, exanthem, or enanthem. Neuro: Alert and oriented in regards to person, place, time, or situation. 5/5 motor strength in all 4 extremities, both proximally and distally. No pronator drift. Urology: No hussein catheter. No urethral discharge. Psych: No suicidal ideation. No homicidal ideation. Results & Data Results & Data Vital Signs (Past 12 Hours) Vital Signs Temp Pulse Pulse Resp BP Pulse Ox O2 Del Method 03/26/25 11:24 36.6 C 67 18 130/76 93 Room Air 03/26/25 07:53 36.5 C 73 18 158/77 H 94 Room Air 03/26/25 07:48 59 L 03/26/25 03:55 36.2 C L 63 16 151/78 H 94 Room Air Laboratory Results Fasting lipid panel (03/26/2025, 5:32am): total cholesterol 145, HDL 47, LDL 83, triglycerides 76 HbA1c 5.6% (03/26/2025, 5:32am). TSH 1.452 uIU/mL (03/25/2025, 7:00pm). Diagnostic Findings CT abd/pelvis without IV/oral contrast (03/25/2025, 7:08pm): 1. No CT evidence of an acute abdominal or pelvic abnormality. 2. Moderate to advanced diverticulosis of the entire colon with no pericolonic inflammatory change. 3. Small to moderate hiatal hernia. 4. Advanced atherosclerotic disease of the abdominal aorta. Portable CXR (03/25/2025, 7:08pm): 1. No infiltrate, effusion, cardiomegaly, pulmonary vascular congestion, or pneumothorax (by my review). MRA brain (03/26/2025, 1:50am): 1. Atheromatous changes of the cerebral vessels most evident at the posterior circulation with no significant stenotic lesions or occlusions 2. A negative MRA does not exclude the possibility of small vessel disease or subtle vascular abnormalities. Clinical correlation and follow-up imaging may be warranted based on clinical symptoms and history. MRA neck (03/26/2025, 1:51am): 1. Atherosclerotic changes. 2. Proximal 60% stenosis at the right internal carotid artery. 40% stenosis at left internal carotid artery. 3. Clinical correlation is recommended for further evaluation with carotid- vertebral Doppler US. MRI brain without contrast (03/26/2025, 7:42am): 1. Right cerebellar tiny ischemic foci with a signal property denoting late acute or early subacute infarct. 2. Brain involutional changes with deep white matter small artery disease. 3. Bilateral cerebral ischemic foci and lacunar infarcts. 4. Findings suggestive of normal pressure hydrocephalus. Please correlate clinically. 5. Normal appearance of brain parenchyma, ventricular system, posterior fossa, cranial nerves, vessels, orbits, and skull base. TTE 03/26/2025, 6:13am): 1. LVEF 55-60%. LV wall motion normal. 2. RV normal size and systolic function. 3. LA/RA sizes normal. 4. No . No AI. 5. PV not well seen, but grossly normal. 6. Mild MS. Mild-moderate MR. 7. Mild TR. RVSP normal. 8. Aortic root normal size. Normal IVC diameter and respiratory variation suggests normal CVP. 9. No pericardial effusion. (as per CARDS Dr. Jeffery Morales). PG Care Time/CCT Total # of Minutes Spent Total Time Spent with Patient: Total time spent is greater than 50% in coordination of care (as documented) at patient's floor/unit and/or counseling patient: Coding Level of Care Code 49527 SUB INP/OBS CARE 2/35MIN Diagnoses Cerebellar stroke I63.9 Vomiting R11.10 Gait abnormality R26.9 Hypomagnesemia E83.42
--- NOTE | 2025-03-26 17:05 | Neurology Consultation ---
Date of Consultation March 26, 2025 Assessment & Plan (1) Cerebellar stroke: (2) NPH (normal pressure hydrocephalus): Plan 79-year-old female with a greater than 1 year history of persistent, progressive, gait disorder, occasional falls, urinary incontinence, recent brain MRI revealing significant enlargement of the ventricles, out of proportion to the degree of cortical atrophy, potentially consistent with normal pressure hydrocephalus. The study also reveals a subacute right cerebellar infarct. I do not find any hemiataxia on her neurological examination. The small right cerebellar infarct appears to be clinically incidental. MR angiography reveals incidental carotid stenoses, 60% on the right, 40% on the left. No cardioembolic source identified on echocardiography. No atrial fibrillation on ECG. Patient does have a history of hypertension and dyslipidemia, she is prescribed diltiazem, triamterene hydrochlorothiazide, and rosuvastatin as an outpatient. Consider obtaining 30-day mobile cardiac outpatient telemetry. Would also recommend dual antiplatelet therapy, aspirin 81 mg/day and Plavix 75 mg/day for 3 weeks, followed by aspirin monotherapy. May continue with Crestor at the current dosage. LDL goal 70 or less, patient will follow-up with her PCP in this regard. I would like to assess her in the outpatient clinic, 2 to 3 weeks after discharge to more fully assess her gait. If her gait is truly magnetic, would consider referring her for a neurosurgical assessment for consideration of a lumbar drain trial. However, given her advanced age and recent stroke, pursuing an urgent neurosurgical assessment for NPH is not necessary. Again, I do not think the observed carotid stenoses are clinically significant. Consider obtaining a follow-up carotid ultrasound. Please call with any questions. History of Present Illness Reason for Consultation: stroke, NPH Requesting Physician: Danay Attending Physician: José Luis Knott MD, PhD History of Present Illness The patient is a 79-year-old female with a history of persistent progressive gait dysfunction, has been using a walker over the past year or so, has had a few falls. She also complains of some associated urinary incontinence and mild age-related memory difficulty, although nothing that greatly affects her functioning. Her PCP, Dr. Ely Bain, ordered an outpatient brain MRI. This study was completed at [facility] March 21, 2025 and revealed a probable small subacute infarct within the right cerebellar hemisphere as well as significant dilation of the lateral and third ventricles potentially consistent with normal pressure hydrocephalus. There was a chronic right parietal lobe infarct as well. I independently reviewed these images and was able to appreciate these findings. She had presented to the emergency department yesterday with a comp laint of nausea and vomiting. A repeat brain MRI was completed earlier today that again revealed the above findings, no significant change compared with the previous MRI done March 21. MRA of the neck revealed a 60% stenosis of the right internal carotid artery and a 40% stenosis of the left internal carotid artery. MRA of the head revealed atherosclerotic change, no significant occlusive lesion . An echocardiogram completed this morning revealed normal left ventricular systolic function, mild aortic valve sclerosis, moderate mitral annular calcification, mild mitral stenosis, mild to moderate mitral regurgitation, no interatrial shunt. An electrocardiogram revealed a normal sinus rhythm, 63 bpm. Labs reviewed. Hemoglobin A1c 5.6, triglycerides 76, cholesterol 145, LDL 83, HDL 47. Allergies Allergy/AdvReac Type Severity Reaction Status Date / Time enalapril AdvReac Intermediate COUGH Verified 03/25/25 19:23 Home Medications Medication Instructions Recorded Confirmed Type acetaminophen 325 mg tablet 650 mg (2 x 325 mg) PO Q6H PRN 07/14/24 03/25/25 Rx pain #30 tabs lorazepam 0.5 mg tablet (Ativan) 0.5 mg PO DAILY PRN anxiety #2 tabs 03/19/25 03/25/25 Rx aspirin 81 mg tablet 81 mg PO DAILY #30 tabs 03/21/25 03/25/25 Rx rosuvastatin 40 mg tablet (Crestor) 40 mg PO DAILY #30 tabs 03/21/25 03/25/25 Rx buspirone 5 mg tablet 5 mg PO DAILY PRN anxiety 30 days 03/24/25 03/25/25 Rx #30 tabs diltiazem HCl 240 mg capsule,24 240 mg PO DAILY 90 days #90 caps 03/24/25 03/25/25 Rx hr,extended release (Tiadylt ER) oxybutynin chloride 15 mg 15 mg PO DAILY #30 tabs 03/24/25 03/25/25 Rx tablet,extended release 24 hr potassium chloride 10 mEq 10 meq PO DAILY 90 days #90 tabs 03/24/25 03/25/25 Rx tablet,extended release(part/cryst) triamterene 37.5 1 cap PO DAILY 90 days #90 caps 03/24/25 03/25/25 Rx mg-hydrochlorothiazide 25 mg capsule Patient History Medical History Degenerative joint disease of left hip Hard of hearing Hx of colonic polyps Paresthesia of right foot Lower extremity edema Ambulatory dysfunction Hip arthritis Hyperlipidemia Surgical History Status post left hip replacement Hx of gynecological procedure Hx of right cataract extraction History of colonoscopy History of left cataract extraction History of bilateral tubal ligation History of cholecystectomy Family History Brother Prostate cancer Other No family history of adverse response to anesthesia Denies family history of Ovarian cancer Myocardial infarction Breast cancer Colorectal cancer Social History Smoking Status: Former smoker Tobacco Type: Cigarettes Age Started Using Tobacco: 13; Age Quit Using Tobacco: 64; packs per day: 1.25; Second Hand Exposure: Yes; Do You Dip or Chew Tobacco: No; Tobacco Cessation Education Requested by Patient: No Hx Alcohol Use: No Hx Substance Use: No Preferred Language: [place] Communication Ability: Effective Visual Impairment: No Limitations Hearing Ability: Use of Hearing Aid French Translator Required: No Beliefs That Will Affect Care: None marital status: Current Living Situation: Alone Current Living Situation Comment: with home health services current 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 status: 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, [employer] Other Information That Helps Us Care for You: No Feels Safe at Home: Yes Safety Concerns: Feels Safe At This Time Childhood Exposure to Second-Hand Smoke: Yes Diet: low salt Diet Comment: watches her salt intake, does this by choice caffeine: Yes during the past year weight has: remained stable Dental Care, Regularly: No Physical Activity Frequency: Daily Physical Activity Frequency Comment: walking about 30 min a day Seatbelt Use: always Sunscreen Use: No Assistive Devices: Walker and Wheelchair Review of Systems Constitutional: no fever Eyes: no diplopia Ear, Nose, Mouth, Throat: no hearing loss Respiratory: no dyspnea Cardiovascular: no chest pain Gastrointestinal: as per Subjective / HPI Genitourinary: as per Subjective / HPI and + urinary incontinence Musculoskeletal: no myalgia Integumentary: no rash and no lesions Neurologic: as per Subjective / HPI and + gait abnormality; no localized weakness, no loss of sensation, no tremor(s), no headache(s), no confusion and no memory loss Psychiatric: no depression and no anxiety Hematologic / Lymphatic: no easy bleeding and no easy bruising Exam (Neuro) Constitutional: well developed and well nourished; no acute distress Eyes: normal visual hrao by confrontation, PERRL and EOM intact bilaterally; no nystagmus Neurologic: Oriented to:: Person, Place and Time Memory: Short Term Intact and Remote Intact Attention: Span Intact and Concentration Intact Speech Fluency: negative Dysarthria or Dysfluency Speech Aphasia: negative Aphasia Fund of Knowledge: Current Events, Past History and Vocabulary Cranial Nerves: Normal II, III, IV, , V, VII, VIII, IX, X, XI and XII Motor Strength: Normal Upper Extremities; negative Normal Lower Extremities Motor Tone: Normal Lower Extremities and Normal Upper Extremities Muscle Bulk/Involuntary Movements: No Involuntary Movements; negative Muscle Atrophy Sensation: Light Touch Intact, Pain/Temperature Intact and Proprioception Intact Coordination: Heel-Thomas Abnormal; negative Dysdiadochokinesia or Finger-Nose Abnormal Deep Tendon Reflexes: Rt Triceps: 2+, Lt Triceps: 2+, Rt Biceps: 2+, Lt Biceps: 2+, Rt Brachioradialis: 2+, Lt Brachioradialis: 2+, Rt Patellar: 2+, Lt Patellar: 2+, Rt Ankle: 1+ and Lt Ankle: 1+ Special Tests: negative Babinski Present Results & Data Vital Signs (Past 12 Hours) Vital Signs Temp Pulse Pulse Resp BP Pulse Ox O2 Del Method 03/26/25 16:15 36.5 C 57 L 18 133/74 92 Room Air 03/26/25 11:24 36.6 C 67 18 130/76 93 Room Air 03/26/25 07:53 36.5 C 73 18 158/77 H 94 Room Air 03/26/25 07:48 59 L Coding Level of Care Code 32233 INT INP/OBS CARE 2/55MIN Diagnoses Cerebellar stroke I63.9 NPH (normal pressure hydrocephalus) G91.2
[2025-03-26] MEDS: ACETAMINOPHEN 325 MG TAB PO PRN (20:24)
[2025-03-27] MEDS ORDERED: MICONAZOLE NITRATE POWDER 85 GM EXT PRN (16:52)
--- NOTE | 2025-03-27 19:04 | Hospitalist Progress Note ---
Date of Service March 27, 2025 Assessment & Plan (1) Cerebellar stroke: Plan: As per Physical Therapy and Occupational Therapy Service evaluations on 03/26/2025 and 03/27/2025, patient stands to benefit from a short course of acute rehab. Hence, application for acute rehab @ [facility] has been made earlier today with Labor Operator Preston Julita Hilton. In the interim, continue secondary prophylaxis against CVD utilizing home-scheduled ASA 81mg PO daily and rosuvastatin 40mg PO daily. In addition, I have opted to D/C patient's home-scheduled oxybutynin 15mg PO daily given the strong anti- cholinergic properties of this medication, which can exacerbate/cause dizziness, lightheadedness, N/V/D abdominal pain, etc. (2) Vomiting: Plan: Asymptomatic. Observe. (3) Gait abnormality: Plan: Await daily PT/OT Service evaluations in the 03/28/2025 am with anticipated D/C to [facility] for a short course of acute rehab, pending bed availability @ [facility], and pending patient's health insurance plan approving acute rehab @ [facility], hopefully in the next 1-3 days. (4) NPH (normal pressure hydrocephalus): Plan: cf., MRI brain without contrast (03/26/2025, 7:42am): 1. Right cerebellar tiny ischemic foci with a signal property denoting late acute or early subacute infarct. 2. Brain involutional changes with deep white matter small artery disease. 3. Bilateral cerebral ischemic foci and lacunar infarcts. 4. Findings suggestive of normal pressure hydrocephalus. Given patient's advanced age of 79 years, even if patient does have NPH (normal pressure hydrocephalus), no further evaluation (e.g., lumbar puncture) or intervention (e.g., ventriculo-peritoneal shunt) is warranted at this time. Instead, patient will follow up with her Neurologist Dr. Gatito Llanos within 1-2 weeks of hospital discharge. (5) Hypomagnesemia: Plan: NOT hypomagnesemic: cf., normal Mg 1.8 mg/dL (03/25/2025, 7:00pm). cf., normal Mg 1.9 mg/dL (03/26/2025, 5:32am). s/p magnesium sulfate 1g IV x 1 dose (03/25/2025, 10:04pm). Observe. Plan Patient is a 79-year-old female with past medical history of hyperlipidemia, hypertension, lower extremity edema. Patient presented via EMS due to a prolonged episode of vomiting, dizziness, confusion, and weakness. Patient recently found out on Wednesday that her brain MRI showed a small acute to subacute infarct and concern for atrophy versus NPH. Patient does have difficulty with balance/gait abnormalities, urinary incontinence, and intermittent confusion. She is being admitted for further stroke workup including brain MRI and an giography studies and to have neurology eval. #stroke workup - MRI 03/21 showed 1 centimeters hyperintense focus of right cerebellar hemisphere concerning for small acute to subacute infarct as well as dilation of left ventricle and third ventricle concerning for atrophy versus NPH. Patient with new symptoms 03/25, improved at time of admission. Repeat MRI brain ordered MRI angiography of brain and neck ordered Start baby aspirin daily Continue rosuvastatin 40 Mg daily Ordered lipid panel and A1c with a.m. labs - echo with bubble study ordered Neurology consulted #vomiting 1 episode at home, resolved at time of admission however with persistent nausea. Stroke workup as above. APCT negative for acute changes. Hold triamtereneHCTZ Zofran as needed - clear diet, advance as tolerated - NSS @ 80 ml/hr x 1L #Hypomagnesemia mag 1.8. Likely secondary to GI losses. Renal function stable. 1G IV magnesium ordered Trend magnesium #Bilateral lower extremity edema patient reports chronic for several years, unchanged. Teds ordered Promote leg elevation #Hypertension continue diltiazem. Holding triamtereneHCTZ as above. VTE ppx: SCDs and TEDs, low risk and obs status; consider chemical ppx if pr olonged stay Dispo: med/tele Admission and Anticipated Discharge Date Admission Date: March 27, 2025 Subjective "I feel fine now. No complaints. No more vomit, dizziness, confusion, or weakness. When can I go home? I don't want to go to rehab. I already have home health aides who come to my home 5 days a week, every week. Maybe the Labor Operator can arrange for the physical therapist and 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 therapist to come to my home, instead of me going to rehab." Review of Systems Constitutional: Negative for antecedent/coincident fevers, chills, diaphoresis, cough, wheeze, sore throat, hemoptysis, chest pains, palpitations, pleurisy, nausea, vomiting, diarrhea, abdominal pain, pelvic pain, hematemesis, hematochezia, melena, hematuria, dysuria, frequency, urgency, headaches, dizziness, lightheadedness, visual changes, hearing changes, weakness, falls, syncope, trauma, travel history, sick contacts, or food/drug ingestions novel or new. All other review of systems are reported as negative by the patient on 03/27/2025. Physical Exam Constitutional: eneral appearance: Comfortable, coherent, cooperative. Wide awake and alert. Not confused, lethargic, or obtunded. Speaks in complete, fluent, and articulate sentences without pause, interruption, cough, or wheeze. No facial droop. HEENT: Normocephalic; atraumatic. EOMI. PERRL No rhinorrhea. No pharyngeal discharge. Neck: Supple, no stridor, bruit, goiter, JVD, or HJR. Lymph: No lymphadenopathy. Chest: Symmetric rise and fall with respirations. Non-tender to palpation. Lungs: Clear to auscultation and percussion. No audible wheeze, pectoriloquy, increase in tactile fremitus, or flatness/dullness to percussion at the bases. Heart: RRR, S1S2, no S3 or S4. Grade II/ early systolic murmur @ LLSB without radiation to the carotids, axilla, or back, and which remains invariant in regards to the respiratory cycle. Abd: Soft, non-tender, non-distended. No rebound, guarding, 's si gn, or organomegaly. Bowel sounds auscultated in all 4 quadrants. Ext: No clubbing, cyanosis, or edema. 2+ pedal pulses bilaterally. Skin: No decubitus ulcer, exanthem, or enanthem. Neuro: Alert and oriented in regards to person, place, time, or situation. 5/5 motor strength in all 4 extremities, both proximally and distally. No pronator drift. Urology: No hussein catheter. No urethral discharge. Psych: No suicidal ideation. No homicidal ideation. Results & Data Results & Data Vital Signs (Past 12 Hours) Vital Signs Temp Pulse Resp BP Pulse Ox O2 Del Method 03/27/25 15:33 36.5 C 62 18 131/75 91 Room Air 03/27/25 11:49 36.3 C L 58 L 18 137/79 92 Room Air 03/27/25 08:00 Room Air 03/27/25 07:29 36.4 C L 61 16 136/80 94 Room Air Laboratory Results Fasting lipid panel (03/26/2025, 5:32am): total cholesterol 145, HDL 47, LDL 83, triglycerides 76 HbA1c 5.6% (03/26/2025, 5:32am). TSH 1.452 uIU/mL (03/25/2025, 7:00pm). Diagnostic Findings CT abd/pelvis without IV/oral contrast (03/25/2025, 7:08pm): 1. No CT evidence of an acute abdominal or pelvic abnormality. 2. Moderate to advanced diverticulosis of the entire colon with no pericolonic inflammatory change. 3. Small to moderate hiatal hernia. 4. Advanced atherosclerotic disease of the abdominal aorta. Portable CXR (03/25/2025, 7:08pm): 1. No infiltrate, effusion, cardiomegaly, pulmonary vascular congestion, or pneumothorax (by my review). MRA brain (03/26/2025, 1:50am): 1. Atheromatous changes of the cerebral vessels most evident at the posterior circulation with no significant stenotic lesions or occlusions 2. A negative MRA does not exclude the possibility of small vessel disease or subtle vascular abnormalities. Clinical correlation and follow-up imaging may be warranted based on clinical symptoms and history. MRA neck (03/26/2025, 1:51am): 1. Atherosclerotic changes. 2. Proximal 60% stenosis at the right internal carotid artery. 40% stenosis at left internal carotid artery. 3. Clinical correlation is recommended for further evaluation with carotid- vertebral Doppler US. MRI brain without contrast (03/26/2025, 7:42am): 1. Right cerebellar tiny ischemic foci with a signal property denoting late acute or early subacute infarct. 2. Brain involutional changes with deep white matter small artery disease. 3. Bilateral cerebral ischemic foci and lacunar infarcts. 4. Findings suggestive of normal pressure hydrocephalus. Please correlate clinically. 5. Normal appearance of brain parenchyma, ventricular system, posterior fossa, cranial nerves, vessels, orbits, and skull base. TTE 03/26/2025, 6:13am): 1. LVEF 55-60%. LV wall motion normal. 2. RV normal size and systolic function. 3. LA/RA sizes normal. 4. No . No AI. 5. PV not well seen, but grossly normal. 6. Mild MS. Mild-moderate MR. 7. Mild TR. RVSP normal. 8. Aortic root normal size. Normal IVC diameter and respiratory variation suggests normal CVP. 9. No pericardial effusion. (as per CARDS Dr. Jeffery Morales). PG Care Time/CCT Total # of Minutes Spent Total Time Spent with Patient: Total time spent is greater than 50% in coordination of care (as documented) at patient's floor/unit and/or counseling patient: Coding Level of Care Code 87619 SUB INP/OBS CARE 2/35MIN Diagnoses Cerebellar stroke I63.9 Vomiting R11.10 Gait abnormality R26.9 NPH (normal pressure hydrocephalus) G91.2 Hypomagnesemia E83.42
[2025-03-28 02:59] VITALS: PULSE 64
[2025-03-28 07:33] VITALS: BP 148/81; RESP 16; TEMP 98.1; O2SAT 90
--- NOTE | 2025-03-28 12:55 | Discharge Summary ---
Discharge Summary Date of Service March 28, 2025 Principal Dx & Hospital Course #1 = Principal Diagnosis (1) Cerebellar stroke: As per Physical Therapy and Occupational Therapy Service evaluations on 03/26/2025 and 03/27/2025, patient stands to benefit from a short course of acute rehab. Hence, application for acute rehab @ [facility] has been made earlier today with Lab Intern Preston Julita Hilton. In the interim, continue secondary prophylaxis against CVD utilizing home-scheduled ASA 81mg PO daily and rosuvastatin 40mg PO daily. In addition, I have opted to D/C patient's home-scheduled oxybutynin 15mg PO daily given the strong anti- cholinergic properties of this medication, which can exacerbate/cause dizziness, lightheadedness, N/V/D abdominal pain, etc. (2) Vomiting: Asymptomatic. Observe. (3) Gait abnormality: Await daily PT/OT Service evaluations in the 03/28/2025 am with anticipated D/C to [facility] for a short course of acute rehab, pending bed availability @ [facility], and pending patient's health insurance plan approving acute rehab @ [facility], hopefully in the next 1-3 days. (4) NPH (normal pressure hydrocephalus): cf., MRI brain without contrast (03/26/2025, 7:42am): 1. Right cerebellar tiny ischemic foci with a signal property denoting late acute or early subacute infarct. 2. Brain involutional changes with deep white matter small artery disease. 3. Bilateral cerebral ischemic foci and lacunar infarcts. 4. Findings suggestive of normal pressure hydrocephalus. Given patient's advanced age of 79 years, even if patient does have NPH (normal pressure hydrocephalus), no further evaluation (e.g., lumbar puncture) or intervention (e.g., ventriculo-peritoneal shunt) is warranted at this time. Instead, patient will follow up with her Neurologist Dr. Gatito Llanos within 1-2 weeks of hospital discharge. (5) Hypomagnesemia: NOT hypomagnesemic: cf., normal Mg 1.8 mg/dL (03/25/2025, 7:00pm). cf., normal Mg 1.9 mg/dL (03/26/2025, 5:32am). s/p magnesium sulfate 1g IV x 1 dose (03/25/2025, 10:04pm). Observe. Plan Discharge to [facility] inpatient rehabilitation facility today, March 28 Admission HPI Per Admitting Provider Patient is a 79-year-old female with past medical history of hyperlipidemia, hy pertension, lower extremity edema. Patient presented via EMS due to a prolonged episode of vomiting, dizziness, confusion, and weakness. Patient recently found out on Wednesday that her brain MRI showed a small acute to subacute infarct and concern for atrophy versus NPH. Patient does have difficulty with balance/gait abnormalities, urinary incontinence, and intermittent confusion. She is being admitted for further stroke workup given episode today including brain MRI and angiography studies and to have neurology eval. Patient seen at bedside with her [id number] present. She stated she is daily home health and when they were visiting today she had a prolonged episode of vomiting in which she threw up her Alex Antwan's breakfast bowl which she thought may have been bad. he came in via EMS and received Zofran 4 Mg IV en route. Her [id number] was concerned given the patient reported dizziness, weakness and seemed mildly confused after the episode. Patient stated she does remember feeling dizzy however now feels back to her baseline. Patient had an MRI with her PCP due to persistent gait abnormalities, confusion, and urinary incontinence after having an abnormal head CT. The MRI on 03/21 showed a 1 cm hyperintense focus of the right cerebellar hemisphere concerning for small acute to subacute infarct. Also dilated left ventricle and third ventricle concerning for atrophy versus NPH. Patient stated she uses a walker at baseline however frequently has balance issues and is slow due to concern for fall. She currently denies any headaches, dizziness, lightheadedness, chest pain, shortness of breath, vomiting, abdominal pain, diarrhea, dysuria. She is feeling nauseous, Zofran ordered. She does not use nicotine products or drink alcohol. She did take all of her morning medications today. On Wednesday her PCP increase her cholesterol medication from 10 Mg daily to 40 Mg daily and started her on a baby aspirin which she has not yet started. She wishes to be DNR/DNI. Discharge Plan Discharge Items Patient Disposition: Transfer Inpatient Rehab Fac Reason For Visit: STROKE WORKUP/ KNOWN INFARCT Discharge Diagnosis: Ischemic left cerebellar CVA Condition on Discharge: Good Activity: Per Instructions section Activity Comment: Up with assistance only Non-emergency contact: Primary Care Provider Call non-emergency contact if: your symptoms worsen Follow-up/Referrals: Ely Bain MD [Primary Care Provider] - Diet: Regular and Heart Healthy Addtl Attending Provider Instructions: See primary care provider soon as possible after discharge from [facility] Pending Studies at Discharge: No Stand-Alone Forms: [facility] Skilled Items Patient informed of condition?: Yes DNR: Yes Discharge Level of Care: Acute rehab Communicable Disease: No Discharge Prognosis: Improving Lines: None Urinary Catheter: No Medications and DC Order Prescriptions: Continued lorazepam [Ativan] 0.5 mg tablet 0.5 mg PO DAILY PRN (Reason: anxiety) Qty: 2 0RF Rx Instructions: Take 1 hour prior to MRI -- may repeat dose if necessary rosuvastatin [Crestor] 40 mg tablet 40 mg PO DAILY Qty: 30 2RF aspirin 81 mg tablet 81 mg PO DAILY Qty: 30 2RF Rx Instructions: PER PT'S FAMILY "HAS NOT STARTED YET". buspirone 5 mg tablet 5 mg PO DAILY PRN (Reason: anxiety) 30 Days Qty: 30 2RF diltiazem HCl [Tiadylt ER] 240 mg capsule,extended release 24hr 240 mg PO DAILY 90 Days Qty: 90 3RF potassium chloride 10 mEq tablet,ER particles/crystals 10 meq PO DAILY 90 Days Qty: 90 1RF oxybutynin chloride 15 mg tablet extended release 24hr 15 mg PO DAILY Qty: 30 2RF triamterene-hydrochlorothiazid 37.5-25 mg capsule 1 cap PO DAILY 90 Days Qty: 90 2RF acetaminophen 325 mg Tablet 650 mg PO Q6H PRN (Reason: pain) Qty: 30 0RF Discharge Orders: Discharge Order (Routine); Ordered 03/28/25 Ordered By: Kushal Goetz Admission Data Admit Date/Time: 03/27/25 11:07 Attending Provider: Kushal Goetz Admit Provider: Young Arthur Primary Care Provider: Ely Bain Other Providers: Young Arthur; Delfin Villar; [facility]; [facility]; [facility] Hospital Stay Data Consultations 03/25/25 21:40 ED Decision to Admit Stat 03/25/25 23:08 Consult Neurology Routine Diagnostic Imagining Performed 03/25/25 19:08 CT abd pelvis wo con Stat 03/26/25 01:50 MR angio head wo con Stat 03/26/25 01:51 MR angio neck wo/w con Stat 03/26/25 21:18 MR brain wo con Stat Pending Results Patient Have Any Pending Studies at Discharge: No Discharge Instructions Given to Patient (Per Discharging Provider) See primary care provider soon as possible after discharge from [facility] Total Time Total Time Spent Total Time Spent (In Minutes): 45-minute Coding Level of Care Code 23511 INP/OBS DISCH >30 MIN Diagnoses Cerebellar stroke I63.9 Vomiting R11.10 Gait abnormality R26.9 NPH (normal pressure hydrocephalus) G91.2 Hypomagnesemia E83.42
== END 2025-03-28 14:11 | DRG 65 ==
LOC: SUATTDRO → 2N 18:48 → ED 18:48 → SUATTDRO 21:33 → 2N 22:21 → SUATTDRO 03-27 11:07

== ENCOUNTER 2025-07-29 06:35 | Inpatient (IN) ==
--- NOTE | 2025-07-29 06:54 | Emergency Department Note ---
Impression & Plan Unable to ambulate, NPH (normal pressure hydrocephalus), Musculoskeletal pain of left thigh ED Provider Note NAME: AJITH KEITH AGE: 80 SEX: F : 1945 ARRIVES VIA: Ambulance INFORMANT: Patient ED PROVIDER(S): James Nova MD CHIEF COMPLAINT: Left hip pain PLAN: Disposition: Admit MEDICAL DECISION MAKING: The patient is a pleasant 80-year-old woman with a past medical history of left MANOJ, NPH, hypertension, CVA who presents to the emergency department via EMS for evaluation of left hip pain which she reports has been ongoing since Wednesday where it is difficult to bear weight. Patient denies any falls. She reports it simply started hurting. She does not recollect any time where she may have bent over and felt onset of symptoms. She reports she does walk with a walker normally. Patient's [id number] did eventually arrive to the bedside and further clarified that the patient has been having ongoing weakness in her left lower extremity which has been attributed to her history of NPH. She feels over several weeks this weakness has been worsening. While the patient does have home services such as home health which was scheduled to visit her this morning she feels the patient is unsteady and unsafe to be at home at this time. On evaluation the patient no acute distress, afebrile stable vital signs. She has tenderness of the left upper thigh and inguinal region. No overt shortening. Distal PMS is intact. She is unable to raise her left leg off the bed which appears to be related to pain in her hip. She exhibits normal foot and ankle strength/movement. Initial assessment performed based on patient's history alone and so x-ray of the pelvis and left hip was performed and was negative for fracture or dislocation. Subsequently CT of the abdomen pelvis and lumbar spine without contrast obtained and was negative for acute intra-abdominal process or fracture or dislocation of the pelvis or lumbar spine. Following discussion with the patient's [id number] additional testing performed. EKG without overt acute ischemia. WBC, H/H and platelets within normal limits. Chemistry without metabolic acidosis. BUNs/creatinine 20 consistent with patient's clinically dry appearance. LFTs unremarkable. TSH within limits. CT of the head was obtained and was negative for acute abnormalities. There is unchanged ventricular dilation suggestive of NPH. Chronic microvascular ischemic disease with chronic right temporal parietal encephalomalacia is unchanged. Given the patient's worsening functional status which may be multifactorial including a component of her chronic left lower extremity weakness with new component of muscular strain potentially related to the her impaired mobility patient was referred to the hospital service for further management and anticipated placement. Case was discussed with Dr. Finney, [facility] hospitalist, who will evaluate the patient for admission. Further management per admitting team. Triage Nursing notes reviewed and agree them. Prior/external medical records reviewed Vital Signs: reviewed Differential diagnosis: Infection, dehydration, metabolic abnormality, hypo/hyperglycemia, electrolyte disturbance, anemia, hypoxia, cardiac sources, intracerebral event, toxicologic, neurologic, as well as other pathologies. ER treatment provided: See below. Diagnostics interpreted by me: ECG: Normal sinus rhythm, 68 bpm, no ectopy, no overt ST elevation or depression, QTc 442, QRS 94. Cardiac Monitoring: An order for continuous cardiac monitoring was placed and demonstrated normal sinus rhythm, 68 bpm, no ectopy. Laboratory studies: See below Imaging studies: See below Consultation(s): Case was discussed with Dr. Finney, [facility] hospitalist, who will evaluate the patient for admission. HPI: Per MDM. ROS: See above HPI for pertinent positives & negatives. A total of 10 systems reviewed and were otherwise negative. VITALS:See Below PHYSICAL EXAMINATION: GENERAL: Awake, alert, well-appearing, in no distress HENT: Normocephalic, atraumatic. Oropharynx with dry mucous membranes and otherwise unremarkable. EYES: Normal conjunctiva. Sclera non-icteric. NECK: Supple. No nuchal rigidity. FROM. No JVD. RESPIRATORY: Clear to auscultation. CARDIAC: Regular rate, normal rhythm. Extremities warm and well perfused. Pulses equal. ABDOMEN: Soft, non-distended. No tenderness to palpation. No rebound or guarding. No masses. MUSCULOSKELETAL: Chest examination reveals no tenderness. The back is symmetrical on inspection without obvious abnormality. There is no CVA tenderness to palpation. tenderness of the left upper thigh and inguinal region. No overt shortening. Distal PMS is intact. LOWER EXTREMITIES: Calves are equal size bilaterally and non-tender. No edema. No discoloration. NEURO: Normal sensorium. No sensory or motor deficits noted. SKIN: No rash or jaundice noted. James Nova MD Past Med/Surg History Problem List (Updated 07/30/25 @ 15:31 by James Nova MD) Unable to ambulate (Acute) Musculoskeletal pain of left thigh (Acute) Lower extremity edema (Chronic) Hyperlipidemia (Chronic) NPH (normal pressure hydrocephalus) (Chronic) 04/2024 [facility] hospitalization Follows with [facility] neuro, current plan for monitoring/no intervention planned at this time Carotid stenosis, right Hypertension (Chronic) Medical History Mitral valve disease Echo 03/26/25: Mild mitral stenosis. Mild to moderate MR Impaired fasting glucose Per records HgbA1C 03/26/25 5.6% Carotid stenosis, bilateral Cerebellar stroke 03/26/2025 ([facility] hospitalizaton) Son denies any noticable deficits, states patient does have mild short term memory deficit. Alert & oriented x3, signs own consents, uses walker to ambulate Degenerative joint disease of left hip Hard of hearing Does not wear hearing aids Hx of colonic polyps Paresthesia of right foot Chronic Ambulatory dysfunction Uses walker or wheelchair PRN Surgical History Status post left hip replacement (07/2024) Hx of gynecological procedure Rectocele repair Hx of right cataract extraction History of colonoscopy History of left cataract extraction History of bilateral tubal ligation History of cholecystectomy Family History Brother Prostate cancer Other No family history of adverse response to anesthesia Denies family history of Ovarian cancer Myocardial infarction Breast cancer Colorectal cancer Social History Smoking Status: Former smoker Tobacco Type: Cigarettes Age Started Using Tobacco: 13; Age Quit Using Tobacco: 64; packs per day: 1.25; Second Hand Exposure: Yes (hx as a child); Do You Dip or Chew Tobacco: No; Hx Alcohol Use: No Hx Substance Use: No Preferred Language: [place] Zealander Communication Ability: Effective Communication Ability Comment: SPEAK CLOSE TO THE PATIENT Visual Impairment: No Limitations Hearing Ability: Use of Hearing Aid 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 Required: No Beliefs That Will Affect Care: None marital status: Current Living Situation: Alone Current Living Situation Comment: HOME HEALTH COME IN current 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 status: 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, [employer] Feels Safe at Home: Yes Childhood Exposure to Second-Hand Smoke: Yes Diet: low salt Diet Comment: watches her salt intake, does this by choice caffeine: Yes during the past year weight has: remained stable Dental Care, Regularly: No Physical Activity Frequency: Daily Physical Activity Frequency Comment: walking about 30 min a day Seatbelt Use: always Sunscreen Use: No Assistive Devices: Walker Allergies Allergies Allergy/AdvReac Type Severity Reaction Status Date / Time enalapril AdvReac Intermediate Cough Verified 07/10/25 08:45 Home Meds Home Medications Medication Instructions Recorded Confirmed aspirin 81 mg tablet 81 mg PO QAM 05/23/25 07/29/25 diltiazem HCl 240 mg capsule,24 240 mg PO QAM 05/23/25 07/29/25 hr,extended release (Tiadylt ER) potassium chloride 10 mEq 10 meq PO QAM 05/23/25 07/29/25 tablet,extended release(part/cryst) rosuvastatin 40 mg tablet (Crestor) 40 mg PO HS 05/23/25 07/29/25 triamterene 37.5 1 cap PO QAM 05/23/25 07/29/25 mg-hydrochlorothiazide 25 mg capsule solifenacin 10 mg tablet (Vesicare) 10 mg PO QAM 07/29/25 07/29/25 Previous Rx's Medication Instructions Recorded acetaminophen 325 mg tablet 650 mg (2 x 325 mg) PO Q6H PRN 07/14/24 pain #30 tabs Results & Data (ED) Vital Signs Vital Signs - 24 hr 07/29/25 06:43 07/29/25 06:50 07/29/25 08:00 Temperature 36.6 C Temperature Source Oral Pulse Rate 62 Pulse Rate [Right Finger] 66 Pulse Rhythm [Right Finger] Pulse Strength [Right Finger] Respiratory Rate 18 17 Respiratory Effort / Characteristics Non-Labored Non-Labored Spontaneous Respiratory Depth Normal Normal Blood Pressure 141/83 H Blood Pressure [Left Arm] 154/81 H Blood Pressure Mean 102 Blood Pressure Mean [Left Arm] 105 Blood Pressure Position [Left Arm] Semi-fowlers Pulse Oximetry 96 96 Oxygen Delivery Method Room Air Room Air Sepsis Recent Fever Within 48 Hours No Sepsis New/Unexplained Change in Mental Status No Sepsis Action Taken by Nursing No Action Required 07/29/25 10:00 07/29/25 12:00 07/29/25 12:26 Temperature Temperature Source Pulse Rate Pulse Rate [Right Finger] 60 61 Pulse Rhythm [Right Finger] Regular Pulse Strength [Right Finger] Normal Respiratory Rate 17 19 Respiratory Effort / Characteristics Non-Labored Spontaneous Non-Labored Spontaneous Respiratory Depth Normal Normal Blood Pressure Blood Pressure [Left Arm] 139/71 143/75 H Blood Pressure Mean Blood Pressure Mean [Left Arm] 93 97 Blood Pressure Position [Left Arm] Semi-fowlers Semi-fowlers Pulse Oximetry 95 95 94 Oxygen Delivery Method Room Air Room Air Room Air Sepsis Recent Fever Within 48 Hours Sepsis New/Unexplained Change in Mental Status Sepsis Action Taken by Nursing Laboratory Data Attestation: I reviewed the patient's lab results. 07/29/25 12:07/29/25 12: Lab Results 07/29/25 07/29/25 Range/Units 12: 12:12 WBC 7.11 (4.8-10.8) K/ul RBC 4.26 (4.20-5.40) M/uL Hgb 13.0 (12.0-16.0) g/dL POC Hgb 12.6 (12.0-16.0) g/dl Hct 39.1 (37.0-47.0) % POC Hct 37 (37-47) % MCV 91.8 (80.0-100.0) fL MCH 30.5 (25.0-34.0) pg MCHC 33.2 (32.0-36.0) g/dL RDW Std Deviation 44.0 (36.4-46.3) fL RDW Coeff of Mitchell 13.1 (11.5-14.5) % Plt Count 245 (130-400) K/uL MPV 9.6 (9.4-12.4) fL Immature Gran % (Auto) 0.6 % Neut % (Auto) 70.2 % Lymph % (Auto) 15.6 % Terrell % (Auto) 10.7 % Eos % (Auto) 2.3 % Baso % (Auto) 0.6 % Neut # (Auto) 5.00 (1.40-6.50) K/uL Lymph # (Auto) 1.11 L (1.20-3.40) K/uL Terrell # (Auto) 0.76 H (0.11-0.59) K/uL Eos # (Auto) 0.16 (0.00-0.50) K/uL Baso # (Auto) 0.04 (0.00-0.20) K/uL Immature Gran # (Auto) 0.04 (0.01-0.20) K/uL PT 10.6 (9.0-12.0) Seconds INR 1.0 (0.9-1.1) POC Sodium 138 (135-144) mmol/L Sodium 139 (136-145) mmol/L POC Potassium 3.7 (3.3-5.0) mmol/L Potassium 3.7 (3.5-5.1) mmol/L POC Chloride 100 L (101-112) mmol/L Chloride 103 (98-107) mmol/L Carbon Dioxide 29 (21-32) mmol/L POC Total CO2 25 (24-31) mmol/L Anion Gap 7 (3-11) POC Anion Gap 17.0 (16-25) mmol/L POC BUN 24 H (7-18) mg/dl BUN 24 H (6-23) mg/dl Creatinine 1.15 (0.6-1.2) mg/dl POC Creatinine 1.4 H (0.6-1.3) mg/dl Est Cr Clr Drug Dosing 43.1 ml/min eGFR 48.16 BUN/Creatinine Ratio 20.9 H (10-20) Glucose 90 (70-99(Fasting)) mg/dl POC Glucose (other) 93 (70-99) mg/dl Calcium 8.9 (8.6-10.3) mg/dl POC Ioniz Calcium Valerio 1.16 (1.12-1.32) mmol/l Magnesium 1.7 (1.7-2.4) mg/dl Total Bilirubin 0.6 (0.2-1.0) mg/dl AST 13 (13-39) U/L ALT 12 (7-52) U/L Alkaline Phosphatase 70 (34-104) U/L Total Creatine Kinase 31 (26-192) U/L Total Protein 6.2 (6.0-8.3) gm/dl Albumin 3.6 (3.4-5.0) gm/dl Globulin 2.6 (2.5-4.0) gm/dl Albumin/Globulin Ratio 1.4 (0.9-2) TSH 1.144 (0.300-4.500) uIu/ml Administered Medications Aspirin (Aspirin 81 Mg Ectab) 81 mg PO [facility] Stop: 08/29/25 08:59 Last Admin: 07/30/25 09:14 Dose: 81 mg Documented By: win Diltiazem HCl (Diltiazem Hcl 240 Mg Capcr) 240 mg PO QAM [facility] Stop: 08/29/25 08:59 Last Admin: 07/30/25 09:14 Dose: 240 mg Documented By: win Enoxaparin Sodium (Enoxaparin Inj 40 Mg/0.4 Ml Syr) 40 mg SQ Q24H [facility] Stop: 08/28/25 16:59 Last Admin: 07/29/25 18:56 Dose: Not Given Documented By: win Potassium Chloride (Potassium Chloride 10 Meq Tabcr) 10 meq PO [facility] Stop: 08/29/25 08:59 Last Admin: 07/30/25 09:47 Dose: 10 meq Documented By: win Triamterene/Hydrochlorothiazide (Triamterene/Hctz 37.5/25mg Tab) 1 tab PO [facility] Stop: 08/29/25 08:59 Last Admin: 07/30/25 09:14 Dose: 1 tab Documented By: win Discontinued Medications Sodium Chloride (Nss) 1,000 mls @ 999 mls/hr IV .Q1H1M ONE Stop: 07/29/25 12:42 Last Infusion: 07/29/25 13:45 Dose: Infused Documented By: Admin: 07/29/25 12:03 Dose: 999 mls/hr Documented By: braulio Acetaminophen (Ofirmev) 1,000 mg in 100 mls @ 400 mls/hr IV NOW STA Stop: 07/29/25 11:56 Last Infusion: 07/29/25 13:45 Dose: Infused Documented By: Admin: 07/29/25 12:02 Dose: 400 mls/hr Documented By: braulio Imaging Data Radiologist's Impression: Head CT 07/29/25 11:41 CT head/brain wo con CLINICAL HISTORY: 80 years-old Female with NPH, LLE weakness. Acute weakness with normal pressure hydrocephalus TECHNIQUE: Multiple axial CT images of the head were obtained without contrast. A dose lowering technique was utilized adhering to the principles of ALARA. CT DOSE: 580.53 mGy.cm COMPARISON: 04/24/2025 FINDINGS: No acute intracranial hemorrhage, midline shift, intracranial mass, acute territorial ischemia or abnormal extra-axial collection. Involutional changes with chronic microvascular ischemic disease redemonstrated. Right temporoparietal encephalomalacia again noted along with smaller areas of encephalomalacia within the cerebellum. Dilated ventricular system is again seen with transverse dimension of the lateral ventricles measuring up to approximately 5.5 cm, previously 5.4 cm. The calvarium is intact. Trace mastoid effusions. Paranasal sinuses are generally clear. IMPRESSION: 1. No acute intracranial abnormality. 2. Unchanged ventricular dilation suggestive of normal pressure hydrocephalus. 3. Chronic microvascular ischemic disease with chronic right temporoparietal encephalomalacia. ACT 112: Negative or not required by law. The above report was generated using voice recognition software. It may contain grammatical, syntax or spelling errors. Electronically signed by: Brad Poon M.D. 07/29/2025 1:50 PM Hip/Pelvis X-Ray 07/29/25 06:53 EXAM: XR hip LT 2V w pelvis CLINICAL HISTORY: pain TECHNIQUE: X-ray images of the left hip joint in AP and lateral projections, and pelvis in AP projection. COMPARISON: Compared to the previous study performed on 01/26/2025 CR FINDINGS: Hip joints: There is evidence of a total left hip arthroplasty. No evidence of loosening or infection. The hip joints are normal with preserved joint spaces. No evidence of hip dislocation, subluxation, or significant degenerative changes. No osteophytes, joint space narrowing, or sclerosis noted. Symphysis pubis: The symphysis pubis is normal and intact. No evidence of separation or widening. Soft tissues: The visualized soft tissues are normal and unremarkable. No soft tissue swelling, calcifications, or masses. Additional findings: No other significant abnormalities are noted. IMPRESSION: 1. Left hip total arthroplasty with no evidence of complications. 2. No evidence of acute fractures, dislocations, or significant degenerative changes. 3. No significant changes compared to the last study. Disclaimer: A subtle bone abnormality or fracture may not be readily apparent on X-rays, thus clinical correlation and further imaging including follow-up CT, MRI, or follow-up X-rays are advised as needed. Electronically signed by Arun Lamas 07-29-2025 09:19 AM Abdomen/Pelvis CT 07/29/25 08:[address] WITHOUT CONTRAST; CT LUMBAR SPINE WITHOUT IV CONTRAST HISTORY: Acute abdominal and low back pain left hip pain TECHNIQUE: Multiaxial CT images of the abdomen, pelvis and lumbar spine were performed without contrast. A dose lowering technique was utilized adhering to the principles of ALARA. COMPARISON STUDY: CT abdomen and pelvis 04/24/2025 FINDINGS: CT ABDOMEN AND PELVIS: Coronary artery with prominent mitral annular calcifications. The lung bases are generally clear. No pneumatosis or pneumoperitoneum. The unenhanced spleen, pancreas, liver and adrenal glands are unremarkable. Cholecystectomy. Punctate nonobstructing calculus of the inferior pole right kidney. There are a few bilateral renal vascular calcifications noted. Probable cyst of the superior pole left kidney, 1.3 cm. No ureteral calculi or hydronephrosis. Distended urinary bladder. Pelvic floor relaxation. Atherosclerosis of the aorta and branch vessels. No lymphadenopathy. Mild distal esophageal wall thickening with a small hiatal hernia. Duodenal diverticulum. Colonic diverticulosis without acute diverticulitis. Moderate colonic fecal retention. Normal appendix. Unremarkable appearance of the left hip arthroplasty. No acute fracture identified. CT LUMBAR SPINE: Demineralized appearance of the bones. Vacuum disc phenomenon noted at L2-L3 and L5-S1. Severe intervertebral disc space narrowing with prominent spondylitic spurring and posterior disc osteophyte complex at L1-L2. Moderate to severe multilevel facet arthropathy. Lumbar levoscoliosis. Mild to moderate degeneration of the SI joints. Suboptimal evaluation of the central canal and neural foramen by CT technique. Mild central canal stenosis at L2-L3 and L4-L5. IMPRESSION: 1. No acute intra-abdominal or intrapelvic abnormality. 2. No acute fracture or subluxation of the lumbar spine. 3. Incidental findings as above. ACT 112: Negative or not required by law. The above report was generated using voice recognition software. It may contain grammatical, syntax or spelling errors. Electronically signed by: Brad Poon M.D. 07/29/2025 9:[address] 07/29/25 08:[address] WITHOUT CONTRAST; CT LUMBAR SPINE WITHOUT IV CONTRAST HISTORY: Acute abdominal and low back pain left hip pain TECHNIQUE: Multiaxial CT images of the abdomen, pelvis and lumbar spine were performed without contrast. A dose lowering technique was utilized adhering to the principles of ALARA. COMPARISON STUDY: CT abdomen and pelvis 04/24/2025 FINDINGS: CT ABDOMEN AND PELVIS: Coronary artery with prominent mitral annular calcifications. The lung bases are generally clear. No pneumatosis or pneumoperitoneum. The unenhanced spleen, pancreas, liver and adrenal glands are unremarkable. Cholecystectomy. Punctate nonobstructing calculus of the inferior pole right kidney. There are a few bilateral renal vascular calcifications noted. Probable cyst of the superior pole left kidney, 1.3 cm. No ureteral calculi or hydronephrosis. Distended urinary bladder. Pelvic floor relaxation. Atherosclerosis of the aorta and branch vessels. No lymphadenopathy. Mild distal esophageal wall thickening with a small hiatal hernia. Duodenal diverticulum. Colonic diverticulosis without acute diverticulitis. Moderate colonic fecal retention. Normal appendix. Unremarkable appearance of the left hip arthroplasty. No acute fracture identified. CT LUMBAR SPINE: Demineralized appearance of the bones. Vacuum disc phenomenon noted at L2-L3 and L5-S1. Severe intervertebral disc space narrowing with prominent spondylitic spurring and posterior disc osteophyte complex at L1-L2. Moderate to severe multilevel facet arthropathy. Lumbar levoscoliosis. Mild to moderate degeneration of the SI joints. Suboptimal evaluation of the central canal and neural foramen by CT technique. Mild central canal stenosis at L2-L3 and L4-L5. IMPRESSION: 1. No acute intra-abdominal or intrapelvic abnormality. 2. No acute fracture or subluxation of the lumbar spine. 3. Incidental findings as above. ACT 112: Negative or not required by law. The above report was generated using voice recognition software. It may contain grammatical, syntax or spelling errors. Electronically signed by: Brad Poon M.D. 07/29/2025 9:[address] 07/29/25 11:41 CT head/brain wo con CLINICAL HISTORY: 80 years-old Female with NPH, LLE weakness. Acute weakness with normal pressure hydrocephalus TECHNIQUE: Multiple axial CT images of the head were obtained without contrast. A dose lowering technique was utilized adhering to the principles of ALARA. CT DOSE: 580.53 mGy.cm COMPARISON: 04/24/2025 FINDINGS: No acute intracranial hemorrhage, midline shift, intracranial mass, acute territorial ischemia or abnormal extra-axial collection. Involutional changes with chronic microvascular ischemic disease redemonstrated. Right temporoparietal encephalomalacia again noted along with smaller areas of encephalomalacia within the cerebellum. Dilated ventricular system is again seen with transverse dimension of the lateral ventricles measuring up to approximately 5.5 cm, previously 5.4 cm. The calvarium is intact. Trace mastoid effusions. Paranasal sinuses are generally clear. IMPRESSION: 1. No acute intracranial abnormality. 2. Unchanged ventricular dilation suggestive of normal pressure hydrocephalus. 3. Chronic microvascular ischemic disease with chronic right temporoparietal encephalomalacia. ACT 112: Negative or not required by law. The above report was generated using voice recognition software. It may contain grammatical, syntax or spelling errors. Electronically signed by: Brad Poon M.D. 07/29/2025 1:50 PM Discharge Plan Visit Data Chief Complaint: Leg Injury/Pain Stated Complaint: L LEG AND HIP PAIN WHEN STANDING ED Provider: James Nova Discharge Problem: Unable to ambulate, NPH (normal pressure hydrocephalus), Musculoskeletal pain of left thigh Patient Disposition: Admitted As Inpatient Condition: Fair Discharge Instructions Interventions: ED Discharge Assessment Last Done: 07/29/25 15:00
--- NOTE | 2025-07-29 09:20 | XRay Report ---
EXAM: XR hip LT 2V w pelvis CLINICAL HISTORY: pain TECHNIQUE: X-ray images of the left hip joint in AP and lateral projections, and pelvis in AP projection. COMPARISON: Compared to the previous study performed on 01/26/2025 CR FINDINGS: Hip joints: There is evidence of a total left hip arthroplasty. No evidence of loosening or infection. The hip joints are normal with preserved joint spaces. No evidence of hip dislocation, subluxation, or significant degenerative changes. No osteophytes, joint space narrowing, or sclerosis noted. Symphysis pubis: The symphysis pubis is normal and intact. No evidence of separation or widening. Soft tissues: The visualized soft tissues are normal and unremarkable. No soft tissue swelling, calcifications, or masses. Additional findings: No other significant abnormalities are noted. IMPRESSION: 1. Left hip total arthroplasty with no evidence of complications. 2. No evidence of acute fractures, dislocations, or significant degenerative changes. 3. No significant changes compared to the last study. Disclaimer: A subtle bone abnormality or fracture may not be readily apparent on X-rays, thus clinical correlation and further imaging including follow-up CT, MRI, or follow-up X-rays are advised as needed. Electronically signed by Arun Lamas 07-29-2025 09:19 AM
--- NOTE | 2025-07-29 09:58 | CT Scan Report ---
ABDOMEN AND PELVIS CT WITHOUT CONTRAST; CT LUMBAR SPINE WITHOUT IV CONTRAST HISTORY: Acute abdominal and low back pain left hip pain TECHNIQUE: Multiaxial CT images of the abdomen, pelvis and lumbar spine were performed without contra st. A dose lowering technique was utilized adhering to the principles of ALARA. COMPARISON STUDY: CT abdomen and pelvis 04/24/2025 FINDINGS: CT ABDOMEN AND PELVIS: Coronary artery with prominent mitral annular calcifications. The lung bases a re generally clear. No pneumatosis or pneumoperitoneum. The unenhanced spleen, pancreas, liver and ad renal glands are unremarkable. Cholecystectomy. Punctate nonobstructing calculus of the inferior pole right kidney. There are a few bilateral renal vascular calcifications noted. Probable cyst of the miller perior pole left kidney, 1.3 cm. No ureteral calculi or hydronephrosis. Distended urinary bladder. Pe lvic floor relaxation. Atherosclerosis of the aorta and branch vessels. No lymphadenopathy. Mild distal esophageal wall thickening with a small hiatal hernia. Duodenal diverticulum. Colonic div erticulosis without acute diverticulitis. Moderate colonic fecal retention. Normal appendix. Unremark able appearance of the left hip arthroplasty. No acute fracture identified. CT LUMBAR SPINE: Demineralized appearance of the bones. Vacuum disc phenomenon noted at L2-L3 and L5- S1. Severe intervertebral disc space narrowing with prominent spondylitic spurring and posterior disc osteophyte complex at L1-L2. Moderate to severe multilevel facet arthropathy. Lumbar levoscoliosis. Mild to moderate degeneration of the SI joints. Suboptimal evaluation of the central canal and neural foramen by CT technique. Mild central canal stenosis at L2-L3 and L4-L5. IMPRESSION: 1. No acute intra-abdominal or intrapelvic abnormality. 2. No acute fracture or subluxation of the lumbar spine. 3. Incidental findings as above. ACT 112: Negative or not required by law. The above report was generated using voice recognition software. It may contain grammatical, syntax o r spelling errors. Electronically signed by: Brad Poon M.D. 07/29/2025 9:56 AM
[2025-07-29] MEDS: ACETAMINOPHEN 1,000 MG/100 ML VIAL IV STA (12:02)
[2025-07-29] MEDS: SODIUM CHLORIDE 0.9% 1,000 ML IV ONE (12:03)
[2025-07-29 12:22] LABS: Hematocrit (blood only) 39.1 % (37.0-47.0); Hemoglobin 13.0 g/dL (12.0-16.0); Immature Granulocytes # (auto) 0.04 K/uL (0.01-0.20); Immature Granulocytes % (auto) 0.6 %; Mean Corpuscular Hemoglobin 30.5 pg (25.0-34.0); Mean Corpuscular Volume 91.8 fL (80.0-100.0); Platelet Count 245 K/uL (130-400); RDW Standard Deviation 44.0 fL (36.4-46.3); Red Blood Count 4.26 M/uL (4.20-5.40); White Blood Count 7.11 K/ul (4.8-10.8)
[2025-07-29 12:38] LABS: Alanine Aminotransferase 12.0 U/L (7-52); Albumin Globulin Ratio 1.4 (0.9-2); Albumin Level 3.6 gm/dl (3.4-5.0); Alkaline Phosphatase 70.0 U/L (34-104); Anion Gap 7.0 (3-11); Bilirubin,Total 0.6 mg/dl (0.2-1.0); Blood Urea Nitrogen 24.0 mg/dl (6-23); Calcium 8.9 mg/dl (8.6-10.3); Carbon Dioxide 29.0 mmol/L (21-32); Chloride 103.0 mmol/L (98-107); Creatine Kinase 31.0 U/L (26-192); Creatinine Clr Calc Pharmacy 43.1 ml/min; Globulin 2.6 gm/dl (2.5-4.0); Glucose 90.0 mg/dl (70-99(Fasting)); Magnesium 1.7 mg/dl (1.7-2.4); Potassium 3.7 mmol/L (3.5-5.1); Sodium 139.0 mmol/L (136-145); Total Protein 6.2 gm/dl (6.0-8.3)
[2025-07-29 12:47] LABS: INR 1.0 (0.9-1.1); Prothrombin Time 10.6 Seconds (9.0-12.0)
[2025-07-29 12:53] LABS: Thyroid Stimulating Hormone 1.144 uIu/ml (0.300-4.500)
--- NOTE | 2025-07-29 13:37 | History & Physical Report ---
Date of Service July 29, 2025 Assessment & Plan (1) Musculoskeletal pain of left thigh: (2) Unable to ambulate: (3) NPH (normal pressure hydrocephalus): Plan In summary this is an 80-year-old female who presents after inability to safely ambulate due to progressive left thigh pain and weakness Suspect the patient has suffered a subacute left thigh adductor and quadricep strain or sprain resulting in sudden progressive inability to ambulate without significant discomfort superimposed on underlying sarcopenia/anasarca; without any acute evidence on imaging or laboratory assessment of a secondary cause nor is there examination consistent with a focal neurologic deficit that would be consequential of a TIA/CVA PT/OT consulted Anticipate either placement or discharge home with home health based on recommendations There was some degree of concern by the patient's ED provider for progressive normal pressure hydrocephalus however based on radiologist interpretation and my personal interpretation of the patient's CT head without contrast, there is been no significant progression nor her presenting findings consistent with symptomatic normal pressure hydrocephalus that would require lumbar puncture The remainder the patient's chronic medical conditions are stable and do not require adjustment to their outpatient regimen at this time DVT PPx: Start Lovenox 40 mg SQ daily Admission and Anticipated Discharge Date Admission Date: 07/29/2025 Anticipated date of discharge: 07/31/25 History of Present Illness Chief Complaint: Inability to ambulate, left thigh pain Primary Care Provider: Ely Bain MD Ms. Pastor is an 80-year-old female whose active medical conditions include normal pressure hydrocephalus, carotid stenosis, essential hypertension, chronic venous insufficiency, mixed hyperlipidemia with history of cerebellar CVA without residual deficit who presented to the [facility] on 07/29 due to subacute worsening of chronic left lower extremity pain weakness resulting in an inability to ambulate effectively. At the time my initial evaluation the patient is resting comfortably in bed accompanied by their son; they describe that on the morning of presentation they attempted to get out of their recliner in which they usually sleep, and was unable to bear weight on the left lower extremity due to significant mid left thigh pain. They deny any specific injury related to this; they did relatively recently completed course of home health with physical therapy after hospitalization in 03/2025 and have had no regular physical therapy since that time. Both the patient and son describe some degree of progressive weakness over this period of no physical therapy. The patient denies any paresthesia or other focal weakness of the extremities, vision changes, nausea, vomiting, fever, chills, abdominal pain, increased urinary frequency or episodes of incontinence, dysuria, hematuria, headache, abdominal distention, diarrhea, hematochezia, change in their chronic lower extremity edema. There have been no recent changes to their home medication regimen Allergies Allergy/AdvReac Type Severity Reaction Status Date / Time enalapril AdvReac Intermediate Cough Verified 07/10/25 08:45 Home Medications Medication Instructions Recorded Confirmed Type acetaminophen 325 mg tablet 650 mg (2 x 325 mg) PO Q6H PRN 07/14/24 07/29/25 Rx pain #30 tabs aspirin 81 mg tablet 81 mg PO QAM 05/23/25 07/29/25 History diltiazem HCl 240 mg capsule,24 240 mg PO QAM 05/23/25 07/29/25 History hr,extended release (Tiadylt ER) potassium chloride 10 mEq 10 meq PO QAM 05/23/25 07/29/25 History tablet,extended release(part/cryst) rosuvastatin 40 mg tablet (Crestor) 40 mg PO HS 05/23/25 07/29/25 History triamterene 37.5 1 cap PO QAM 05/23/25 07/29/25 History mg-hydrochlorothiazide 25 mg capsule solifenacin 10 mg tablet (Vesicare) 10 mg PO QAM 07/29/25 07/29/25 History Past Med/Surg History Problem List (Updated 07/29/25 @ 14:34 by Cosmo Finney, ) Unable to ambulate Musculoskeletal pain of left thigh Lower extremity edema (Chronic) Hyperlipidemia (Chronic) NPH (normal pressure hydrocephalus) (Chronic) 04/2024 [facility] hospitalization [facility], current plan for monitoring/no intervention planned at this time Carotid stenosis, right Hypertension (Chronic) Medical History Ambulatory dysfunction Uses walker or wheelchair PRN Carotid stenosis, bilateral Cerebellar stroke 03/26/2025 ([facility] hospitalizaton) Son denies any noticable deficits, states patient does have mild short term memory deficit. Alert & oriented x3, signs own consents, uses walker to ambulate Degenerative joint disease of left hip Hard of hearing Does not wear hearing aids Hx of colonic polyps Hyperlipidemia Impaired fasting glucose Per records HgbA1C 8/4/25 5.6% Lower extremity edema Mitral valve disease Echo 03/26/25: Mild mitral stenosis. Mild to moderate MR NPH (normal pressure hydrocephalus) 04/2024 [facility] hospitalization Follows with [facility], current plan for monitoring/no intervention planned at this time Paresthesia of right foot Chronic Surgical History History of bilateral tubal ligation History of cholecystectomy History of colonoscopy History of left cataract extraction Hx of gynecological procedure Rectocele repair Hx of right cataract extraction Status post left hip replacement (07/2024) Family History Brother Prostate cancer Other No family history of adverse response to anesthesia Denies family history of Ovarian cancer Myocardial infarction Breast cancer Colorectal cancer Social History Smoking Status: Former smoker Tobacco Type: Cigarettes Age Started Using Tobacco: 13; Age Quit Using Tobacco: 64; packs per day: 1.25; Second Hand Exposure: Yes (hx as a child); Do You Dip or Chew Tobacco: No; Hx Alcohol Use: No Hx Substance Use: No Preferred Language: [place] Communication Ability: Effective Communication Ability Comment: mild short term memory deficit - a&o x3. signs own consents Visual Impairment: No Limitations Hearing Ability: Use of Hearing Aid Sailor Required: No Beliefs That Will Affect Care: None marital status: Current Living Situation: Alone Current Living Situation Comment: with home health services current 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 status: retired current occupation: [employer] Worker, [employer] Childhood Exposure to Second-Hand Smoke: Yes Diet: low salt Diet Comment: watches her salt intake, does this by choice caffeine: Yes during the past year weight has: remained stable Dental Care, Regularly: No Physical Activity Frequency: Daily Physical Activity Frequency Comment: walking about 30 min a day Seatbelt Use: always Sunscreen Use: No Assistive Devices: None Review of Systems Review of Systems: Review of constitutional, cardiovascular, pulmonary, gastrointestinal, musculoskeletal, genitourinary, neurologic systems was unremarkable except for pertinent positive and negative findings discussed above Physical Exam Physical Exam: General: Elderly female in no acute distress Vital Signs: Reviewed HEENT: Dry mucous membranes Pulmonary: Symmetric chest wall excursion without restriction; clear to auscultation bilaterally Cardiovascular: Regular rate and rhythm without murmurs, rubs, or gallops; S1 and S2 normal; right radial pulse 2+; bilateral lower extremity lipedema with superimposed 1+ pitting edema distal of the mid leg Gastrointestinal: Soft, nontender Musculoskeletal: Reproducible tenderness at the distal insertion site of the left thigh adductors and quadriceps; left lower extremity hip flexion strength 2/5 with remaining left lower extremity strength assessment 4/5 and right lower extremity strength assessment 4/5 Neurologic: Cranial nerves II through XII grossly intact; no paresthesias noted nor focal neurologic deficit Skin: No appreciable bruising, ecchymosis, or other evidence of secondary injury to the lower extremities Results & Data Results & Data Vital Signs (Past 12 Hours) Vital Signs Temp Pulse Pulse Resp BP BP Pulse Ox 07/29/25 12:26 94 07/29/25 12:00 61 19 143/75 H 95 07/29/25 10:00 60 17 139/71 95 07/29/25 08:00 66 17 154/81 H 96 07/29/25 06:43 36.6 C 62 18 141/83 H 96 O2 Del Method 07/29/25 12:26 Room Air 07/29/25 12:00 Room Air 07/29/25 10:00 Room Air 07/29/25 08:00 Room Air 07/29/25 06:43 Room Air Code Status & VTE Plan VTE Prophylaxis Plan VTE Prophylaxis will be ordered: Yes PG Care Time/CCT Total # of Minutes Spent Total Time Spent with Patient: Total time spent is greater than 50% in coordination of care (as documented) at patient's floor/unit and/or counseling patient: Coding Level of Care Code 35578 INT INP/OBS CARE 1/40MIN Diagnoses Musculoskeletal pain of left thigh M79.652 Unable to ambulate R26.2 NPH (normal pressure hydrocephalus) G91.2
--- NOTE | 2025-07-29 13:52 | CT Scan Report ---
CT head/brain wo con CLINICAL HISTORY: 80 years-old Female with NPH, LLE weakness. Acute weakness with normal pressure hy drocephalus TECHNIQUE: Multiple axial CT images of the head were obtained without contrast. A dose lowering tech nique was utilized adhering to the principles of ALARA. CT DOSE: 580.53 mGy.cm COMPARISON: 04/24/2025 FINDINGS: No acute intracranial hemorrhage, midline shift, intracranial mass, acute territorial ischemia or abn ormal extra-axial collection. Involutional changes with chronic microvascular ischemic disease redemo nstrated. Right temporoparietal encephalomalacia again noted along with smaller areas of encephalomal acia within the cerebellum. Dilated ventricular system is again seen with transverse dimension of the lateral ventricles measuring up to approximately 5.5 cm, previously 5.4 cm. The calvarium is intact. Trace mastoid effusions. Paranasal sinuses are generally clear. IMPRESSION: 1. No acute intracranial abnormality. 2. Unchanged ventricular dilation suggestive of normal pressure hydrocephalus. 3. Chronic microvascular ischemic disease with chronic right temporoparietal encephalomalacia. ACT 112: Negative or not required by law. The above report was generated using voice recognition software. It may contain grammatical, syntax o r spelling errors. Electronically signed by: Brad Poon M.D. 07/29/2025 1:50 PM
[2025-07-29] MEDS: ENOXAPARIN INJ 40 MG/0.4 ML SYR SQ SCH (18:56)
--- NOTE | 2025-07-30 07:53 | Hospitalist Progress Note ---
Date of Service July 30, 2025 Assessment & Plan (1) Musculoskeletal pain of left thigh: (2) Unable to ambulate: (3) NPH (normal pressure hydrocephalus): Plan In summary this is an 80-year-old female who presents after inability to safely ambulate due to progressive left thigh pain and weakness Suspect the patient has suffered a subacute left thigh adductor and quadricep strain or sprain resulting in sudden progressive inability to ambulate without significant discomfort superimposed on underlying sarcopenia/anasarca; without any acute evidence on imaging or laboratory assessment of a secondary cause nor is there examination consistent with a focal neurologic deficit that would be consequential of a TIA/CVA PT/OT consulted Anticipate either placement or discharge home with home health based on recommendations There was some degree of concern by the patient's ED provider for progressive normal pressure hydrocephalus however based on radiologist interpretation and my personal interpretation of the patient's CT head without contrast, there is been no significant progression nor her presenting findings consistent with symptomatic normal pressure hydrocephalus that would require lumbar puncture The remainder the patient's chronic medical conditions are stable and do not require adjustment to their outpatient regimen at this time DVT PPx: Continue Lovenox 40 mg SQ daily Admission and Anticipated Discharge Date Admission Date: July 29, 2025 Subjective Ms. Pastor is an 80-year-old female whose active medical conditions include normal pressure hydrocephalus, carotid stenosis, essential hypertension, chronic venous insufficiency, mixed hyperlipidemia with history of cerebellar CVA without residual deficit who presented to the [facility] on 07/29 due to subacute worsening of chronic left lower extremity pain weakness resulting in an inability to ambulate effectively No acute overnight events Review of Systems Review of Systems: Review of constitutional, cardiovascular, pulmonary, gastrointestinal, musculoskeletal, genitourinary, neurologic systems was unremarkable except for pertinent positive and negative findings discussed above Physical Exam Physical Exam: General: Elderly female in no acute distress Vital Signs: Reviewed HEENT: Moist mucous membranes Pulmonary: Symmetric chest wall excursion without restriction; clear to auscultation bilaterally Cardiovascular: Regular rate and rhythm without murmurs, rubs, or gallops; S1 and S2 normal; right radial pulse 2+; bilateral lower extremity lipedema with superimposed 1+ pitting edema distal of the mid leg Gastrointestinal: Soft, nontender Musculoskeletal: remains with tenderness at the distal insertion site of the left thigh adductors and quadriceps; left lower extremity hip flexion strength 2/5 with remaining left lower extremity strength assessment 4/5 and right lower extremity strength assessment 4/ Neurologic: Cranial nerves II through XII grossly intact; no paresthesias noted nor focal neurologic deficit Skin: No appreciable bruising, ecchymosis, or other evidence of secondary injury to the lower extremities Results & Data Results & Data Vital Signs (Past 12 Hours) Vital Signs Temp Pulse Resp BP Pulse Ox O2 Del Method 07/29/25 22:23 36.7 C 68 16 146/87 H 94 Room Air PG Care Time/CCT Total # of Minutes Spent Total Time Spent with Patient: Total time spent is greater than 50% in coordination of care (as documented) at patient's floor/unit and/or counseling patient: Coding Level of Care Code 26675 SUB INP/OBS CARE 09/16MIN Diagnoses Musculoskeletal pain of left thigh M79.652 Unable to ambulate R26.2 NPH (normal pressure hydrocephalus) G91.2
--- NOTE | 2025-07-30 08:30 | Electrocardiogram Report ---
Test Reason : Blood Pressure : */* mmHG Vent. Rate : 68 BPM Atrial Rate : 68 BPM P-R Int : 162 ms QRS Dur : 94 ms QT Int : 416 ms P-R-T Axes : 35 13 18 degrees QTcB Int : 442 ms Normal sinus rhythm Normal ECG When compared with ECG of 01-Jun-2025 09:24, No significant change was found Confirmed by Anamaria Jerry (Juwan) on 07/30/2025 8:30:29 AM Referred By: REFERRED SELF Confirmed By: Anamaria Jerry
[2025-07-30] MEDS: TRIAMTERENE/HCTZ 37.5/25MG TAB PO SCH (09:14)
[2025-07-30] MEDS: ASPIRIN 81 MG ECTAB PO SCH (09:14)
[2025-07-30] MEDS: POTASSIUM CHLORIDE 10 MEQ TABCR PO SCH (09:47)
[2025-07-30] MEDS: ROSUVASTATIN CALCIUM 20 MG TAB PO SCH (20:54)
--- NOTE | 2025-07-31 07:32 | Hospitalist Progress Note ---
Date of Service July 31, 2025 Assessment & Plan (1) Musculoskeletal pain of left thigh: (2) Unable to ambulate: (3) NPH (normal pressure hydrocephalus): Plan In summary this is an 80-year-old female who presents after inability to safely ambulate due to progressive left thigh pain and weakness Suspect the patient has suffered a subacute left thigh adductor and quadricep strain or sprain resulting in sudden progressive inability to ambulate without significant discomfort superimposed on underlying sarcopenia/anasarca; without any acute evidence on imaging or laboratory assessment of a secondary cause nor is there examination consistent with a focal neurologic deficit that would be consequential of a TIA/CVA PT/OT consulted Anticipate either placement or discharge home with home health based on recommendations There was some degree of concern by the patient's ED provider for progressive normal pressure hydrocephalus however based on radiologist interpretation and my personal interpretation of the patient's CT head without contrast, there is been no significant progression nor her presenting findings consistent with symptomatic normal pressure hydrocephalus that would require lumbar puncture The remainder the patient's chronic medical conditions are stable and do not require adjustment to their outpatient regimen at this time DVT PPx: Continue Lovenox 40 mg SQ daily Anticipate discharge in the next 24 to 48 hours after determination of acute rehab versus SNF placement Admission and Anticipated Discharge Date Admission Date: July 29, 2025 Subjective Ms. Pastor is an 80-year-old female whose active medical conditions include normal pressure hydrocephalus, carotid stenosis, essential hypertension, chronic venous insufficiency, mixed hyperlipidemia with history of cerebellar CVA without residual deficit who presented to the [facility] on 07/29 due to subacute worsening of chronic left lower extremity pain weakness resulting in an inability to ambulate effectively Episode of emesis in the late evening on 07/30, appears to have been post- tussive in etiology; no other acute events; reports feeling well today, hesitant with the proposition of placement Review of Systems Review of Systems: Review of constitutional, cardiovascular, pulmonary, gastrointestinal, musculoskeletal, genitourinary, neurologic systems was unremarkable except for pertinent positive and negative findings discussed above Physical Exam Physical Exam: General: Elderly female in no acute distress Vital Signs: Reviewed HEENT: Moist mucous membranes Pulmonary: Symmetric chest wall excursion without restriction; clear to auscultation bilaterally Cardiovascular: Regular rate and rhythm without murmurs, rubs, or gallops; S1 and S2 normal; right radial pulse 2+; bilateral lower extremity lipedema with superimposed 1+ pitting edema distal of the mid leg Gastrointestinal: Soft, nontender Musculoskeletal: remains with tenderness at the distal insertion site of the left thigh adductors and quadriceps; left lower extremity hip flexion strength 2/5 with remaining left lower extremity strength assessment 4/5 and right lower extremity strength assessment 4/5 Neurologic: Cranial nerves II through XII grossly intact; no paresthesias noted nor focal neurologic deficit Skin: No appreciable bruising, ecchymosis, or other evidence of secondary injury to the lower extremities Results & Data Results & Data Vital Signs (Past 12 Hours) Vital Signs Temp Pulse Resp BP BP Pulse Ox O2 Del Method 07/31/25 07:24 36.5 C 63 16 135/81 93 Room Air 07/30/25 23:03 36.7 C 70 16 143/81 H 92 Room Air PG Care Time/CCT Total # of Minutes Spent Total Time Spent with Patient: Total time spent is greater than 50% in coordination of care (as documented) at patient's floor/unit and/or counseling patient: Coding Level of Care Code 64706 SUB INP/OBS CARE 09/16MIN Diagnoses Musculoskeletal pain of left thigh M79.652 Unable to ambulate R26.2 NPH (normal pressure hydrocephalus) G91.2
[2025-08-01 06:57] LABS: Hematocrit (blood only) 37.8 % (37.0-47.0); Hemoglobin 12.8 g/dL (12.0-16.0); Mean Corpuscular Hemoglobin 30.9 pg (25.0-34.0); Mean Corpuscular Volume 91.3 fL (80.0-100.0); Platelet Count 222 K/uL (130-400); RDW Standard Deviation 43.1 fL (36.4-46.3); Red Blood Count 4.14 M/uL (4.20-5.40); White Blood Count 8.13 K/ul (4.8-10.8)
[2025-08-01 07:24] LABS: Albumin Level 3.4 gm/dl (3.4-5.0); Anion Gap 8.0 (3-11); Blood Urea Nitrogen 22.0 mg/dl (6-23); Calcium 8.9 mg/dl (8.6-10.3); Carbon Dioxide 28.0 mmol/L (21-32); Chloride 102.0 mmol/L (98-107); Creatinine Clr Calc Pharmacy 40.7 ml/min; Glucose 97.0 mg/dl (70-99(Fasting)); Potassium 3.7 mmol/L (3.5-5.1); Sodium 138.0 mmol/L (136-145)
--- NOTE | 2025-08-01 18:33 | Hospitalist Progress Note ---
Date of Service August 01, 2025 Assessment & Plan (1) Musculoskeletal pain of left thigh: (2) Unable to ambulate: (3) NPH (normal pressure hydrocephalus): Plan In summary this is an 80-year-old female who presents after inability to safely ambulate due to progressive left thigh pain and weakness Suspect left vastus medialis +/- adductor strain - prior CVA causing weakness in this area PT/OT consulted Anticipate either placement or discharge home with home health based on recommendations The remainder the patient's chronic medical conditions are stable and do not require adjustment to their outpatient regimen at this time DVT PPx: Continue Lovenox 40 mg SQ daily Disposition - continue on med/surg, pending placement Admission and Anticipated Discharge Date Admission Date: July 31, 2025 Subjective No acute concerns or questions. She reports pain and weakness slowly improving in left leg. Per neurology note in April patient can't walk without a walker at that appointment. Known right temporo-parietal encephalomalacia. Physical Exam Respiratory: normal respiratory effort, lungs clear to auscultation Cardiovascular: RRR, no murmur, no edema Musculoskeletal: pain over left distal vastus medialis with impaired extension of her knee Normal dorsiflexion and plantarflexion of her ankle Results & Data Results & Data Vital Signs (Past 12 Hours) Vital Signs Temp Pulse Pulse Resp BP Pulse Ox O2 Del Method 08/01/25 16:10 37.0 C 73 14 125/69 94 Room Air 08/01/25 12:00 36.7 C 16 130/78 94 Room Air 08/01/25 07:45 36.6 C 63 14 120/66 93 Room Air PG Care Time/CCT Total # of Minutes Spent Total Time Spent with Patient: Total time spent is greater than 50% in coordination of care (as documented) at patient's floor/unit and/or counseling patient: Coding Level of Care Code 81094 SUB INP/OBS CARE 09/16MIN Diagnoses Musculoskeletal pain of left thigh M79.652 Unable to ambulate R26.2 NPH (normal pressure hydrocephalus) G91.2
[2025-08-01] MEDS ORDERED: POLYETHYLENE (MIRALAX) 17 GM PACK PO PRN (23:58)
[2025-08-02] MEDS: DOCUSATE SODIUM 100 MG CAP PO SCH (00:19)
[2025-08-02] MEDS: DOCUSATE SODIUM 100 MG CAP PO ONE (06:51)
--- NOTE | 2025-08-02 20:20 | Hospitalist Progress Note ---
Date of Service August 02, 2025 Assessment & Plan (1) Musculoskeletal pain of left thigh: (2) Unable to ambulate: (3) NPH (normal pressure hydrocephalus): Plan In summary this is an 80-year-old female who presents after inability to safely ambulate due to progressive left thigh pain and weakness #Suspect left vastus medialis + adductor strain - prior CVA causing weakness in this area PT/OT consulted Anticipate either placement or discharge home with home health based on recommendations The remainder the patient's chronic medical conditions are stable and do not require adjustment to their outpatient regimen at this time DVT PPx: Continue Lovenox 40 mg SQ daily Disposition - continue on med/surg, pending placement Admission and Anticipated Discharge Date Admission Date: July 31, 2025 Subjective No acute concerns or questions. Reports mild slow improvement Physical Exam Respiratory: normal respiratory effort, lungs clear to auscultation Cardiovascular: RRR, no murmur, no edema Musculoskeletal: pain over distal vastus medialis and hamstring adductors Results & Data Results & Data Vital Signs (Past 12 Hours) Vital Signs Temp Pulse Resp BP Pulse Ox O2 Del Method 08/02/25 16:17 36.4 C L 69 18 123/71 93 Room Air 08/02/25 08:24 36.7 C 62 18 126/82 95 Room Air PG Care Time/CCT Total # of Minutes Spent Total Time Spent with Patient: Total time spent is greater than 50% in coordination of care (as documented) at patient's floor/unit and/or counseling patient: Coding Level of Care Code 62282 SUB INP/OBS CARE 09/16MIN Diagnoses Musculoskeletal pain of left thigh M79.652 Unable to ambulate R26.2 NPH (normal pressure hydrocephalus) G91.2
[2025-08-02] MEDS ORDERED: ONDANSETRON INJ 2 MG/ML 2 ML VIAL IV PRN (22:44)
[2025-08-02] MEDS: SOD PHOSPHATE/SOD BIPHOSPHATE ENEMA 132 ML BTL PR STA (23:01)
[2025-08-02] MEDS ORDERED: CALCIUM CARBONATE 500 MG CHEWABLE TAB PO PRN (23:04)
[2025-08-02] MEDS: FAMOTIDINE 20 MG TAB PO ONE (23:43)
--- NOTE | 2025-08-03 14:10 | Hospitalist Progress Note ---
Date of Service August 03, 2025 Assessment & Plan (1) Musculoskeletal pain of left thigh: (2) Unable to ambulate: (3) NPH (normal pressure hydrocephalus): Plan In summary this is an 80-year-old female who presents after inability to safely ambulate due to progressive left thigh pain and weakness #Suspect left vastus medialis + adductor strain - prior CVA causing weakness in this area PT/OT consulted Awaiting rehab placement at this time The remainder the patient's chronic medical conditions are stable and do not require adjustment to their outpatient regimen at this time DVT PPx: Continue Lovenox 40 mg SQ daily Disposition - continue on med/surg, pending placement Admission and Anticipated Discharge Date Admission Date: July 31, 2025 Subjective No acute concerns or questions. Awaiting placement at this time. Physical Exam Respiratory: normal respiratory effort, lungs clear to auscultation Cardiovascular: RRR, no murmur, no edema Results & Data Results & Data Vital Signs (Past 12 Hours) Vital Signs Temp Pulse Resp BP Pulse Ox O2 Del Method 08/03/25 07:15 37.1 C 63 16 109/71 91 Room Air PG Care Time/CCT Total # of Minutes Spent Total Time Spent with Patient: Total time spent is greater than 50% in coordination of care (as documented) at patient's floor/unit and/or counseling patient: Coding Level of Care Code 03859 SUB INP/OBS CARE 09/16MIN Diagnoses Musculoskeletal pain of left thigh M79.652 Unable to ambulate R26.2 NPH (normal pressure hydrocephalus) G91.2
--- NOTE | 2025-08-04 10:03 | Hospitalist Progress Note ---
Date of Service August 04, 2025 Assessment & Plan (1) Musculoskeletal pain of left thigh: Plan: -Suspect left vastus medialis + adductor strain - prior CVA causing weakness in this area PT/OT consulted Awaiting rehab placement (2) NPH (normal pressure hydrocephalus): Plan In summary this is an 80-year-old female who presents after inability to safely ambulate due to progressive left thigh pain and weakness DVT PPx: Continue Lovenox 40 mg SQ daily Disposition - continue on med/surg, pending placement Admission and Anticipated Discharge Date Admission Date: July 31, 2025 Subjective No events overnight. Pt resting comfortably in bed. Review of Systems Review of Systems: CONST: Negative for fever, body aches and chills. HENT: Negative for neck pain/stiffness, headache, congestion, sore throat, swelling. EYES: Negative for discharge/pain or vision changes. RESP: Negative for cough/hemoptysis and shortness of breath. CV: Negative chest pain, difficulty breathing, palpitations. ABD: Negative pain, nausea, vomiting. : Negative increase frequency, dysuria, blood in urine or stool. MUSC: Negative for muscle aches, edema. SKIN: Negative rash, lesions/sores. NEURO: Negative headache, dizziness, weakness. Physical Exam Physical Exam: GENERAL APPEARANCE NAD, activity normal for age, well developed/ well nourished, no cyanosis, pallor, or diaphoresis. EYES lids/conjunctiva normal. EARS/NOSE/THROAT Mucous membranes moist, nares normal, lips/teeth normal uvula midline without oral pharyngeal erythema, exudate or swelling TMs normal bilaterally. No lymphangitis/lymphedema. HEAD/NECK normocephalic atraumatic, no facial trauma, neck is supple. RESPIRATORY respiratory effort normal, speaks in full sentences, no tripod position, no accessory muscle use. Lungs clear to auscultation without rhonchi, wheezes, rales CARDIAC Regular rate and rhythm, no edema. ABDOMINAL Soft, ND/NT. No evidence of fluid wave. No pulsatile masses on exam, rebound tenderness, sign or pain over Mcburney's point. MUSCLES/EXTREMITIES No abnormal range of motion, no swelling. SKIN Warm, pink and dry. No rashes, dermatoses, petechiae or lesions. NEUROLOGICAL Speech is clear and appropriate. Normal level of consciousness. Gait and coordination are normal. 5/5 strength in all extremities. PSYCH Normal mood and affect. Judgement/competence is appropriate Results & Data Results & Data Vital Signs (Past 12 Hours) Vital Signs Temp Pulse Resp BP Pulse Ox O2 Del Method 08/04/25 07:45 36.7 C 63 18 121/57 L 96 Room Air PG Care Time/CCT Total # of Minutes Spent Total Time Spent with Patient: Total time spent is greater than 50% in coordination of care (as documented) at patient's floor/unit and/or counseling patient: Coding Level of Care Code 59664 SUB INP/OBS CARE 2/35MIN Diagnoses Musculoskeletal pain of left thigh M79.652 NPH (normal pressure hydrocephalus) G91.2
--- NOTE | 2025-08-05 10:00 | Hospitalist Progress Note ---
Date of Service August 05, 2025 Assessment & Plan (1) Musculoskeletal pain of left thigh: Plan: -Suspect left vastus medialis + adductor strain - prior CVA causing weakness in this area PT/OT consulted Awaiting rehab placement (2) NPH (normal pressure hydrocephalus): Plan In summary this is an 80-year-old female who presents after inability to safely ambulate due to progressive left thigh pain and weakness DVT PPx: Continue Lovenox 40 mg SQ daily Disposition - continue on med/surg, pending placement Admission and Anticipated Discharge Date Admission Date: July 31, 2025 Subjective No events overnight. Pt resting comfortably in bed. Review of Systems Review of Systems: CONST: Negative for fever, body aches and chills. HENT: Negative for neck pain/stiffness, headache, congestion, sore throat, swelling. EYES: Negative for discharge/pain or vision changes. RESP: Negative for cough/hemoptysis and shortness of breath. CV: Negative chest pain, difficulty breathing, palpitations. ABD: Negative pain, nausea, vomiting. : Negative increase frequency, dysuria, blood in urine or stool. MUSC: Negative for muscle aches, edema. SKIN: Negative rash, lesions/sores. NEURO: Negative headache, dizziness, weakness. Physical Exam Physical Exam: GENERAL APPEARANCE NAD, activity normal for age, well developed/ well nourished, no cyanosis, pallor, or diaphoresis. EYES lids/conjunctiva normal. EARS/NOSE/THROAT Mucous membranes moist, nares normal, lips/teeth normal uvula midline without oral pharyngeal erythema, exudate or swelling TMs normal bilaterally. No lymphangitis/lymphedema. HEAD/NECK normocephalic atraumatic, no facial trauma, neck is supple. RESPIRATORY respiratory effort normal, speaks in full sentences, no tripod position, no accessory muscle use. Lungs clear to auscultation without rhonchi, wheezes, rales CARDIAC Regular rate and rhythm, no edema. ABDOMINAL Soft, ND/NT. No evidence of fluid wave. No pulsatile masses on exam, rebound tenderness, sign or pain over Mcburney's point. MUSCLES/EXTREMITIES No abnormal range of motion, no swelling. SKIN Warm, pink and dry. No rashes, dermatoses, petechiae or lesions. NEUROLOGICAL Speech is clear and appropriate. Normal level of consciousness. Gait and coordination are normal. 5/5 strength in all extremities. PSYCH Normal mood and affect. Judgement/competence is appropriate Results & Data Results & Data Vital Signs (Past 12 Hours) Vital Signs Temp Pulse Resp BP Pulse Ox O2 Del Method 08/05/25 09:46 Room Air 08/05/25 09:44 36.6 C 70 18 111/67 94 Room Air 08/04/25 22:24 36.6 C 57 L 16 117/75 94 Room Air PG Care Time/CCT Total # of Minutes Spent Total Time Spent with Patient: Total time spent is greater than 50% in coordination of care (as documented) at patient's floor/unit and/or counseling patient: Coding Level of Care Code 47538 SUB INP/OBS CARE 2/35MIN Diagnoses Musculoskeletal pain of left thigh M79.652 NPH (normal pressure hydrocephalus) G91.2
[2025-08-06 00:03] VITALS: RESP 16
--- NOTE | 2025-08-06 13:11 | Discharge Summary ---
Discharge Summary Date of Service August 06, 2025 Principal Dx & Hospital Course #1 = Principal Diagnosis (1) Musculoskeletal pain of left thigh: -Suspect left vastus medialis + adductor strain - prior CVA causing weakness in this area PT/OT consulted Awaiting rehab placement (2) NPH (normal pressure hydrocephalus): Plan In summary this is an 80-year-old female who presents after inability to safely ambulate due to progressive left thigh pain and weakness DVT PPx: Continue Lovenox 40 mg SQ daily Disposition - continue on med/surg, pending placement Admission HPI Per Admitting Provider Ms. 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 At the time my initial evaluation the patient is resting comfortably in bed accompanied by their son; they describe that on the morning of presentation they attempted to get out of their recliner in which they usually sleep, and was unable to bear weight on the left lower extremity due to significant mid left thigh pain. They deny any specific injury related to this; they did relatively recently completed course of home health with physical therapy after ho spitalization in 03/2025 and have had no regular physical therapy since that time. Both the patient and son describe some degree of progressive weakness over this period of no physical therapy. The patient denies any paresthesia or other focal weakness of the extremities, vision changes, nausea, vomiting, fever, chills, abdominal pain, increased urinary frequency or episodes of incontinence, dysuria, hematuria, headache, abdominal distention, diarrhea, hematochezia, change in their chronic lower extremity edema. There have been no recent changes to their home medication regimen Discharge Plan Discharge Items Patient Disposition: Transfer Inpatient Rehab Fac Reason For Visit: INABILITY TO AMBULATE Discharge Diagnosis: Vastus medialis strain Condition on Discharge: Fair Activity: Resume your previous activity Non-emergency contact: Primary Care Provider Call non-emergency contact if: you have any medication questions and your symptoms worsen Follow-up/Referrals: Ely Bain MD [Primary Care Provider] - Diet: Heart Healthy Addtl Attending Provider Instructions: You were admitted to [facility] from July [id number] due to progressive left thigh pain and weakness. You were diagnosed with a vastus medialis strain. You were treated with physical therapy and recommend ongoing physical therapy as inpatient. Pending Studies at Discharge: No Stand-Alone Forms: My [facility] Skilled Items Patient informed of condition?: Yes DNR: Yes Discharge Level of Care: Acute rehab Communicable Disease: No Discharge Prognosis: Stable Lines: None Urinary Catheter: No Medications and DC Order Prescriptions: Continued acetaminophen 325 mg Tablet 650 mg PO Q6H PRN (Reason: pain) Qty: 30 0RF diltiazem HCl [Tiadylt ER] 240 mg capsule,extended release 24hr 240 mg PO QAM triamterene-hydrochlorothiazid 37.5-25 mg capsule 1 cap PO QAM aspirin 81 mg tablet 81 mg PO QAM Rx Instructions: PER PT'S FAMILY "HAS NOT STARTED YET". rosuvastatin [Crestor] 40 mg tablet 40 mg PO HS potassium chloride 10 mEq tablet,ER particles/crystals 10 meq PO QAM solifenacin [Vesicare] 10 mg tablet 10 mg PO QAM Discharge Orders: Discharge Order (Routine); Ordered 08/06/25 Ordered By: Angelo Luo Admission Data Admit Date/Time: 07/31/25 11:55 Attending Provider: Angelo Luo Admit Provider: Cosmo Finney Primary Care Provider: Ely Bain Other Providers: Cosmo Finney; [facility]; Monique Price; [facility]; [facility] Hospital Stay Data Consultations 07/29/25 13:19 ED Decision to Admit Stat Diagnostic Imagining Performed 07/29/25 08:03 CT abd pelvis wo con Stat CT lumbar spine wo con Stat 07/29/25 11:41 CT head/brain wo con Stat Pending Results Patient Have Any Pending Studies at Discharge: No Discharge Instructions Given to Patient (Per Discharging Provider) You were admitted to [facility] from July 29 - 2024 due to progressive left thigh pain and weakness. You were diagnosed with a vastus medialis strain. You were treated with physical therapy and recommend ongoing physical therapy as inpatient. Coding Diagnoses Musculoskeletal pain of left thigh M79.652 NPH (normal pressure hydrocephalus) G91.2
[2025-08-06 14:31] VITALS: BP 128/80; PULSE 72; TEMP 97.7; O2SAT 95
== END 2025-08-06 16:20 | DRG 537 ==
LOC: ED 06:35 → 3W 06:35 → OBSVTOIN 13:36 → 3W 15:00 → SUATTDRO 07-31 11:55